=== PATIENT | male | born 1940 | race Caucasian/White ===

== ENCOUNTER → 2017-03-25 | Outpatient (CLI) | payer MEDICARE ==
[~2017-03-25] MED LIST: AMLO5TAB2 PO; APIX1TAB PO; ASPI81TA28 PO; CHOL1000 PO; COEN1CAP7 PO; CTP/1 PO; FENO145T26 PO; FOLI20CA PO; FURO20TA PO; GLUCTAB32 PO; INSDGI SC; INSU100I2 SC; IRBE1TAB50 PO; LABE200T3 PO; LEUP30IN3 IM; MAGN250T16 PO; NIAC50TA9 PO; NITR0.4S UT; OMG3 PO; PANT1TAB48 PO; TAMS0.4C38 PO; TRAM-10 PO; VITA400C15 PO
[2017-03-25 18:40] LABS: URINE APPEARANCE CLEAR (CLEAR); URINE BILIRUBIN NEG (NEG); URINE COLOR DK YELLOW; URINE NITRITE NEG (NEG); UROBILINOGEN NEG (NEG)
[2017-03-25 18:41] LABS: MANUAL MICROSCOPIC REQUIRED? NO; REVIEW REQ? NO
== END ==
LOC: C.LABSPEC 17:41
PROVIDERS: ATTEND Family Medicine
DX: R30.0 Dysuria (principal)

== ENCOUNTER → 2017-04-03 | Outpatient (CLI) | payer MEDICARE ==
[~2017-04-03] VITALS: Ht 180.3 cm; Wt 115.3 kg
[2017-04-03 09:38] VITALS: BP 104/53; PULSE 86; Ht 180.3 cm; Wt 115.3 kg
== END | disposition home or self-care (01) ==
LOC: C.NEUR 09:15
PROVIDERS: ATTEND Internal Medicine Pulmonary Disease
DX: G47.33 Obstructive sleep apnea (adult) (pediatric) (principal); E66.9 Obesity, unspecified; R06.02 Shortness of breath

== ENCOUNTER → 2017-04-03 | Outpatient (CLI) | payer MEDICARE ==
[2017-04-03 09:57] LABS: CHOLESTEROL/HDL RATIO 3.9
[2017-04-03 10:49] LABS: ESTIMATED AVERAGE GLUCOSE 157 mg/dl; HA1C FLAG Normal (Normal)
== END | disposition home or self-care (01) ==
LOC: C.LAB 07:42
PROVIDERS: ATTEND Internal Medicine Interventional Cardiology
DX: I25.10 Atherosclerotic heart disease of native coronary artery without angina pectoris (principal); E78.2 Mixed hyperlipidemia; E11.9 Type 2 diabetes mellitus without complications; G47.33 Obstructive sleep apnea (adult) (pediatric); E66.9 Obesity, unspecified; R06.02 Shortness of breath

== ENCOUNTER → 2017-05-09 | Outpatient (CLI) | payer MEDICARE ==
[2017-05-09 13:01] LABS: ESTIMATED AVERAGE GLUCOSE 148 mg/dl; HA1C FLAG Normal (Normal)
[2017-05-09 13:42] LABS: ALT/SGPT 25 U/L (12-78); AST/SGOT 20 U/L (15-37); BLOOD UREA NITROGEN 22 mg/dl (7-18)
== END | disposition home or self-care (01) ==
LOC: C.LABPBG 07:50
PROVIDERS: ATTEND Urology
DX: C61 Malignant neoplasm of prostate (principal); I25.10 Atherosclerotic heart disease of native coronary artery without angina pectoris; I65.22 Occlusion and stenosis of left carotid artery; N18.3 Chronic kidney disease, stage 3 (moderate); E11.65 Type 2 diabetes mellitus with hyperglycemia; E78.5 Hyperlipidemia, unspecified; I12.9 Hypertensive chronic kidney disease with stage 1 through stage 4 chronic kidney disease, or unspecified chronic kidney disease; G62.9 Polyneuropathy, unspecified; Z51.81 Encounter for therapeutic drug level monitoring

== ENCOUNTER → 2017-05-24 | Outpatient (CLI) | payer MEDICARE ==
--- NOTE | 2017-05-25 05:53 | PAP/PSG TECHNICIAN REPORT ---
[facility] Overnight Caregiver Polysomnogram Report Study name: None Report date: 05/25/2017 Study date: 05/24/2017 Referring Physician: Dr. Walker Name: VERONICA ALEX Interpreting Physician: Kiko Walker D.O. Date of : 1940 Overnight Caregiver: Zachariah Hewitt RPSGT. Sex: Male Age: 77 StudyType: PSG Weight: 254 lbs Height: 77 years, Height 5' 8" BMI: 38.62 Medications: TRAMADOL HCL 50 MG, ALFUZOSIN HCL ER 10 MG, ASPIRIN 81 MG, LABETALOL HCL 100 MG, HUMALOG, LANTUS, PANTOPRAZOLE SODIUM 40 MG, AMLODIPINE BESYLATE 5 MG, AVAPRO 300 MG, CLONIDINE HCL 0.2 MG, LABETALOL HCL 100 MG, NORVASC, FENOFIBRATE 145 MG, MAGNESIUM 500 MG, COQ 10 100 MG, SLIQUIS 2.5 MG, FOLIC ACID 20 MG, GLUCOSAMINE CHONDR 1500 COMPLEX OMEGA 3, VITAMIN D Patient History PATIENT HAS HISTORY OF DIABETES, HYPERTENSION AND OBESITY. HE GENERALLY GOES TO SLEEP AT DIFFERENT TIMES AND DOESN;T HAVE A REGULAR SLEEP ROUTINE. HE WAS TOLD THAT HE SNORES AND HE DOES HAVE SOME FATIGUE DURING THE DAY. HE IS HERE TODAY FOR AN EVALUATION FOR ESTRELLA. ESS = 8 RM 7 Parameters Monitored NPSG: E1-M2, E2-M1, Fp1-M2, Fp2-M1, F3-M2, F4-M2, F4-M1, C3-M2, C4-M2, C4-M1, O1-M2, O2-M2, O2-M1, T3-M2, T4-M1, P3-M2, P4-M1, CHIN1, CHIN2, HR, EKG, Legs, PFLOW, SNOR, FLOW, CFLOW, Tidal Volume, THOR, ABDO, SpO2, PLTH, CPRESS, ETCO2 Wave, ETCO2, pH Sleep Architecture Sleep Stages Time at Lights Off 10:28:02 PM STAGES Time (min.) TST (%) Time at Lights On 5:26:32 AM Wake 69.0 -- Total Recording Time (TRT) 419.50 min. N1 28.0 8 Total Sleep Period (TSP) 408.0 min. N2 270.0 77 Total Sleep Time (TST) 349.5min. N3 6.5 2 Awake Time 70.0 min. REM 45.0 13 Wake after Sleep Onset 69.0 min. Sleep Efficiency (SE) 84 % Sleep Onset Latency (ROGER) 0.0 min. Number of Stage 1 Shifts None Awakenings 19 Stage Changes 93 Number of REM periods 3 REM 45.0 13 REM Latency 271.5 min. NREM 304.5 87 Body Position Analysis Supine Right Left Side Prone Vertical Total Sleep Time (min.) 244.2 113.5 23.2 136.69 0.0 0.0 Total Sleep Time (%) 61% 32% 7% 39 0% N/A% Total Sleep Time REM (min.) 20.0 21.5 3.5 None 0.0 0.0 Total Sleep Time NREM (min.) 192.8 92.0 19.7 None 0.0 0.0 Intermittent Wake (min.) 31.4 26.0 11.5 None 0.0 0.0 Total Sleep Period (%) 57% None None None None None Arousals Myoclonus (PLM) * Events Count Index Events Count Index Spontaneous 43 7 Events Awake (PLMW) 103 89.6 Respiratory 37 6.9 Events Asleep w/ Arousal (PLMA) 2 0.3 PLM 2 0 Events Asleep w/o Arousal (PLMS) 47 8.1 Snoring 19 3 Total Asleep 49 8.4 Total 101 17 Total 152 22 Respiratory Analysis * CA OA MA CH H RERA Total Count 0 2 0 0 130 3 132 Index 0.0 0.3 0.0 0 22.3 1 23.2 Mean Duration 0.0 17.6 0.0 0.00 22.1 17.1 22.0 Longest Duration 0.0 19.9 0.0 0.00 0.0 20.0 50.5 Respiratory Event Summary Total Supine ~Supine Right Left Prone REM NREM Apneas Count 2 2 0 0 0 N/A 0 2 Index 0.3 1 0 0.0 0.0 N/A 0 0 Hypopneas (4% Desat) Count 130 114 16 15 1 N/A 23 107 Index 22.3 32.1 7 7.9 2.6 N/A 30.7 21.1 Apneas & All Hypopneas Count 132 116 16 15 1 N/A 23 109 Index 22.7 33 7 8 3 N/A 30.7 21.5 Respiratory Events (Process Manufacturing Engineer+All Hyp+RERA) Count 132 119 16 15 1 N/A 23 109 Index 23.2 34 7 7.9 2.6 N/A 30.7 22.1 Respiratory Related Arousal Count 37 119 2 2 0 N/A 2 38 Index 6.9 11 1 1 0 N/A 3 7 Snoring Analysis Supine Right Left Prone REM NREM Total Snore duration 8.2 min Snores count 327 5 0 N/A 57 275 332 Snore mean duration 1.5 Sec Snores index 92 3 0 N/A 76.0 54.2 57.0 TST with snoring (%) 2.3% Desaturation Event Summary: Minimum %SpO2 Event Count Mean/Min/Max Duration(sec.) Desaturation Index % Time In Bed > 90 121 34.1 / 10.5 / 71.0 24.4 75.0 86 - 90 19 30.9 / 16.3 / 51.3 12.4 23.2 81 - 85 0 N/A 0.0 1.6 76 - 80 0 N/A 0.0 0.2 71 - 75 0 N/A 0.0 0.0 66 - 70 0 N/A 0.0 0.0 61 - 65 0 N/A 0.0 0.0 56 - 60 0 N/A 0.0 0.0 51 - 55 0 N/A 0.0 0.0 < 50 0 N/A 0.0 0.0 Total REM NREM Awake <50% 0.0 min. 0.0 min. 0.0 min. 0.0 min. 51 - 60% 0.0 min. 0.0 min. 0.0 min. 0.0 min. 61 - 70% 0.0 min. 0.0 min. 0.0 min. 0.0 min. 71 - 80% 1.0 min. 0.3 min. 0.6 min. 0.1 min. 81 - 90% 98.3 min. 14.9 min. 74.7 min. 8.7 min. 91 - 100% 297.7 min. 29.0 min. 222.9 min. 45.8 min. Average 91 91 91 92 Minimum SpO2 77 78 77 79 Desaturation Event Index 18.4 28.0 19.5 7.0 # Desat. Events below 89% 87 15 66 6 Time(%) with Saturation below 89% 7.8 1.6 5.6 0.6 Time(min.) with Saturation below 89% 31.0 6.4 22.4 2.3 Time (mins) REM (mins) NREM (mins) % of TST SpO2 Below 90% 112 21 N91 13.7 SpO2 Below 88% 47 0 0 5 Heart Rate Analysis Min (bpm) Max (bpm) Average (bpm) Awake 55 145 91 NREM 41 133 84 REM 64 141 85 Overall 41 141 84 Supplemental O2 Values Minimum O2 level: None Value Start Time End Time Overnight Caregiver Comments Mr. Alex slept in the right, left and supine positions. EKG was irregular at times and increased HR noted. Leg movements noted. No bruxism noted. Snoring was noted and scored as a 3 on a scale of 1 through 5. (0=no snoring, 5=snoring loud enough to be heard through a closed door or down the [address] way) Mr. Alex awoke to use the restroom 1 time during the night. Mr. Alex stated I slept as well as I do when I am in my own bed. The final report will be interpreted and signed by a sleep physician. The completed physician report will then be placed in the patient medical record. Therapy (cm H2O) 0 TIB (min.) 418.5 TST (min.) 349.5 Sleep Onset (min.) 0.0 REM Onset From Sleep (min.) 271.5 Sleep Efficiency % 84 Wakefulness (%) 16 Wakefulness (min.) 70.0 NREM 1 (%) 8 NREM 1 (min.) 28.0 NREM 2 (%) 77 NREM 2 (min.) 270.0 NREM 3 (%) 2 NREM 3 (min.) 6.5 REM (%) 13 REM (min.) 45.0 # Arousals 101 Arousal Index 17 # Snore 332 Snore Index 57.0 AHI 22.7 AHI Supine 33 AHI Non-Supine 7 NREM AHI 21.5 REM AHI 30.7 RDI 23.2 # Obstructive Apnea 2 # Central Apnea 0 # Mixed Apnea 0 # Hypopneas 130 RERAs 3 Total Respiratory Events 135 Time Below SpO2 89% (min.) 28.8 Mean NREM SpO2 (%) 91 Mean REM SpO2 (%) 91 Mean Sleep SpO2 (%) 91 Min NREM SpO2 (%) 77 Min REM SpO2 (%) 78 Position Supine (min.) 244.2 Position Non-supine (min.) 136.7 LM Index Sleep 8.4 LM Index NREM 7.5 LM Index REM 14.7 Mean Heart Rate (bpm) 84 Min Heart Rate (bpm) 41
--- NOTE | 2017-06-02 17:48 | Sleep Study ---
Sleep Study Report Date of Service: 05/24/2017 Sleep Study Report CLINICAL DATA: Patient is referred by Dr. Rojo for an in-lab sleep study. He is a 77-year- old male with a history of snoring, disturbed nocturnal sleep, and daytime tiredness. He has an [place] score of 8 out of a possible 24. The patient was hospitalized earlier this year with pneumonia. He was told of probable sleep apnea at that time. His BMI is elevated at 38.62. SLEEP ARCHITECTURE: The total sleep period is 408.0 minutes. The total sleep time is 349.5 minutes. The sleep efficiency is mildly reduced to 84 percent. Sleep onset latency was 0 minutes wake after sleep onset was 69 minutes. The REM latency was severely prolonged to 271.5 minutes. Sleep consisted of stage N1 8 percent , stage N2 77 percent, stage N3 2 percent, and stage REM 13 percent. AROUSAL DATA: Patient had a total of 101 arousals including 43 spontaneous arousals, 37 respiratory arousals, 2 PLM arousals, and 19 snoring arousals. The arousal index was 17. PLM data: The patient had 49 periodic limb movements of sleep for an index of 8.4. There were 2 arousals for a PLM arousal index of only 0.3. RESPIRATORY DATA: Patient had a total of 132 respiratory events including 2 obstructive apneas and 130 hypopneas. Hypopneas were scored according to the 4 percent desaturation rule. The longest apnea was 19.9 seconds. The mean duration of the hypopneas was 22.1 seconds. The apnea-hypopnea index was moderately elevated at 22.7 events per hour. This is compatible with moderate sleep apnea. OXIMETRY DATA: The average saturation was 91 percent. The minimum saturation was 77 percent. There was a total of 31 minutes with saturations less than 89 percent. EKG: The underlying cardiac rhythm was atrial fibrillation. The rates were elevated throughout the night. Most of the night the heart rate was about 130. The maximum heart rate was 145. 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 EKG was irregular and increased heart rate noted. Leg movements noted. No bruxism noted. Snoring was noted and scored as a 3 on a scale of 1 through 5. IMPRESSIONS: 1. Obstructive sleep apnea-moderate 2. Cardiac arrhythmia-probable atrial fibrillation with increased rate COMMENTS: The patient has moderate sleep apnea. The majority of the events occurred when the patient was supine. His apnea-hypopnea index in the supine position was 33 and was only 7 in the nonsupine positions. More prominent was his cardiac arrhythmia with increased heart rates. It is unknown with certainty if the patient has a history of atrial fibrillation. Clearly the patient should be treated for sleep apnea. RECOMMENDATIONS: 1. It is advised that the patient be treated with nasal CPAP. This could either be done with an in-lab CPAP titration or with auto CPAP. 2. The patient should contact his primary care physician as soon as possible for an evaluation regarding the increased heart rate. 3. Weight loss is advised in light of the elevation of body mass index of 38.62. Copies To 1: Kiko Walker DO; Mary Rojo M.D.
== END | disposition home or self-care (01) ==
LOC: C.NEUR 21:00
PROVIDERS: ATTEND Internal Medicine Pulmonary Disease
DX: G47.33 Obstructive sleep apnea (adult) (pediatric) (principal)

== ENCOUNTER → 2017-06-20 | Outpatient (CLI) | payer MEDICARE | END | disposition home or self-care (01) | LOC: C.PATHSPEC 10:47 | PROVIDERS: ATTEND Urology | DX: C61 Malignant neoplasm of prostate (principal); R82.8 Abnormal findings on cytological and histological examination of urine ==

== ENCOUNTER → 2017-07-25 | Outpatient (CLI) | payer MEDICARE ==
[~2017-07-25] VITALS: Ht 179.1 cm; Wt 118.6 kg
[2017-07-25 12:27] VITALS: BP 110/67; PULSE 80; Ht 179.1 cm; Wt 118.6 kg
== END | disposition home or self-care (01) ==
LOC: C.NEUR 11:23
PROVIDERS: ATTEND Internal Medicine Pulmonary Disease
DX: G47.33 Obstructive sleep apnea (adult) (pediatric) (principal); R06.02 Shortness of breath; J84.9 Interstitial pulmonary disease, unspecified

== ENCOUNTER → 2017-08-02 | Outpatient (CLI) | payer MEDICARE ==
--- NOTE | 2017-08-02 12:30 | DIAGNOSTIC IMAGING REPORT ---
(CHEST) THORAX WITHOUT CLINICAL HISTORY: R06.02 SOB (shortness of breath)J84.9 Interstitial lung diseaseC COMPARISON STUDY: 01/25/2016 CT DOSE: 994.61 mGy.cm TECHNIQUE: CT of the thorax was performed from the thoracic inlet to the lung bases. Images are reviewed in the axial, sagittal, and coronal planes. IV contrast was not administered for this examination. A dose lowering technique was utilized adhering to the principles of ALARA. FINDINGS: Thyroid: Imaged portions of the thyroid gland are normal in appearance. Thoracic aorta: The ascending thoracic aorta measures 35 mm. Heart: The heart is enlarged. There are coronary artery calcifications present. Lungs and pleural spaces: There are no significant pleural effusions. There is a 2 cm left lower lobe lung cyst. There is no lobar consolidation. There are scattered granulomatous calcifications present. There is mild subpleural reticulation. There is minor bronchiectasis. There is mild right lower lobe honeycombing. This is a UIP pattern. Mediastinum: There is no mediastinal lymphadenopathy. Zarina: There is no evidence of pathologic hilar adenopathy given the limitations of a noncontrast study Axilla: There is no evidence of pathologic axillary lymphadenopathy Upper abdomen: There is stable hepatic calcifications Skeletal structures: There are no lytic or blastic osseous lesions. IMPRESSION: 1. Slight progression in the subpleural reticulation, mild lower lobe bronchiectasis, and right lower lobe honeycombing. This is a UIP pattern. Electronically signed by: Reji Grimm M.D. 08/02/2017 12:29 PM Dictated Date/Time: 08/02/2017 12:23 PM
== END | disposition home or self-care (01) ==
LOC: C.CTS 12:05
PROVIDERS: ATTEND Internal Medicine Pulmonary Disease
DX: J84.9 Interstitial pulmonary disease, unspecified (principal); R06.02 Shortness of breath

== ENCOUNTER → 2017-11-21 | Outpatient (CLI) | payer MEDICARE ==
[~2017-11-21] MED LIST changes: +ACET-24 PO; +IRBE-39 PO; +LABE1TAB28 PO; +NIAC500T11 PO; +ONDA-170 PO; +PANT1TAB3 PO; -PANT1TAB48 PO
[2017-11-21 13:35] VITALS: BP 170/76; PULSE 66; TEMP 36.6; O2SAT 97
--- NOTE | 2017-11-21 16:42 | Radiation Oncology Follow-Up ---
Radiation Oncology Follow-Up Date of Visit Nov 21, 2017. Reason For Visit Annual follow-up Radiation Completion Date 04/17/16 Diagnosis (1) Prostate cancer Status: Resolved Onset Date: 09/07/2015 Permanent Comment: DIAGNOSIS: Prostate, adenocarcinoma, jeanne 4 + 3, PSA 6.0 , cT1cN0, group IIA Rising PSA, pretreatment PSA 6.02 Status post biopsies 09/07/2015 revealing adenocarcinoma TREATMENT: 1. Brachytherapy - 01/17/16 - Cesium-131 - 8500 cGy 2. Lupron - 6 month ADT, neoadjuvant, concurrent, adjuvant 3. Prostate seed implant completed 01/17/2016 receiving 8500 cGy 51 seeds were placed 4. Status post completion of IMRT/IGRT completed 04/17/2016 received 4500 cGy Last Edited By: Charlene Grullon on April 27, 2016 09:52 History of Present Illness Mr. Ortez has a history of noninvasive bladder cancer treated with TURBT and intravesicular BCG therapy who recently presented with an elevated PSA of 6.02. This prompted a a transrectal ultrasound-guided biopsy which was completed by Dr. Gann on 09/07/2015 which revealed prostate cancer and 8/14 cores. Perineural invasion was identified. Jeanne 3+4 = 7 and [place] 4+3 = 7 prostate adenocarcinoma was identified in all of the biopsy specimens that were positive for cancer. Currently, he has not had any staging workup scans. He recently met with radiation oncology (Dr. Calderón) and GEETA Gerard. They recommended androgen deprivation therapy with external beam radiation therapy. He was given hormonal suppression for a total 6 months. He had a prostate seed implant 01/17/2016 followed by IMRT/IGRT. Interim History He is been doing well over this past year. He denies any difficulty with urination. He gave an AUA score of 5. He completed expanded prostate cancer index composite for clinical practice and gave a score of 0 of 12 in urinary incontinence symptoms. He gave a score of 0 of 12 urinary irritation symptoms. He gave a score of 0 of 12 in bowel symptoms. He gave a score of 12 of 12 and sexual symptoms. He gave a score of 412 and hormonal vitality symptoms. His total was 16 of 60. He continues to have hot flashes though the hormone suppression was completed nearly a year ago. These are less frequent and less intense over time. He has had recheck PSAs. He had a PSA 05/09/2017 that was 0.014. Allergies Coded Allergies: No Known Allergies (Unverified , 01/17/16) Home Medications Scheduled Amlodipine Besylate (Norvasc), 5 MG PO DAILY Apixaban (Eliquis), 2.5 MG PO BID Aspirin (Aspirin Ec), 81 MG PO DAILY Cholecalciferol (Vitamin D3), 1 TAB PO QAM Clonidine Hcl (Catapres), 0.2 MG PO TID Coenzyme Q10 (Ubidecarenone) (Coq10), 1 CAP PO QPM Fenofibrate (Tricor), 50 MG PO QAM Fish Oil (Fish Oil), 4 CAP PO BID Folic Acid (Folic Acid), 40 MG PO BID Furosemide (Lasix), 1 TAB PO QAM Cnlymropsoq-Ermbltmumlx-Rz Cho (Glucosamine Chondroitin &), 1 TAB PO BID Insulin Glargine (Lantus), 34 UNITS SC BID Insulin Lispro (Human) (Humalog Kwikpen), 10-16 UNITS SC AC Irbesartan (Irbesartan), 1 TAB PO QPM Labetalol Hcl (Trandate), 100 MG PO BID Magnesium Oxide (Mg Supplement (Magnesium Oxide), 500 MG PO QAM Niacin (Niacin), 150 MG PO HS Scheduled PRN Tramadol (Ultram), 50 MG PO Q4-6H PRN for Pain Review of Systems Gastrointestinal: Symptoms: WNL, Constipation GI Comments: uses minreral oil prn Oral: Symptoms: No Problems Respiratory: Symptoms: WNL Respiratory Comments: using CPAP hs Urinary: Symptoms: WNL Comments: nocturia times 2 Skin: Symptoms: No Problems Other Skin Symptoms: " dry " Physical Exam Vital Signs Date Time Temp Pulse Resp B/P (MAP) Pulse Ox O2 Delivery O2 Flow Rate FiO2 11/21/17 13:35 36.6 66 20 170/76 97 Fatigue: None General Appearance: no apparent distress Eyes: normal inspection, EOMI ENT: normal ENT inspection, hearing grossly normal Neck: no adenopathy, thyroid normal Respiratory/Chest: lungs clear, no respiratory distress, no accessory muscle use Cardiovascular: regular rate, rhythm, no gallop, no murmur Abdomen: non tender, soft, no organomegaly Extremities: no pedal edema Neurologic/Psychiatric: no motor/sensory deficits, alert, normal mood/affect Skin: warm/dry Pain Management Patient Reports Pain: No Side: Bilateral Pain Location: None Patient Preferred Pain Scale: 0 - 10 Initial Pain Intensity: 0.0 Pain Management Plan He denies pain therefore requires no pain management. Laboratory Laboratory Results: were reviewed, and pertinent findings noted below Laboratory Comments: Test 11/21/17 13:54 Prostate Specific Antigen 0.032 ng/ml (0.000-4.000) Assessment & Plan Plan: He was also seen today by Dr. Crowley. The PSA was drawn and he'll be notified as to results. He'll continue either follow-up with Dr. Weinstein and have a recheck PSA in 6 months. We asked him to return to our office in 1 year. He may call if he has the questions or concerns in the interim. Total Time In Follow-Up I spent 20 minutes speaking to the patient and performing examination. I spent 15 minutes reviewing information in completing this note. Copy To George Weinstein MD; Augusto Kye M.D.; Mary Rojo MD
== END | disposition home or self-care (01) ==
LOC: C.ONC 13:22
PROVIDERS: ATTEND Physician Assistant Medical
DX: Z08 Encounter for follow-up examination after completed treatment for malignant neoplasm (principal); Z92.3 Personal history of irradiation; Z85.46 Personal history of malignant neoplasm of prostate

== ENCOUNTER → 2018-04-09 | Outpatient (CLI) | payer MEDICARE ==
[~2018-04-09] MED LIST changes: -ACET-24 PO; -IRBE-39 PO; -LABE1TAB28 PO; -LEUP30IN3 IM; -NIAC500T11 PO; -NITR0.4S UT; -ONDA-170 PO; -PANT1TAB3 PO; -TAMS0.4C38 PO; -VITA400C15 PO
[2018-04-09 15:31] LABS: CHOLESTEROL 181 mg/dl (0-200); LDL CHOLESTEROL (DIRECT) 120 mg/dl
== END | disposition home or self-care (01) ==
LOC: C.LABPBG 07:58
PROVIDERS: ATTEND Internal Medicine Interventional Cardiology
DX: E78.2 Mixed hyperlipidemia (principal); I25.118 Atherosclerotic heart disease of native coronary artery with other forms of angina pectoris

== ENCOUNTER → 2018-06-24 | Outpatient (CLI) | payer MEDICARE ==
[~2018-06-24] MED LIST changes: +IRBE-39 PO; -IRBE1TAB50 PO; +LABE1TAB28 PO; -LABE200T3 PO; +NIAC500T11 PO; -NIAC50TA9 PO; +PANT1TAB3 PO
== END | disposition home or self-care (01) ==
LOC: C.LAB 14:05
PROVIDERS: ATTEND Urology
DX: C61 Malignant neoplasm of prostate (principal)

== ENCOUNTER → 2018-06-30 | Outpatient (CLI) | payer MEDICARE ==
[~2018-06-30] MED LIST changes: +ACET-24 PO; +ONDA-170 PO
== END | disposition home or self-care (01) ==
LOC: C.PATHSPEC 17:11
PROVIDERS: ATTEND Urology
DX: C61 Malignant neoplasm of prostate (principal)

== ENCOUNTER → 2018-07-02 | Outpatient (CLI) | payer MEDICARE | END | disposition home or self-care (01) | LOC: C.LAB 10:06 | PROVIDERS: ATTEND Urology | DX: C61 Malignant neoplasm of prostate (principal) ==

== ENCOUNTER 2018-07-03 06:17 | Inpatient (IN) | payer MEDICARE, OTHER ==
[2018-05-26 14:43] VITALS: BMI 35.0
--- NOTE | 2018-06-19 10:34 | HISTORY & PHYSICAL EXAMINATION ---
DATE OF ADMISSION: 07/03/2018 CHIEF COMPLAINT: Left knee pain. HISTORY OF PRESENT ILLNESS: Chester is a 78-year-old male with a 2-year history of left knee pain. The patient rates his pain at 10/10. He has pain with his daily activities. He has limited standing and walking tolerance. Pain is worse with weightbearing. The patient has had injections, bracing, and ambulates with a cane. He has failed conservative treatment and is scheduled for elective left knee replacement. PAST MEDICAL HISTORY: Heart disease, history of PE 2015, history of DVT, diabetes with A1c of 7.1, history of prostate/bladder cancer. PAST SURGICAL HISTORY: Cardiac bypass, shoulder rotator cuff repair, and left carotid endarterectomy. SOCIAL HISTORY: The patient drinks 1-2 drinks per month. He denies tobacco use. He lives in a single [place] home. He is and retired. FAMILY HISTORY: Negative for DVT. MEDICATIONS: Amlodipine 5 mg daily, aspirin 81 mg, Avapro 300 mg, clonidine 0.2 mg t.i.d., CoQ10 100 mg, Eliquis 2.5 mg b.i.d., fenofibrate 145 mg daily, folic acid 20 mg 2 tablets daily, furosemide 20 mg daily, glucosamine, Humalog, labetalol 100 mg b.i.d., Lantus, magnesium 500 mg, Norvasc, omega 3 fish oil, tramadol 50 mg, vitamin D 1000 units. ALLERGIES: None. REVIEW OF SYSTEMS: See HPI. Ten other systems reviewed, all negative. PHYSICAL EXAMINATION: VITAL SIGNS: Height 5 feet 10 inches, weight 254 pounds, BMI 36. GENERAL: This is a well-developed, well-nourished male who is alert and oriented x3. Mood and affect are appropriate. HEENT: Normocephalic, atraumatic. Mucous membranes are moist and intact. NECK: Supple without lymphadenopathy. He does have a right bruit. HEART: Regular rate and rhythm without murmurs, rubs, or gallops. LUNGS: Clear to auscultation without wheezes or rhonchi. ABDOMEN: Soft and nontender. Bowel sounds are equal and active. EXTREMITIES: No ecchymosis, redness, or warmth. Thigh and calf are soft and nontender. He has +1 distal edema. He has moderate effusion. Alignment is neutral. He has range of motion from 0-115 degrees with +1 laxity. X-RAY EXAMINATION: AP and lateral views show joint space narrowing and osteophyte formation. IMPRESSION: Degenerative joint disease, left knee. PLAN: The patient will be admitted for a left total knee arthroplasty with Dr. Costello. We will plan on resuming his Eliquis postop for DVT prophylaxis. He will have [facility] for home physical therapy. The patient is scheduled to have his carotids worked up in [place] some time before his surgery.
[2018-07-03] VITALS (9 sets, daily range): BP systolic 121–148; BP diastolic 56–76; PULSE 48–61; TEMP 35.6–36.8; O2SAT 92–98; Ht 180.3 cm; Wt 113.6 kg
[~2018-07-03] VITALS: Ht 180.3 cm; Wt 113.6 kg
[~2018-07-03 06:17] MED LIST changes: -ACET-24 PO; +ACETAMINOPHEN 500 MG TAB PO SCH; +CEFAZOLIN 2000MG IV PUSH 15 ML IV SCH; +CeleBREX 200 MG CAP PO SCH; +DEXAMETHASONE 4 MG TAB PO SCH; +FAMOTIDINE 20 MG TAB PO SCH; +GABAPENTIN 300 MG CAP PO SCH; +LACTATED RINGER'S 1000ML 1,000 ML IV SCH; +LACTATED RINGER'S 1000ML 500 ML IV SCH; +METOCLOPRAMIDE HCL 10 MG TAB PO SCH; -ONDA-170 PO; +ROPIVACAINE 5MG/ML 30 ML 150 MG, BUPIVACAINE 0.5% MPF INJ 30 ML, EpINEphrine HCL INJ 0.... INFIL SCH
[2018-07-03] MEDS: TRANEXAMIC ACID INJ 1,000 MG x 2 Bags IV SCH ×4 (06:30→08:17)
[2018-07-03] MEDS ORDERED: BACITRACIN 50000 UNIT VIAL ONE (07:47)
[2018-07-03] MEDS ORDERED: ORTHO JOINT ANESTHETIC ONE (07:47)
[2018-07-03] MEDS ORDERED: POVIDONE-IODINE OP SOLN 30 ML BTL ONE (07:47)
[2018-07-03] MEDS ORDERED: ONDANSETRON INJ 2 MG/ML 2 ML VIAL IV PRN ×2 (08:00→10:15)
[2018-07-03] MEDS ORDERED: FENTANYL CITRATE INJ 50 MCG/1 ML 2 ML VIAL IV PRN (08:00)
[2018-07-03] MEDS ORDERED: EpHEDrine SULFATE INJ 50 MG/ML AMP IV PRN (08:00)
[2018-07-03] MEDS ORDERED: ATROPINE SULFATE 0.1 MG/ML 5ML SYR IV PRN (08:00)
--- NOTE | 2018-07-03 08:29 | History & Physical Bridge Note ---
H&P Re-Evaluation Bridge Note: I have examined the patient, reviewed the History & Physical and in the interval since the performance of the History & Physical I have noted the following changes of clinical significance: No changes noted
--- NOTE | 2018-07-03 09:31 | [facility] Post Operative Brief Note ---
Immediate Operative Summary Operative Date Jul 03, 2018. Pre-Operative Diagnosis Degenerative Joint Disease, Left Knee Post-Operative Diagnosis Degenerative Joint Disease, Left Knee Procedure(s) Performed Left Total Knee Arthroplasty Cemented Surgeon Dr. Wilda Costello Split Leather Department Supervisor Surgeon(s) Brain Blake PA-C Estimated Blood Loss 20cc Findings Consistent with Post-Op Diagnosis Specimens As Per Surgeon A. Left Knee Bone and Tissue Anesthesia Type MAC Spinal Regional Complication(s) none Disposition Accompanied Pt To Recover: no Disposition: Recovery Room / PACU Overlapping Procedure I was present for: the critical portions of procedure. I was immediately available: during the entire case
[2018-07-03] MEDS ORDERED: TAMSULOSIN HCL 0.4 MG CAP PO PRN (10:15)
[2018-07-03] MEDS ORDERED: OXYCODONE HCL IR 5 MG TAB (IMMEDIATE RELEASE) PO PRN (10:15)
[2018-07-03] MEDS ORDERED: METOCLOPRAMIDE HCL INJ 5 MG/ML 2 ML VIAL IV PRN (10:15)
[2018-07-03] MEDS ORDERED: ALUMINUM/MAGNESIUM/SIMETH (MAALOX MAX) 30 ML UDC PO PRN (10:15)
[2018-07-03] MEDS ORDERED: MAGNESIUM HYDROXIDE SUSP 30 ML UDC PO PRN (10:15)
[2018-07-03] MEDS ORDERED: MoRPHine SULFATE 2 MG/ML CARP IV PRN (10:15)
[2018-07-03] MEDS ORDERED: ZOLPIDEM TARTRATE 5 MG TAB PO PRN (10:15)
[2018-07-03] MEDS ORDERED: CEFAZOLIN IV 2,000 MG in DEXTROSE 5% 50ML 50 ML IV SCH (10:15)
--- NOTE | 2018-07-03 10:15 | OPERATIVE REPORT ---
DATE OF OPERATION: 07/03/2018 PREOPERATIVE DIAGNOSIS: Osteoarthritis, left knee. POSTOPERATIVE DIAGNOSIS: Osteoarthritis, left knee. PROCEDURE: Left total knee arthroplasty. SURGEON: Dr. Costello. GRADING CLERK: Arturo Blake PA-C. ANESTHESIA: Spinal. COMPLICATIONS: None. IMPLANTS USED: Femoral size 5, tibia size 5, tibial poly 11, patella size 39. OPERATION AND FINDINGS: Following induction of spinal anesthesia, the patient's left leg was prepped and draped in the usual sterile manner. Limb was exsanguinated with an Esmarch bandage and tourniquet was inflated to 350 mmHg. A longitudinal incision was made anteriorly. Subcutaneous tissue was sharply dissected. Electrocautery was used for hemostasis. Prepatellar bursa was incised and median parapatellar incision was performed. Patella was everted and the knee was flexed. Fat pad was removed to aid in visualization and the anterior and posterior cruciate ligaments were removed. The medial face of the tibia was cleared of soft tissue first with a Bovie and a Chicas elevator. This tissue was retracted posteriorly using a blunt Hohmann. A Sierra retractor was used to expose the synovium above on the anterior aspect of the femur and this was removed down to bone. The PSI guide was placed on the distal femur and two pins were placed anteriorly and kept in position and two additional pins were placed distally and removed. The distal femoral cutting block was placed in position and the distal femoral cut was used in the +0 setting. Next, the cutting block was removed and the size 5 block was placed in the distal end of the femur. Care was taken to ensure appropriate external rotation and feeler gauge was used to ensure no notching would occur. The femoral block was centered on the distal femur and in the medial and lateral direction and was fixed using two bone screws. The gold pins were then removed. The oscillating saw was used to create the bone cuts and the distal femoral cutting block was removed and the reciprocating saw was used to further trim the femoral cuts as well as a deep in the area for the trochlear groove. Next, posterior condyle remnants were removed. Following this, a meniscal clamp and knife were utilized to remove the anterior portion of both medial and lateral meniscus. The proximal tibia PSI guide was placed into position and the proximal tibial cutting guide was screwed into position. The extra medullary alignment guide was utilized to ensure appropriate alignment. The proximal tibia was cut and the proximal tibial cutting block was removed and this bone fragment was removed. The appropriate guide was used to perform the notch cut on the distal femur and a lamina monorail helper and a cochlear knife were utilized to finish both medial and lateral meniscectomies to remove any remnants of the posterior or anterior cruciate ligaments. Following this, the distal femoral component was impacted into position and blunt Xin was used to sublux the tibia anteriorly. The proximal tibia was sized and a size 5 tibial tray was chosen as the size to be used. This was put into position and appropriate external rotation and a double check with extramedullary alignment guide was performed. The canal for the tibial stem was prepared first with a 17 mm drill and then the punch and a mallet and the trial tibial poly was placed. A tibial poly 11 was chosen the size to be used. It was brought to extension and the patella was prepared with the patellar reamer. A patella size 39 component was chosen the size to be used. The trial component was placed and knee was taken through a full range of motion and there was found to be no lateral subluxation of the tibia. No lateral release was required. The trials were all removed. The final components were obtained and assembled. Cement was mixed. The knee was thoroughly irrigated and the ortho mix was injected about the knee joint. The final components were cemented into position. After thoroughly suctioning and drying the bone ends, all excess cement was removed. The knee was held in extension while the cement hardened. The wound was irrigated and closed over a Hemovac drain. #1 Vicryl was used to close the extensor mechanism. Subcutaneous tissues closed using 0 Dexon. Skin was closed with kuldeep. Sterile dressing of Adaptic, 4 x 4's, sterile Webril, and Daniel was applied. The patient tolerated the procedure well. Due to the complex nature of the procedure, the entire surgery was performed with the operational assistance of Arturo Blake PA-C. The social services assistant, under direct supervision, was involved in the actual performance of all aspects of the surgical procedure including hemostasis, tissue retraction and incision, instrument management, patient positioning, and wound closure. DISPOSITION: Recovery room, stable. I attest to the content of the Intraoperative Record and any orders documented therein. Any exception s are noted below.
--- NOTE | 2018-07-03 10:37 | DIAGNOSTIC IMAGING REPORT ---
L KNEE 1 OR 2 VIEWS ROUTINE HISTORY: 78 years-old Male AP/LATERAL IN PACU LEFT KNEE left knee total joint arthroplasty. Degenerative joint disease COMPARISON: None available TECHNIQUE: 2 views of the left knee FINDINGS: Left knee total joint arthroplasty with patellar resurfacing. Alignment is satisfactory without acute fracture, malalignment or definite opaque foreign body. There are 2 surgical kuldeep projecting over the medial tissues. Expected postsurgical soft tissue swelling and deep tissue air with drainage catheter in place. Calcified bodies are seen posterior to the joint space. IMPRESSION: Left knee total joint arthroplasty and patella resurfacing with satisfactory alignment. The above report was generated using voice recognition software. It may contain grammatical, syntax or spelling errors. Electronically signed by: Rusty Villa M.D. 07/03/2018 10:36 AM Dictated Date/Time: 07/03/2018 10:35 AM
--- NOTE | 2018-07-03 11:55 | Medical Consult ---
Consultation Date of Consultation: Jul 03, 2018. Attending Physician: Manas Costello M.D. Reason for Consultation: Postoperative care for left total knee arthroplasty History of Present Illness This is a 78-year-old male that presents for elective left total knee arthroplasty with cement. He is POD #[address] Costello. Procedure was done with a femoral block with MAC spinal regional anesthesia. Estimated blood loss was 20 cc. Patient tolerated the procedure well with no complications. Patient reports that he has had ongoing osteoarthritis and has follow with Dr. Costello. This was an elective procedure. Patient currently denies any pain in his left knee. There is currently an ice pack in place and a drain with serosanguineous drainage. Patient does report history of diabetes mellitus that is controlled with Lantus and sliding scale insulin. He checks his sugar for 5 times a day. Typically his BSG is less than 200 and greater than 100. Patient has had no recent history or fever. He did receive Lupron injections for prostate cancer in the past and continues to have sweats. He does have a history of prostate cancer, bladder cancer, and melanoma. His last course of chemotherapy was 10 years ago. He is followed regularly and in fact had a cystoscopy recently which was negative. He has extensive CAD and has a history of CABG X 4 and PCI with stenting X 5. The patient is on chronic anticoagulation with Apixaban for history of B/L PE in 2016. His last dose was Saturday am, 06/30/18. Past Medical/Surgical History PAST MEDICAL HISTORY: 1. Prostate cancer. 2. History of coronary artery disease. He has suffered myocardial infarctions in 1995 and 2000. 3. Diabetes. 4. Hypertension. 5. High cholesterol. 6. Peripheral vascular disease. 7. History of extensive B/L PE 01/25/16 8. Acute left lower extremity DVT involving the common femoral vein 9. Chronic anticoagulation with Eliquis (Apixaban) 10. CKD stage III 11. MIRYAM PAST SURGICAL HISTORY: 1. Brachytherapy for prostate cancer. 2. Coronary bypass grafting in 2005. 3. Left carotid endarterectomy. 4. Hemorrhoidectomy. 5. Cardiac catheterization x10 he has had numerous stents placed. 6. ORIF of right lower extremity. 7. Right rotator cuff repair. Family History Heart disease Hypertension Social History Smoking Status: Former Smoker (Quit 50 years ago after a brief period of smoking) Housing Status: lives with family Occupation Status: retired Allergies Coded Allergies: No Known Allergies (Unverified , 07/03/18) Home Medications Home Meds and Scripts Medications Dose Route/Sig Max Daily Dose Days Date Category Dose Instructions Protonix (Pantoprazole) 40 Mg Tab 40 Mg PO QAM 05/28/18 Reported Normodyne (Labetalol HCl) 200 Mg Tab 100 Mg PO BID 05/26/18 Reported Avapro (Irbesartan) 300 Mg Tab 1 Tab PO QPM 90 05/26/18 Reported Niacin 500 Mg Tab 1,500 Mg PO HS 05/26/18 Reported Eliquis (Apixaban) 2.5 Mg Tab 2.5 Mg PO BID 11/22/16 Reported Aspirin Ec (Aspirin) 81 Mg Tab 81 Mg PO QAM 04/02/16 Reported Norvasc (Amlodipine Besylate) 5 Mg Tab 5 Mg PO QAM 01/13/16 Reported Glucosamine Chondroitin & (Cmxjfchwzxb-Qzftqkehsba-Aa Cho) 1 Tab Tab 1 Tab PO BID 01/05/16 Reported Ultram (Tramadol HCl) 50 Mg Tab 100 Mg PO Q4-6H PRN 09/30/15 Reported Fish Oil 1 Gm Cap 2 Cap PO BID 09/30/15 Reported Magnesium Oxide (Magnesium Oxide (Mg Supplement) 250 Mg Tab 500 Mg PO QAM 09/30/15 Reported Humalog Kwikpen (Insulin Lispro (Human)) 100 Unit/Ml Inj 10-16 Units SC AC 09/30/15 Reported SLIDING SCALE Lantus (Insulin Glargine) 100 Unit/Ml Inj 36 Units SC BID 09/30/15 Reported Lasix (Furosemide) 20 Mg Tab 1 Tab PO QAM 90 09/30/15 Reported Folic Acid 20 Mg Cap 20 Mg PO BID 09/30/15 Reported Tricor (Fenofibrate) 145 Mg Tab 0.5 Tab PO QAM 09/30/15 Reported Coq10 (Coenzyme Q10 (Ubidecarenone)) 200 Mg Cap 100 Mg PO HS 09/30/15 Reported Catapres (Clonidine Hcl) 0.1 Mg Tab 0.2 Mg PO TID 09/30/15 Reported Vitamin D3 (Cholecalciferol) 1,000 Unit Tab 1 Tab PO QAM 30 09/30/15 Reported Current Inpatient Medications Current Inpatient Medications Medications (Trade) Dose Ordered Sig/Rolf Route Start Time Stop Time Status Last Admin Dose Admin Cefazolin Sodium 15 ml @ 3.75 mls/ min PREOP IV 07/03/18 06:00 07/03/18 18:00 07/03/18 08:20 3.75 MLS/MIN Acetaminophen (Tylenol Tab) 1,000 mg PREOP PO 07/03/18 06:00 07/03/18 18:00 07/03/18 07:31 1,000 MG Dexamethasone (Decadron Tab) 8 mg PREOP PO 07/03/18 06:00 07/03/18 18:00 07/03/18 07:31 8 MG Famotidine (Pepcid Tab) 20 mg PREOP PO 07/03/18 06:00 07/03/18 18:00 07/03/18 07:30 20 MG Gabapentin (Neurontin Cap) 300 mg PREOP PO 07/03/18 06:00 07/03/18 18:00 07/03/18 07:31 300 MG Metoclopramide HCl (Reglan Tab) 10 mg PREOP PO 07/03/18 06:00 07/03/18 18:00 07/03/18 07:31 10 MG Lactated Ringer's 1,000 ml @ 15 mls/hr Q24H IV 07/03/18 06:00 07/04/18 05:59 Fentanyl Citrate (Fentanyl Inj) 25 mcg Q5M PRN IV 07/03/18 08:00 07/03/18 14:00 Ondansetron HCl (Zofran Inj) 4 mg ONE PRN IV 07/03/18 08:00 07/03/18 14:00 Ephedrine Sulfate (EpHEDrine SULFATE INJ) 5 mg Q5M PRN IV 07/03/18 08:00 07/03/18 14:00 Atropine Sulfate (Atropine Sulfate 0.1mg/ml Inj) 0.5 mg Q1M PRN IV 07/03/18 08:00 07/03/18 14:00 Sodium Chloride 1,000 ml @ 100 mls/hr Q10H IV 07/03/18 12:00 07/04/18 11:59 Cefazolin Sodium 2000 mg/Dextrose 65 ml @ 100 mls/hr Q8H IV 07/03/18 10:15 07/03/18 18:53 UNV Ketorolac Tromethamine (Toradol Inj) 15 mg Q6H IV. 07/03/18 10:15 07/04/18 10:14 UNV Oxycodone HCl (Roxicodone Immediate Rel Tab) 1 TABLET FOR PAIN RATING... Q4H PRN PO 07/03/18 10:15 07/17/18 10:14 UNV Morphine Sulfate (MoRPHine SULFATE INJ) For pain rating 1-5 give 2... Q2HWA PRN IV 07/03/18 10:15 07/17/18 10:14 UNV Acetaminophen (Tylenol Tab) 1,000 mg Q8 PO 07/03/18 14:00 08/02/18 13:59 Magnesium Hydroxide (Milk Of Magnesia Susp) 30 ml Q6H PRN PO 07/03/18 10:15 08/02/18 10:14 Docusate Sodium (coLACE CAP) 100 mg BID PO 07/03/18 21:00 08/02/18 20:59 UNV Diphenhydramine HCl (Benadryl Cap) 25 mg Q8H PRN PO 07/03/18 10:15 08/02/18 10:14 UNV Al Hydrox/Mg Hydrox/Simethicone (Maalox Max Susp) 15 ml Q4H PRN PO 07/03/18 10:15 08/02/18 10:14 Zolpidem Tartrate (Ambien Tab) 5 mg HSZ PRN PO 07/03/18 10:15 08/02/18 10:14 UNV Multivitamins (Multivitamin Tab) 1 tab QAM PO 07/04/18 09:00 08/03/18 08:59 UNV Ondansetron HCl (Zofran Inj) 4 mg Q6H PRN IV 07/03/18 10:15 08/02/18 10:14 UNV Metoclopramide HCl (Reglan Inj) 10 mg Q6H PRN IV 07/03/18 10:15 08/02/18 10:14 UNV Ferrous Gluconate (Ferrous Gluconate Tab) 324 mg TIDM PO 07/03/18 12:00 08/02/18 11:59 UNV Tamsulosin HCl (Flomax Cap) 0.4 mg QAM PRN PO 07/03/18 10:15 08/02/18 10:14 UNV Dexamethasone Sodium Phosphate 10 mg/Syringe 2.5 ml @ 1 mls/min TODAY@0730 IV 07/04/18 07:30 07/04/18 09:00 Amlodipine Besylate (Norvasc Tab) 5 mg QAM PO 07/04/18 09:00 08/03/18 08:59 Apixaban (Eliquis Tab) 2.5 mg BID PO 07/04/18 15:00 08/03/18 14:59 UNV Aspirin (Ecotrin Tab) 81 mg QAM PO 07/04/18 09:00 08/03/18 08:59 UNV Clonidine HCl (Catapres Tab) 0.2 mg TID PO 07/03/18 14:00 08/02/18 13:59 UNV Fenofibrate (Tricor Tab) 72.5 mg QAM PO 07/04/18 09:00 08/03/18 08:59 UNV Furosemide (Lasix Tab) 20 mg QAM PO 07/04/18 09:00 08/03/18 08:59 UNV Labetalol HCl (Normodyne Tab) 100 mg BID PO 07/03/18 21:00 08/02/18 20:59 UNV Niacin (Niacin Tab) 1,500 mg HS PO 07/03/18 21:00 08/02/18 20:59 UNV Pantoprazole Sodium (Protonix Tab) 40 mg QAM PO 07/04/18 09:00 08/03/18 08:59 UNV Non-Formulary Medication (Folic Acid ) 20 mg BID PO 07/03/18 21:00 08/02/18 20:59 UNV Irbesartan (Avapro Tab) 300 mg QPM PO 07/03/18 21:00 08/02/18 20:59 Magnesium Oxide (Mag-Ox Tab) 400 mg QAM PO 07/04/18 09:00 08/03/18 08:59 Review of Systems Constitutional: No fever, No chills, No sweats Eyes: No diplopia Respiratory: No cough, No sputum, No wheezing, No shortness of breath, No hemoptysis Abdomen: No pain, No nausea, No vomiting, No diarrhea, No constipation, No GI bleeding Genitourinary - Male: No hematuria Psychiatric: No depression symptoms, No anxiety Hematologic / Lymphatic: No abnormal bleeding/bruising, No swollen lymph nodes Physical Exam Date Time Temp Pulse Resp B/P (MAP) Pulse Ox O2 Delivery O2 Flow Rate FiO2 07/03/18 11:47 36.5 56 18 143/74 (97) 98 Nasal Cannula 2.0 2/18 11:46 Nasal Cannula 2.0 8/2/18 11:13 58 16 8/2/18 11:13 58 16 85 /2/18 11:11 157/63 82/18 11:08 59 15 82/18 11:08 60 15 99 8/2/18 11:06 135/66 82/18 11:03 60 16 2/18 11:03 59 16 96 2/18 11:01 148/72 82/18 10:58 56 19 92 2/18 10:58 56 19 2/18 10:56 148/61 2/18 10:53 57 14 2/18 10:53 56 14 97 07/03/18 10:52 149/66 07/03/18 10:48 56 17 2/18 10:48 56 17 94 2/18 10:48 36.7 61 16 149/66 (95) 97 Nasal Cannula 2 18 10:47 60 16 95 07/03/18 10:47 59 16 2/18 10:46 153/66 07/03/18 10:42 63 19 2/18 10:42 60 19 97 2/18 10:41 140/76 2/18 10:37 54 15 95 07/03/18 10:37 52 15 2/18 10:36 148/66 2/18 10:32 58 12 82/18 10:32 59 12 144/58 98 /2/18 10:27 56 17 82/18 10:27 55 17 99 8/2/18 10:26 153/66 8/2/18 10:22 56 16 8/2/18 10:22 56 16 98 8/2/18 10:21 152/66 8/2/18 10:19 55 16 98 8/2/18 10:19 56 16 8/2/18 10:16 144/63 82/18 10:14 59 16 8/2/18 10:14 58 16 95 8/2/18 10:11 144/62 07/03/18 10:09 59 19 97 07/03/18 10:09 59 19 07/03/18 10:06 131/63 07/03/18 10:05 121/61 07/03/18 10:04 59 17 07/03/18 10:04 36.4 57 20 121/61 (80) 93 Oxymask 10 07/03/18 10:04 57 17 87 07/03/18 07:05 36.8 54 20 137/66 95 Room Air GENERAL : No acute distress. Pleasant EYES: No icterus, gaze conjugate NOSE: No evidence of epistaxis MOUTH: No lesions or candidiasis NECK: Supple. Well healed scar on left anterior triangle from prior left CEA. No appreciation of bruits LUNGS: CTA B/L, no wheezes, rales or rhonchi HEART: Regular, rate controlled ABDOMEN: Soft, NT, ND, BS Present EXTREMITIES: No LE edema, pedal pulses intact. LLE with DANIEL wrap and SCDs to the feet. Drain in left knee with serosanguineous drainage NEURO: A&OX3 Laboratory Results Last 24 Hours Test 07/03/18 06:52 07/03/18 10:13 Bedside Glucose 125 mg/dl 130 mg/dl Assessment & Plan There is a 78-year-old male that is POD #0 from left total knee arthroplasty with cementing by Dr. Costello electively today. Patient tolerated the procedure well. Estimated blood loss 10 cc. Currently pain is well controlled. Left total knee arthroplasty with cementing * POD #0 -Dr. Costello * Drain is in place with serosanguineous drainage * Pain control * Further management per orthopedic History of bilateral pulmonary emboli in 2016 * Chronic anticoagulation with apixaban (Eliquis) * Last dose 06/30/2018 * Resume anticoagulation per orthopedics * Oxygenation adequate on room air * No hemoptysis or pleuritic chest pain CAD * History of CABG 4+ PCI with 5 stents in the past * Continue home medications including Norvasc, aspirin, Catapres, labetalol, niacin, and fenofibrate * Hold Avapro and furosemide pending am labs secondary to CKD * Hemodynamically stable * Currently systolic blood pressure in the 120s with a heart rate in the 50s * Monitor per protocol Diabetes mellitus type 2 * Home medications include Lantus 36 units subcutaneous twice daily and Humalog sliding scale * Hemoglobin A1c 6.9 on 05/28/18 * For now will hold Lantus and start on NovoLog sliding scale insulin * Advance lantus as patient is able to tolerate meals * Glycemic consult with pharmacy CKD * Baseline Supervisor Lamp Shades 1.8 * Check PRP with am labs * Hold Avapro and furosemide pending results of am labs tomorrow * Follow I&Os GERD * Home meds include Pantoprazole * Patient currently on Famotidine * Follow symptomatically HEME * H&H 05/28/18 12.1 and 36.9 * Minimal blood loss with procedure * Check am labs * Hemodynamically stable History of malignancy * Hx of prostate CA * PSA 0.169 * Hx bladder CA * Recent cystoscopy was negative * UA with no occult blood * Follows with Urology * Hx melanoma * Surgical resection in the past with no recurrence * Continue Apixaban for hx of B/L PE * Follow outpatient DVT prophylaxis * Resume Apixaban per ortho tomorrow * Last dose was Saturday 06/30 * ASA 81 mg PO daily Thank you for including us in the care of this patient. Please refer to Dr. Santiago's addendum for further recommendations. We will follow along with you. 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 Discussed with GEETA Buitrago and agree with findings and plan as documented in the note. Any exceptions or clarifications are listed here: This patient is a 78-year-old male with a history of CAD status post multiple stents and CABG, DM 2 on long-term insulin, hearing loss, HTN, dyslipidemia, history of PE/DVT, carotid artery stenosis, here status post left TKA. He is doing very well postoperatively. Denies chest pain or shortness of breath. History reviewed as above ROS as above Vitals reviewed Gen: AAOx3, NAD HEENT: anicteric sclerae, EOMI, hearing aids in place CV: Regular rhythm, bradycardia, 2/6 systolic ejection murmur at the left sternal border, nl S1S2 Pulm: CTAB no wcr Abd: +BS soft NT ND no masses or hernias Ext: Trace edema right leg, left lower extremity wrapped in Daniel wrap not removed Skin: no rashes, warm/dry Neuro: Able to plantar dorsiflex left foot This patient is a 78-year-old male with a history of CAD status post multiple stents and CABG, DM 2 on long-term insulin, hearing loss, HTN, dyslipidemia, history of PE/DVT, carotid artery stenosis, here status post left TKA -Eliquis 2.5 mg p.o. twice daily to start tomorrow for DVT prophylaxis which is his normal maintenance dose -Pain control but will discontinue Toradol as he has chronic kidney disease and should not be on any NSAIDs -CKD stage III-renally dose medications, avoid nephrotoxins, hold Avapro and Lasix as above until after checking renal function in the morning -Follow postop CBC -Monitor for evidence of perioperative cardiovascular event given extensive vascular disease -I canceled the pharmacy glycemic consult-this is not necessary as he is well controlled. Glucose starting to trend upward likely due to dexamethasone given preoperatively-I will order Lantus starting tonight at a slightly lower dose from home dose until I see what his requirements will be in the hospital-we will start Lantus 25 units tonight and reassess in the morning, continue sliding scale insulin as ordered Documented By: Evita Santiago
[2018-07-03] MEDS ORDERED: MoRPHine SULFATE 4 MG/ML 1 ML CARP\\VIAL IV PRN (12:00)
--- NOTE | 2018-07-03 12:05 | Anesthesiology Progress Note ---
Anesthesia Post Op Note Date & Time Jul 03, 2018 at 12:05 Vital Signs Pain Intensity: 0 Vital Signs Past 12 Hours Date Time Temp Pulse Resp B/P (MAP) Pulse Ox O2 Delivery O2 Flow Rate FiO2 07/03/18 11:47 36.5 56 18 143/74 (97) 98 Nasal Cannula 2.0 07/03/18 11:46 Nasal Cannula 2.0 07/03/18 11:13 58 16 07/03/18 11:13 58 16 85 07/03/18 11:11 157/63 07/03/18 11:08 59 15 07/03/18 11:08 60 15 99 07/03/18 11:06 135/66 07/03/18 11:03 60 16 07/03/18 11:03 59 16 96 07/03/18 11:01 148/72 07/03/18 10:58 56 19 92 07/03/18 10:58 56 19 07/03/18 10:56 148/61 07/03/18 10:53 57 14 07/03/18 10:53 56 14 97 07/03/18 10:52 149/66 18 10:48 56 17 07/03/18 10:48 56 17 94 18 10:48 36.7 61 16 149/66 (95) 97 Nasal Cannula 2 07/03/18 10:47 60 16 95 07/03/18 10:47 59 16 18 10:46 153/66 18 10:42 63 19 18 10:42 60 19 97 07/03/18 10:41 140/76 07/03/18 10:37 54 15 95 07/03/18 10:37 52 15 18 10:36 148/66 18 10:32 58 12 18 10:32 59 12 144/58 98 07/03/18 10:27 56 17 18 10:27 55 17 99 18 10:26 153/66 2/18 10:22 56 16 2/18 10:22 56 16 98 2/18 10:21 152/66 18 10:19 55 16 98 2/18 10:19 56 16 18 10:16 144/63 07/03/18 10:14 59 16 07/03/18 10:14 58 16 95 07/03/18 10:11 144/62 07/03/18 10:09 59 19 97 07/03/18 10:09 59 19 07/03/18 10:06 131/63 07/03/18 10:05 121/61 07/03/18 10:04 59 17 07/03/18 10:04 36.4 57 20 121/61 (80) 93 Oxymask 10 07/03/18 10:04 57 17 87 07/03/18 07:05 36.8 54 20 137/66 95 Room Air Notes Mental Status: alert / awake / arousable, participated in evaluation Pt Amnestic to Procedure: Yes Nausea / Vomiting: adequately controlled Pain: adequately controlled Airway Patency, RR, SpO2: stable & adequate BP & HR: stable & adequate Hydration State: stable & adequate Neuraxial Anesthesia: was administered, sensory block is resolving Anesthetic Complications: no major complications apparent
[2018-07-03] MEDS: ACETAMINOPHEN 500 MG TAB PO SCH ×2 (14:00→21:31)
[2018-07-03] MEDS: CLONIDINE HCL 0.1 MG TAB PO SCH ×2 (14:25→21:28)
[2018-07-03] MEDS ORDERED: NURSING VERBAL MED ORDER ONE (14:45)
[2018-07-03] MEDS: CEFAZOLIN IV 2,000 MG in SYRINGE 0 ML IV SCH (16:16)
[2018-07-03] MEDS ORDERED: PHARMACY GLYCEMIC MGMT CONSULT PRN (16:58)
[2018-07-03] MEDS ORDERED: KETOROLAC TROMETHAMINE 15 MG/ML VIAL IV. SCH (18:00)
[2018-07-03] MEDS: FERROUS GLUCONATE 324 MG TAB PO SCH (18:59)
[2018-07-03] MEDS: INSULIN ASPART 100 UNITS/ML 3 ML PEN SC SCH ×2 (19:11→22:10)
[2018-07-03] MEDS: TRAMADOL HCL 50 MG TAB PO PRN (19:22)
[2018-07-03] MEDS ORDERED: IRBESARTAN 150 MG TAB PO SCH (21:00)
[2018-07-03] MEDS ORDERED: NIACIN 500 MG TAB IMMEDIATE RELEASE PO SCH (21:00)
[2018-07-03] MEDS ORDERED: INSULIN GLARGINE SOLOSTAR 100 UNITS/ML 3 ML PEN SC SCH (21:00)
[2018-07-03] MEDS: LABETALOL HCL 200 MG TAB PO SCH (21:00)
[2018-07-03] MEDS: SODIUM CHLORIDE 0.9% 1000ML 1,000 ML IV SCH ×2 (21:21→22:11)
[2018-07-03] MEDS: DOCUSATE SODIUM 100 MG CAP PO SCH (21:28)
[2018-07-04] MEDS: CEFAZOLIN IV 2,000 MG in SYRINGE 0 ML IV SCH (00:37)
[2018-07-04 03:50] VITALS: BP 143/67; PULSE 55; TEMP 35.8; O2SAT 93
[2018-07-04] MEDS: ACETAMINOPHEN 500 MG TAB PO SCH (05:36)
[2018-07-04] MEDS: TRAMADOL HCL 50 MG TAB PO PRN (05:39)
[2018-07-04 06:34] LABS: HEMATOCRIT 31.3 % (42-52); HEMOGLOBIN 10.2 g/dL (14.0-18.0); MEAN CELL VOLUME 93.2 fL (80-100); MEAN CORPUSCULAR HEMOGLOBIN 30.4 pg (25-34); MEAN CORPUSCULAR HGB CONC 32.6 g/dl (32-36); MEAN PLATELET VOLUME 10.3 fL (7.4-10.4); PLATELET COUNT 206 K/uL (130-400); RED CELL DISTRIBUTION WIDTH CV 13.3 % (11.5-14.5); RED CELL DISTRIBUTION WIDTH SD 45.4 fL (36.4-46.3); WHITE BLOOD COUNT 7.07 K/uL (4.8-10.8)
[2018-07-04 07:03] LABS: CALCIUM 8.4 mg/dl (8.5-10.1); CREATININE 2.45 mg/dl (0.60-1.40); POTASSIUM 4.4 mmol/L (3.5-5.1)
[2018-07-04 07:38] VITALS: BP 138/61; PULSE 54; TEMP 36.4; O2SAT 94
[2018-07-04] MEDS: DEXAMETHASONE INJ 10 MG in SYRINGE 0 ML IV SCH ×2 (07:45→08:26)
[2018-07-04] MEDS: SODIUM CHLORIDE 0.9% 1000ML 1,000 ML IV SCH (08:00)
[2018-07-04] MEDS: INSULIN ASPART 100 UNITS/ML 3 ML PEN SC SCH (08:29)
[2018-07-04] MEDS: CLONIDINE HCL 0.1 MG TAB PO SCH (08:32)
[2018-07-04] MEDS: FERROUS GLUCONATE 324 MG TAB PO SCH (08:35)
[2018-07-04] MEDS: DOCUSATE SODIUM 100 MG CAP PO SCH (08:35)
[2018-07-04] MEDS: LABETALOL HCL 200 MG TAB PO SCH (08:36)
[2018-07-04] MEDS ORDERED: ASPIRIN 81 MG ECTAB PO SCH (09:00)
[2018-07-04] MEDS ORDERED: PANTOprazole SOD 40 MG TAB PO SCH (09:00)
[2018-07-04] MEDS ORDERED: AMLODIPINE BESYLATE 5 MG TAB PO SCH (09:00)
[2018-07-04] MEDS ORDERED: MULTIVITAMIN TAB PO SCH (09:00)
[2018-07-04] MEDS ORDERED: FUROSEMIDE 20 MG TAB PO SCH (09:00)
[2018-07-04] MEDS ORDERED: MAGNESIUM OXIDE 400 MG TAB PO SCH (09:00)
[2018-07-04] MEDS ORDERED: FENOFIBRATE 145 MG TAB PO SCH (09:00)
--- NOTE | 2018-07-04 09:49 | Clinical Documentation Query ---
CLINICAL DOCUMENTATION QUERY 78-y/o male who has undergone left TKR. POD #1 PRP shows BUN 40, Creatinine 2.45, GFR 24.6. Creatinine taken in month of May averaged 1.9. In your clinical opinion is this patient being managed for: ( x ) SAMANTHA-patient was discharged prior to me seeing him so I cannot document this diagnosis and bill for it ( ) Not Agree ( ) Other explanation of clinical findings (No explanation is considered a No Response) ( ) Unable to determine ( ) Need to Discuss (Phone CDS or qliq) (No discussion is considered a No Response) The medical record reflects the following clinical findings, treatment, and risk factors. Clinical Indicators: As above. Treatment: internal medicine consult, daily PRP's Risk Factors: Age, Surgical loss, Please clarify and document your clinical opinion in the progress notes and discharge summary. Terms such as "probable", "suspected", "likely", "questionable", "possible", or "still to be ruled out" are acceptable. IF IN AGREEMENT, YOU MUST DOCUMENT ABOVE DIAGNOSTIC STATEMENT IN DAILY PROGRESS NOTES AND DISCHARGE SUMMARY. This document is not part of the patient's record. Thank You, Yevgeniy Woods RN [phone] & via [email or web address]
--- NOTE | 2018-07-04 10:33 | Orthopedic Progress Note ---
Orthopedic Progress Note Date of Service Jul 04, 2018. Subjective Post OP Day: 1 Reports: feeling well, pain controlled w PO medications (Using Ultram because he doesn't do well with opioids.), Denies: complaints, chest pain, SOB, nausea / vomiting, light headedness, calf pain Objective calves soft nontender, N/V intact, capillary refill less than 2 sec., dressing C /D/I, A&O x3, toes mobile, hemovac drainage (~250 cc) Date Time Temp Pulse Resp B/P (MAP) Pulse Ox O2 Delivery O2 Flow Rate FiO2 07/04/18 07:38 36.4 54 16 138/61 (86) 94 Room Air 07/04/18 03:50 35.8 55 16 143/67 (92) 93 Room Air 07/04/18 00:20 Room Air 07/03/18 23:36 35.6 59 18 127/66 (86) 92 Room Air 07/03/18 21:00 48 148/76 (100) 07/03/18 20:00 36.4 54 18 143/56 (85) 97 Room Air 07/03/18 15:35 Room Air 07/03/18 14:58 54 18 144/59 (87) 92 07/03/18 13:30 54 18 124/74 (91) 96 07/03/18 12:30 61 18 121/64 (83) 95 07/03/18 12:00 54 18 134/69 (90) 98 07/03/18 11:47 36.5 56 18 143/74 (97) 98 Nasal Cannula 2.0 07/03/18 11:46 Nasal Cannula 2.0 07/03/18 11:30 Nasal Cannula 2.0 07/03/18 11:13 58 16 07/03/18 11:13 58 16 85 07/03/18 11:11 157/63 07/03/18 11:08 59 15 07/03/18 11:08 60 15 99 07/03/18 11:06 135/66 07/03/18 11:03 60 16 07/03/18 11:03 59 16 96 07/03/18 11:01 148/72 07/03/18 10:58 56 19 92 07/03/18 10:58 56 19 07/03/18 10:56 148/61 07/03/18 10:53 57 14 07/03/18 10:53 56 14 97 07/03/18 10:52 149/66 07/03/18 10:48 56 17 07/03/18 10:48 56 17 94 07/03/18 10:48 36.7 61 16 149/66 (95) 97 Nasal Cannula 2 07/03/18 10:47 60 16 95 07/03/18 10:47 59 16 07/03/18 10:46 153/66 07/03/18 10:42 63 19 07/03/18 10:42 60 19 97 07/03/18 10:41 140/76 07/03/18 10:37 54 15 95 07/03/18 10:37 52 15 07/03/18 10:36 148/66 07/03/18 10:32 58 12 07/03/18 10:32 59 12 144/58 98 Laboratory Results 24 Hours: Test 07/04/18 06:04 Hematocrit 31.3 % Hemoglobin 10.2 g/dL Assessment & Plan Assessment: POD #1 s/p left TKA Plan: DVT prophylaxis--TEDs and Eliquis PT/OT--did very well today. D/C planning--home today with home health Inhouse Planning Pain Management: Ultram DVT Prophylaxis: TEDs, other (Eliquis) Discharge Planning Discharge Planning: home with home health Pain Management: Ultram DVT Prophylaxis: TEDs, other (Eliquis)
[2018-07-04] MEDS ORDERED: ACET-24 PO (10:35)
[2018-07-04] MEDS ORDERED: TRAM-10 PO (10:35)
[2018-07-04] MEDS ORDERED: ONDA-170 PO (10:35)
--- NOTE | 2018-07-04 10:37 | Discharge Instructions ---
Discharge Instructions Date of Service Jul 04, 2018. Admission Reason for Admission: Left knee osteoarthritis Discharge Discharge Diagnosis / Problem: left knee osteoarthritis Discharge Goals Goal(s): Decrease discomfort, Improve function Activity Recommendations Activity Limitations: per Instructions/Follow-up section Weightbearing Status: Left weightbearing (as tolerated) . Instructions / Follow-Up Instructions / Follow-Up ACTIVITY RECOMMENDATIONS: SELF CARE INSTRUCTIONS AFTER TOTAL KNEE REPLACEMENT A. You may need to continue a physical therapy program after discharge from the hospital. There are several options available to you. Your doctor will assist you in selecting the best one for you. 1. An out-patient facility 3 times a week for therapy. 2. Home therapy for 1 to 2 weeks with outpatient therapy to follow. 3. Continue working on all exercises taught by physical therapy three times a day for 20 minutes on non-therapy days. Your goals should be to increase the bending of your knee to 90 degrees and beyond and to fully straighten your knee. Ice and elevate knee after exercise. B. Weight as tolerated with a walker or as instructed by your physician. C. It is okay to shower if minimal to no drainage from incision. No Baths. Do not soak wound. D. Make walking a part of your daily routine. Be up as much as comfortable with rest periods throughout the day. Rest with leg elevation is very important. Use the ice wrap frequently for the first 3-4 weeks. E. There are no restrictions on activities. You may ride in a car, shop, participate in toe trimmer and all social activities. F. Wear the long elastic stockings (GEO hose) 20 hours a day for one month after surgery. They can be removed several times a day for laundering and when showering. G. Silverlon- This is a large adhesive bandage that contains silver ions. This helps your incision heal by fighting off bacteria and protecting it from the outside environment. You are permitted to shower with this dressing. This will remain on your incision for 7 days and then should be removed. Some visible blood or drainage through the dressing window is normal. If there is significant drainage or leaking noted before the 7 days notify your doctor's office immediately. Once removed, keep incision clean and dry. If there is any drainage or redness noted, please call your surgeon. SPECIAL CARE INSTRUCTIONS: VERY IMPORTANT TO READ AND REVIEW A. Take Eliquis (blood thinning medications) as directed by your doctor. If on Coumadin, have a pro-time (blood test) drawn according to your doctor's instructions. This will tell the doctor how well the Coumadin is thinning your blood. B. There are a few signs you need to watch for after you are home. Call [facility] if you notice any of the followin. Increased severe knee pain. Some pain is expected especially when you exercise. 2. Increased swelling in your leg or knee; pain or swelling of the calf muscle in either lower leg. 3. Any redness or fluid drainage from the incision. 4. Shortness of breath or chest pain. 5. A Temperature of 101 degrees F or greater. C. Please call [facility] at if you have any concerns or questions about your operation or recovery. The doctor or his nurse will return your call promptly. D. You must take antibiotics before dental work, bladder, bowel or other surgery. Your doctor will provide you with a permanent care to carry describing this precaution. FOLLOW UP VISIT: If appointment is not already scheduled: Please call [facility] to make a follow-up appointment for 2 weeks after your surgery at . Current Hospital Diet Patient's current hospital diet: Diabetes Type 2 Diet Discharge Diet Recommended Diet: Diabetes Type 2 Diet Procedures Procedures Performed: Left Total Knee Arthroplasty Cemented Pending Studies Studies pending at discharge: no Laboratory Results Hemoglobin A1c Test 05/28/18 14:25 Range/Units Estimated Average Glucose 151 mg/dl Hemoglobin A1c 6.9 H 4.5-5.6 % Lipid Panel Test 05/09/18 08:05 Range/Units Triglycerides Level 145 0-150 mg/dl Cholesterol Level 166 0-200 mg/dl HDL Cholesterol 37 mg/dl Cholesterol/HDL Ratio 4.5 LDL Cholesterol, Calculated 100 mg/dl Medical Emergencies . Who to Call and When: Medical Emergencies: If at any time you feel your situation is an emergency, please call 911 immediately. . Non-Emergent Contact Non-Emergency issues call your: Surgeon Call Non-Emergent contact if: temperature is above 101, your pain is not controlled, your pain is worsening . "Provider Documentation" section prepared by Moe Bhardwaj. .
[2018-07-04 12:07] VITALS: BP 138/61; PULSE 54; TEMP 36.4; O2SAT 94
--- NOTE | 2018-07-04 13:19 | Anesthesiology Progress Note ---
Anesthesia Post Op Note Date & Time Jul 04, 2018 at 13:19 Vital Signs Pain Intensity: 5.0 Vital Signs Past 12 Hours Date Time Temp Pulse Resp B/P (MAP) Pulse Ox O2 Delivery O2 Flow Rate FiO2 07/04/18 12:07 36.4 54 16 94 Room Air 07/04/18 07:38 36.4 54 16 138/61 (86) 94 Room Air 07/04/18 03:50 35.8 55 16 143/67 (92) 93 Room Air Notes Mental Status: alert / awake / arousable, participated in evaluation Pt Amnestic to Procedure: Yes Nausea / Vomiting: adequately controlled Pain: adequately controlled Airway Patency, RR, SpO2: stable & adequate BP & HR: stable & adequate Hydration State: stable & adequate Anesthetic Complications: no major complications apparent
[2018-07-04] MEDS ORDERED: APIXABAN 2.5 MG TAB PO SCH (15:00)
--- NOTE | 2018-07-04 15:57 | Progress Note ---
Progress Note Date of Service Jul 04, 2018. Progress Note Pt discharged before I saw him. 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 BPs have been acceptable. I asked my Nurse Navigator to call him and ask him to hold off on taking his lasix and Avapro until a repeat BMP can be done through his PCP early next week. She will also get him a close PCP appointment as well.
== END 2018-07-04 13:45 | disposition home health service (06) | DRG 470 ==
LOC: C.ACU 06:17 → C.3E 08:00 → ENRESERV 10:41
PROC: 0SRD0J9 Replacement of Left Knee Joint with Synthetic Substitute, Cemented, Open Approach (ICD-10-PCS; principal; 2018-07-03 08:15)
DX: M17.12 Unilateral primary osteoarthritis, left knee (principal); E11.51 Type 2 diabetes mellitus with diabetic peripheral angiopathy without gangrene; I13.10 Hypertensive heart and chronic kidney disease without heart failure, with stage 1 through stage 4 chronic kidney disease, or unspecified chronic kidney disease; N18.3 Chronic kidney disease, stage 3 (moderate); I25.10 Atherosclerotic heart disease of native coronary artery without angina pectoris; I25.2 Old myocardial infarction; K21.9 Gastro-esophageal reflux disease without esophagitis; E78.5 Hyperlipidemia, unspecified; Z79.899 Other long term (current) drug therapy; Z79.4 Long term (current) use of insulin; Z79.01 Long term (current) use of anticoagulants; Z79.82 Long term (current) use of aspirin; Z95.1 Presence of aortocoronary bypass graft; Z86.711 Personal history of pulmonary embolism; Z86.718 Personal history of other venous thrombosis and embolism; Z85.51 Personal history of malignant neoplasm of bladder; Z85.46 Personal history of malignant neoplasm of prostate; Z85.820 Personal history of malignant melanoma of skin; Z87.891 Personal history of nicotine dependence; Z82.49 Family history of ischemic heart disease and other diseases of the circulatory system

== ENCOUNTER 2019-12-09 09:45 | Inpatient (IN) ==
[2019-12-09] MEDS ORDERED: MAGNESIUM SULFATE / D5W 1 GM/100 ML BAG IV ONE (10:00)
[2019-12-09] MEDS ORDERED: FUROSEMIDE 40 MG/4 ML VIAL IV STA (10:00)
[2019-12-09] MEDS ORDERED: methylPREDNISolone 125 MG/2 ML VIAL IV STA (10:02)
[2019-12-09] MEDS ORDERED: LEVALBUTEROL HCL 1.25 MG/3 ML NEB NEB STA (10:02)
[2019-12-09] MEDS ORDERED: NITROGLYCERIN 2% OINTMENT 30GM TUBE EXT STA (10:03)
[2019-12-09] MEDS ORDERED: NITROGLYCERIN 2% OINTMENT 30GM TUBE ONE (10:06)
[2019-12-09 10:09] LABS: Basophils # (auto) 0.01 K/uL (0-0.2); Basophils % (auto) 0.1 %; Hematocrit (blood only) 30.9 % (42-52); Hemoglobin 9.5 g/dL (14.0-18.0); Immature Granulocytes # (auto) 0.18 K/uL (0.00-0.02); Immature Granulocytes % (auto) 1.2 %; Lymphocytes # (auto) 0.71 K/uL (1.2-3.4); Lymphocytes % (auto) 4.8 %; Mean Corpuscular Hemoglobin 29.1 pg (25-34); Mean Corpuscular Hgb Conc 30.7 g/dL (32-36); Mean Corpuscular Volume 94.5 fL (80-100); Mean Platelet Volume 9.8 fL (7.4-10.4); Monocytes # (auto) 0.32 K/uL (0.11-0.59); Monocytes % (auto) 2.2 %; Neutrophils # (auto) 13.57 K/uL (1.4-6.5); Neutrophils % (auto) 91.7 %; Nucleated RBC # (auto) 0.12 K/uL (0-0); Nucleated RBC % (auto) 0.8 %; Platelet Count 279 K/uL (130-400); RDW Coefficient of Variation 19.1 % (11.5-14.5); RDW Standard Deviation 64.5 fL (36.4-46.3); Red Blood Count 3.27 M/uL (4.7-6.1); White Blood Count 14.79 K/uL (4.8-10.8)
--- NOTE | 2019-12-09 10:18 | XRay Report ---
XR chest 1V portable CLINICAL HISTORY: SEPSIS COMPARISON STUDY: Chest CT November 29, 2019. FINDINGS: Median sternotomy wires are noted. Moderate cardiomegaly is unchanged. There is no pneumoth orax. There are possible small bilateral pleural effusions. There is diffuse interstitial thickening with bilateral airspace opacities, greater within the left lung. These have progressed since CT of 2018. Multiple skeletal metastases are better depicted on prior chest CT. IMPRESSION: 1. Progression of interstitial thickening and bilateral airspace opacities, greater within the left l jesus, since prior CT. The findings may reflect pneumonia or asymmetric pulmonary edema. 2. Extensive skeletal metastases, better depicted on prior chest CT. 3. Suspected small bilateral pleural effusions. ACT 112: Negative or not required by law. Electronically signed by: Arron Greco M.D. 12/09/2019 10:17 AM
[2019-12-09 10:23] LABS: INR 1.2 (0.9-1.1); Partial Thromboplastin Ratio 0.8; Partial Thromboplastin Time 21.6 Seconds (21.0-31.0); Prothrombin Time 12.5 Seconds (9.0-12.0)
[2019-12-09] MEDS ORDERED: PIPERACILL/TAZOBAC CONSULT ACTIVE PRN (10:24)
[2019-12-09] MEDS ORDERED: LEVOFLOXACIN/D5W 750 MG/150 ML BAG IV STA (10:24)
[2019-12-09] MEDS ORDERED: PIPERACILLIN/TAZOBACTAM 4.5 GM/120 ML BAG IV ONE (10:24)
[2019-12-09] MEDS ORDERED: VANCOMYCIN HCL 1,000 MG/270 ML BAG IV STA (10:24)
[2019-12-09] MEDS ORDERED: VANCOMYCIN CONSULT ACTIVE PRN (10:24)
[2019-12-09] MEDS ORDERED: SODIUM CHLORIDE 0.9% 1000ML 1,000 ML IV ONE (10:26)
[2019-12-09 10:30] LABS: Base Excess ABG -3.6 mEq/L (-9-1.8); HCO3 ABG 21 mmol/L (19-24); PCO2 ABG 33 mmHg (35-46); PO2 ABG 144 mm/Hg (80-95); pH ABG 7.41 (7.35-7.45)
[2019-12-09 10:34] LABS: Albumin Level 2.8 gm/dl (3.4-5.0); BUN Creatinine Ratio 18.8 (10-20); Calcium 7.9 mg/dl (8.5-10.1); Creatinine Clr Calc Pharmacy 37.4 ml/min; Est GFR (African American) 32.5; Magnesium 2.2 mg/dl (1.8-2.4); Potassium 5.5 mmol/L (3.5-5.1)
[2019-12-09 10:37] LABS: iSTAT Hemoglobin 8.2 g/dl (14.0-18.0); iSTAT Ionized Calcium 1.09 mmol/l (1.12-1.32); iSTAT Potassium 5.6 mEq/L (3.3-5.0)
[2019-12-09 10:41] LABS: Appearance Urine Clear (Clear); Bacteria Urine Automated Negative (Negative); Bilirubin Urine Negative (Negative); Blood Urine Negative (Negative); Color Urine Yellow; Epithelial Cell Urine Auto >30 /lpf (0-5); Glucose Urine UA Negative (Negative); Ketones Urine Negative (Negative); Leukocyte Esterase Urine Negative (Negative); Nitrite Urine Negative (Negative); Protein Urine Trace (Negative); RBC Urine Automated 0-4 /hpf (0-4); Specific Gravity Urine 1.016 (1.000-1.030); Urobilinogen Urine Negative (Negative)
[2019-12-09 10:46] LABS: Albumin Globulin Ratio 0.8 (0.9-2); Bilirubin,Total 0.6 mg/dl (0.2-1); Creatine Kinase MB 9.3 ng/ml (0.5-3.6); Globulin 3.5 gm/dl (2.5-4.0); Total Protein 6.3 gm/dl (6.4-8.2); Troponin I 2.6 ng/ml (0-0.045)
[2019-12-09] MEDS ORDERED: METOPROLOL TARTRATE 1 MG/ML VIAL IV PRN (10:46)
[2019-12-09] MEDS ORDERED: Heparin IV Standard *NO* Bolus IV ONE (10:49)
[2019-12-09] MEDS ORDERED: HEPARIN SODIUM/DEXTROSE 25,000 UNITS/500 ML BAG IV SCH (11:00)
[2019-12-09 11:14] LABS: Allen Test Pos (Pos)
[2019-12-09 11:39] LABS: Partial Thromboplastin Ratio 0.9; Partial Thromboplastin Time 23.7 Seconds (21.0-31.0)
--- NOTE | 2019-12-09 11:47 | CT Scan Report ---
CT chest wo con CLINICAL HISTORY: Respiratory failure COMPARISON STUDY: 11/29/2019 CT DOSE: 1130.13 mGy.cm TECHNIQUE: CT of the thorax was performed from the thoracic inlet to the lung bases. Images are revi ewed in the axial, sagittal, and coronal planes. IV contrast was not administered for this examinatio n. A dose lowering technique was utilized adhering to the principles of ALARA. FINDINGS: Thyroid: Imaged portions of the thyroid gland are normal in appearance. Thoracic aorta: The thoracic aorta is normal in course and caliber, noting standard 3 vessel arch camila roby. Heart: The heart is borderline enlarged. There are coronary artery calcifications. Lungs and pleural spaces: There are persistent small bilateral pleural effusions. There is underlying interstitial lung disease. There are progressive bilateral multilobar groundglass opacities. Diagnos tic considerations include a multifocal pneumonitis versus an atypical appearance of pulmonary edema. Mediastinum: There are mildly enlarged mediastinal lymph nodes, similar to the preceding study. Zarina: Borderline enlarged hilar lymph nodes are suspected. Evaluation is difficult given the lack of intravenous contrast Axilla: There is no evidence of pathologic axillary lymphadenopathy Upper abdomen: Partially visualized upper abdominal viscera is within normal limits. Skeletal structures: There is evidence for extensive skeletal metastasis. IMPRESSION: 1. Diffuse skeletal metastasis 2. Small bilateral pleural effusions 3. Mild mediastinal and hilar lymphadenopathy 4. Progressive bilateral groundglass pulmonary opacities. Diagnostic considerations include a multifo hermila infectious/inflammatory pneumonitis versus an atypical appearance of pulmonary edema. A multifoca l pneumonitis is favored. Clinical and radiographic follow-up is recommended ACT 112: Negative or not required by law. Electronically signed by: Reji Grimm M.D. 12/09/2019 11:45 AM
--- NOTE | 2019-12-09 11:54 | History & Physical Report ---
Date of Service December 09, 2019 Assessment & Plan (1) Acute respiratory failure with hypoxia: Admit to ICU for critical care Vital signs per critical care Continue vancomycin and Zosyn that was started in the ER Blood culture and sputum cultures pending Continue duo nebs every 4 hours Continue Solu-Medrol 40 mg IV twice daily and taper down DVT prophylaxis patient is on heparin drip that was started in the ER for the A. fib's Hold apixaban Full code Present on Admission?: Yes (2) Pneumonia: As the above (3) Anemia: Anemia of chronic disease due to metastatic prostate cancer to the bones. Stable H&H Continue monitoring Present on Admission?: Yes (4) Prostate cancer metastatic to bone: Continue following up with oncology. Present on Admission?: Yes (5) COPD (chronic obstructive pulmonary disease) case management patient: As the above Present on Admission?: Yes (6) Chronic kidney disease (CKD) stage G3b/A1, moderately decreased glomerular filtration rate (GFR) between 30-44 mL/min/1.73 square meter and albuminuria creatinine ratio less than 30 mg/g: Avoid nephrotoxic agents Patient baseline CKD stage III appears to be worsening. Creatinine increased from 1.68->2.19, GFR 38.6-->2.19 Present on Admission?: Yes (7) Obstructive sleep apnea: Continue CPAP or BiPAP for acute respiratory failure and as night as needed. Present on Admission?: Yes (8) Coronary artery disease: (9) Hypercholesteremia: (10) Hypertension: Continue monitoring. As per ICU team (11) Atrial fibrillation: Started heparin drip by the ER physician for new onset of A. fib's Started diltiazem drip with bolus for paroxysmal new onset of A. fib's with RVR Continue monitoring TTE pending Present on Admission?: Yes (12) Sepsis: Repeat lactic acid Continue antibiotics and follow with blood and sputum cultures cultures Present on Admission?: Yes History of Present Illness Chief Complaint: Severe shortness of breath Primary Care Provider: Mary Rojo MD Patient is a 79 years old male with past medical history of metastatic prostate cancer to bones on chemotherapy, hypertension, hypercholesterolemia, diabetes mellitus type 2, coronary artery disease, bladder cancer, CKD stage III, COPD, who presents to the emergency room in acute respiratory failure and severe shortness of breath. Patient was treated for pneumonitis approximately week ago. On the EKG patient patient has new onset of atrial fibrillation with rapid ventricular response at rate of 151. Patient denies fever, chills, abdominal pain, frequency, urgency, syncope, near syncope. Labs are reviewed which shows sodium 137, potassium 5.5, chloride 107, BUN 41, creatinine 2.19 which is elevated from patient baseline 1.68 in November 2019, GFR of 28, lactate 2.3, magnesium 2.2, AST 25, ALT 24, troponin 2.6, BNP 4978. Urine all negative except for trace proteins. ABG 7.41, PCO2 33, PO2 144, bicarb 21. Influenza A&B pending. CT scan of the chest shows diffuse skeletal metastasis, small bilateral pleural effusion, mild mediastinal and hilar lymphadenopathy, progressive bilateral groundglass pulmonary opacities. Diagnostic considerations include a multifocal infectious inflammatory pneumonitis versus an atypical appearances of pulmonary edema. A multifocal pneumonitis is favored. The case was discussed with ICU and decision was made to admit patient to ICU for critical care. Allergies Allergy/AdvReac Type Severity Reaction Status Date / Time No Known Drug Allergies Allergy Unknown Unknown Verified 11/29/19 00:59 Home Medications Home Medications Medication Instructions Recorded Confirmed Type clonidine HCl 0.3 mg tablet 0.3 mg PO TID #90 tab 07/30/19 12/09/19 Rx fenofibrate micronized 67 mg 67 mg PO DAILY #90 cap 08/05/19 12/09/19 Rx capsule pantoprazole 40 mg tablet,delayed 40 mg PO DAILY #90 tab 08/05/19 12/09/19 Rx release amlodipine 10 mg tablet 10 mg PO DAILY #30 tab 08/28/19 12/09/19 History apixaban 2.5 mg tablet 2.5 mg PO BID tab 08/28/19 12/09/19 History cholecalciferol (vitamin D3) 25 1,000 units PO DAILY cap 08/28/19 12/09/19 History mcg (1,000 unit) capsule coenzyme Q10 100 mg capsule 100 mg PO DAILY cap 08/28/19 12/09/19 History evolocumab 140 mg/mL subcutaneous 140 mg SQ DIRECTED ml 08/28/19 12/09/19 History pen injector labetalol 300 mg tablet 300 mg PO BID #180 tab 08/28/19 12/09/19 History magnesium 250 mg tablet 250 mg PO BID tab 08/28/19 12/09/19 History niacin 500 mg tablet 500 mg PO TID tab 08/28/19 12/09/19 History omega-3 acid ethyl esters 1 gram 1 cap PO DAILY cap 08/28/19 12/09/19 History capsule furosemide 40 mg tablet 40 mg PO DAILY #90 tab 09/18/19 12/09/19 Rx insulin glargine 100 unit/mL 36 units SUBCUT DIRECTED ml 09/21/19 12/09/19 History subcutaneous solution insulin lispro 100 unit/mL 10 - 16 units SUBCUT DIRECTED 09/21/19 12/09/19 History subcutaneous pen ml gabapentin 300 mg capsule 300 mg PO TID #90 cap 10/19/19 12/09/19 Rx oxycodone 5 mg tablet 5 mg PO QID PRN 10 Days #40 tab 10/26/19 12/09/19 Rx bicalutamide 50 mg tablet 50 mg PO DAILY #30 tab 11/02/19 12/09/19 Rx tramadol 50 mg tablet 100 mg PO Q4H PRN #360 tab 11/05/19 12/09/19 Rx leuprolide 7.5 mg intramuscular 7.5 mg IM ONCE #1 ea 11/19/19 12/09/19 Rx syringe kit glucos sul [id number]-Mn 1 cap PO BID 11/29/19 12/09/19 History ondansetron HCl 8 mg PO UD PRN 11/29/19 12/09/19 History prochlorperazine maleate 10 mg PO UD PRN 11/29/19 12/09/19 History prednisone 10 mg PO UD 21 Days #100 tab 12/02/19 12/09/19 Rx folic acid 20 mg PO DAILY 12/09/19 12/09/19 History Past Med/Surg History Medical History Chronic kidney disease (CKD) stage G3b/A1, moderately decreased glomerular filtration rate (GFR) between 30-44 mL/min/1.73 square meter and albuminuria creatinine ratio less than 30 mg/g (Chronic) Coronary artery disease (Chronic) Degenerative arthritis of left knee (Chronic) Diabetes (Chronic) Hypercholesteremia (Chronic) Hypertension (Chronic) Obstructive sleep apnea (Chronic) Surgical History History of heart surgery History of hemorrhoidectomy History of knee replacement History of repair of rotator cuff S/P CABG (coronary artery bypass graft) (Resolved) Family History Mother Cardiac disorder Father Cardiac disorder Myocardial infarction Sister Cardiac disorder Brother Cardiac disorder Social History Preferred Language: Micronesian Communication Ability: Effective Visual Impairment: No Limitations Hearing Ability: Use of Hearing Aid 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 Beliefs That Will Affect Care: None marital status: Current Living Situation: Spouse current occupational status: retired Other Information That Helps Us Care for You: No Feels Safe at Home: Yes Safety Concerns: Feels Safe At This Time Smoking Status: Never smoker Tobacco Type: cigarettes ; Age Started Using Tobacco: 22 ; Age Quit Using Tobacco: 27 ; Hx Alcohol Use: No Hx Substance Use: No Childhood Exposure to Second-Hand Smoke: Yes Dental Care, Regularly: No Physical Activity Frequency: Does not Exercise Seatbelt Use: sometimes Sunscreen Use: No Review of Systems Review of Systems: All systems reviewed & are unremarkable except as noted in HPI & below Physical Exam Constitutional: WD/WN, vitals as above well developed and + morbidly obese Eyes: PERRL, conjunctivae normal, anicteric sclerae ENMT: external ear and nose normal, oropharynx normal Neck: trachea midline, no thyromegaly Respiratory: + respiratory distress and + labored breathing Auscultation: + crackles and + wheezes Cardiovascular: Rate/Rhythm: + irregularly irregular Heart Sounds: normal S1 and normal S2 Gastrointestinal (Abdomen): normal bowel sounds, soft, nontender, no hepatosplenomegaly Musculoskeletal: no cyanosis or clubbing, extremities motor strength 5/5 Skin: no rashes, warm and dry Neurologic: patellar DTR's 2+ bilat, sensation intact Lymphatic: no cervical or axillary lymphadenopathy Results & Data Vital Signs (Past 12 Hours) Vital Signs Temp Pulse Pulse Resp BP BP Pulse Ox 12/09/19 11:42 133 H 36 H 170/109 H 90 12/09/19 11:15 127 H 143/80 H 93 12/09/19 11:00 120 H 28 H 127/76 92 12/09/19 10:53 121 H 125/101 H 12/09/19 10:45 122 H 125/101 H 91 12/09/19 10:30 140 H 128/92 92 12/09/19 10:16 141 H 112/77 99 12/09/19 10:15 129 H 100 12/09/19 10:13 129 H 129 H 25 H 97 12/09/19 10:08 141 H 25 H 100 12/09/19 10:01 121 H 128/60 92 12/09/19 10:00 133 H 93 12/09/19 09:55 126 H 91 12/09/19 09:50 152 H 152 H 30 H 126/60 89 L 12/09/19 09:46 36.9 C 144 H 42 H 133/71 77 L Code Status & VTE Plan Code Status Full code VTE Prophylaxis Plan VTE Prophylaxis will be ordered: Yes PG Care Time/CCT Total # of Minutes Spent Total Time Spent with Patient: Total time spent is greater than 50% in coordination of care (as documented) at patient's floor/unit and/or counseling patient: (1) Anemia Anemia type: unspecified type Qualified Code(s): D64.9 - Anemia, unspecified
[2019-12-09] MEDS: dilTIAZem HCL 125 MG in DEXTROSE 5% 100 ML IV SCH ×2 (13:06→20:40)
[2019-12-09] MEDS ORDERED: PROCHLORPERAZINE MALEATE 10 MG TAB PO PRN (13:49)
[2019-12-09] MEDS ORDERED: GLUCOSE 40% GEL 15 GM TUBE PO PRN (13:49)
[2019-12-09] MEDS ORDERED: ACETAMINOPHEN 325 MG TAB PO PRN (13:49)
[2019-12-09] MEDS ORDERED: DEXTROSE 50% 50 ML SYRINGE IV PRN (13:49)
[2019-12-09] MEDS ORDERED: POLYETHYLENE (MIRALAX) 17 GM PACK PO PRN (13:49)
[2019-12-09] MEDS ORDERED: GLUCAGON FOR INJ 1 MG VIAL SQ PRN (13:49)
[2019-12-09] MEDS ORDERED: EVOLOCUMAB 140 MG SQ SCH (13:49)
[2019-12-09] MEDS ORDERED: CARBOHYDRATES FOR HYPOGLYCEMIA PO PRN (13:49)
[2019-12-09] MEDS ORDERED: TRAMADOL HCL 50 MG TABLET PO PRN (13:49)
[2019-12-09] MEDS ORDERED: ONDANSETRON 8 MG TABLET PO PRN (13:49)
[2019-12-09] MEDS ORDERED: MAGNESIUM HYDROXIDE SUSP 30 ML UDC PO PRN (13:49)
[2019-12-09] MEDS ORDERED: LANTUS PER UNIT CHARGE SQ SCH (13:49)
[2019-12-09] MEDS ORDERED: GLUCOSE 10 TABS/TUBE PO PRN (13:49)
[2019-12-09] MEDS ORDERED: NIACIN 500 MG TAB PO SCH (14:00)
[2019-12-09] MEDS ORDERED: PHARMACY GLYCEMIC MGMT CONSULT PRN (14:11)
--- NOTE | 2019-12-09 14:24 | Emergency Department Note ---
Entered by Albert Magana acting as a scribe for Jacobo Buenrostro MD History of Present Illness General Chief complaint: Shortness of Breath/Dyspnea Stated complaint: SOB Time Seen by Provider: 12/09/19 09:59 Source: patient History of Present Illness Provider complaint: Shortness of breath Location: chest Severity: similar to prior episodes Pain Consistency: + other (Worsening) Relieved By: + none Associated symptoms: + other (LE swelling) The patient is a 79 year old male who presents to the Emergency Room with complaints of worsening shortness of breath that has been going on for some time but became acute worse today. The patient states he feels as though he is full of fluids even with taking his Lasix appropriately. He relates that his lower extremities have increased swelling to where it was difficult for him to put his shoes on. The patient adds that while en route he ran out of oxygen so he was placed on 4L NC upon arrival. The patient has a history of prostate cancer with mets to the bone and notes he recently had a chemo treatment. The patient is also on Eliquis and has not missed any doses. Home Medications Home Medications Medication Instructions Recorded Confirmed Type clonidine HCl 0.3 mg tablet 0.3 mg PO TID #90 tab 07/30/19 12/09/19 Rx fenofibrate micronized 67 mg 67 mg PO DAILY #90 cap 08/05/19 12/09/19 Rx capsule pantoprazole 40 mg tablet,delayed 40 mg PO DAILY #90 tab 08/05/19 12/09/19 Rx release amlodipine 10 mg tablet 10 mg PO DAILY #30 tab 08/28/19 12/09/19 History apixaban 2.5 mg tablet 2.5 mg PO BID tab 08/28/19 12/09/19 History cholecalciferol (vitamin D3) 25 1,000 units PO DAILY cap 08/28/19 12/09/19 History mcg (1,000 unit) capsule coenzyme Q10 100 mg capsule 100 mg PO DAILY cap 08/28/19 12/09/19 History evolocumab 140 mg/mL subcutaneous 140 mg SQ DIRECTED ml 08/28/19 12/09/19 History pen injector labetalol 300 mg tablet 300 mg PO BID #180 tab 08/28/19 12/09/19 History magnesium 250 mg tablet 250 mg PO BID tab 08/28/19 12/09/19 History niacin 500 mg tablet 500 mg PO TID tab 08/28/19 12/09/19 History omega-3 acid ethyl esters 1 gram 1 cap PO DAILY cap 08/28/19 12/09/19 History capsule furosemide 40 mg tablet 40 mg PO DAILY #90 tab 09/18/19 12/09/19 Rx insulin glargine 100 unit/mL 36 units SUBCUT DIRECTED ml 09/21/19 12/09/19 History subcutaneous solution insulin lispro 100 unit/mL 10 - 16 units SUBCUT DIRECTED 09/21/19 12/09/19 History subcutaneous pen ml gabapentin 300 mg capsule 300 mg PO TID #90 cap 10/19/19 12/09/19 Rx oxycodone 5 mg tablet 5 mg PO QID PRN 10 Days #40 tab 10/26/19 12/09/19 Rx bicalutamide 50 mg tablet 50 mg PO DAILY #30 tab 11/02/19 12/09/19 Rx tramadol 50 mg tablet 100 mg PO Q4H PRN #360 tab 11/05/19 12/09/19 Rx leuprolide 7.5 mg intramuscular 7.5 mg IM ONCE #1 ea 11/19/19 12/09/19 Rx syringe kit glucos sul [id number] 1 cap PO BID 11/29/19 12/09/19 History ondansetron HCl 8 mg PO UD PRN 11/29/19 12/09/19 History prochlorperazine maleate 10 mg PO UD PRN 11/29/19 12/09/19 History prednisone 10 mg PO UD 21 Days #100 tab 12/02/19 12/09/19 Rx folic acid 20 mg PO DAILY 12/09/19 12/09/19 History Allergies Allergy/AdvReac Type Severity Reaction Status Date / Time No Known Drug Allergies Allergy Unknown Unknown Verified 11/29/19 00:59 Past Med/Surg History Medical History (Updated 12/10/19 @ 10:53 by Jacobo Buenrostro MD) Acute hypoxemic respiratory failure Acute kidney injury (Acute) Aortic stenosis Atrial fibrillation with rapid ventricular response Chronic kidney disease (CKD) stage G3b/A1, moderately decreased glomerular filtration rate (GFR) between 30-44 mL/min/1.73 square meter and albuminuria creatinine ratio less than 30 mg/g (Chronic) Coronary artery disease (Chronic) Degenerative arthritis of left knee (Chronic) Diabetes (Chronic) Hypercholesteremia (Chronic) Hyperkalemia Hyperkalemia (Acute) Hypertension (Chronic) Obstructive sleep apnea (Chronic) Surgical History History of heart surgery History of hemorrhoidectomy History of knee replacement History of repair of rotator cuff S/P CABG (coronary artery bypass graft) (Resolved) Family History Mother Cardiac disorder Father Cardiac disorder Myocardial infarction Sister Cardiac disorder Brother Cardiac disorder Social History Preferred Language: Serbian Communication Ability: Effective Visual Impairment: No Limitations Hearing Ability: Use of Hearing Aid Weather Observer Required: No Beliefs That Will Affect Care: None marital status: Current Living Situation: Spouse current occupational status: retired Feels Safe at Home: Yes Smoking Status: Never smoker Tobacco Type: cigarettes ; Age Started Using Tobacco: 22 ; Age Quit Using Tobacco: 27 ; Hx Alcohol Use: No Hx Substance Use: No Childhood Exposure to Second-Hand Smoke: Yes Dental Care, Regularly: No Physical Activity Frequency: Does not Exercise Seatbelt Use: sometimes Sunscreen Use: No Review of Systems See HPI for pertinent positives & negatives. and A total of 10 systems reviewed and were otherwise negative Physical Exam Vital Signs Vital Signs - 24 hr 12/09/19 10:53 12/09/19 11:00 12/09/19 11:15 Pulse Rate 121 H 120 H 127 H Pulse Rate from SpO2 Sensor 131 H 133 H Respiratory Rate 28 H Blood Pressure 125/101 H 127/76 143/80 H Blood Pressure Mean 88 100 Pulse Oximetry 92 93 Oxygen Delivery Method BiPAP BiPAP 12/09/19 11:42 12/09/19 11:46 Pulse Rate 133 H 124 H Pulse Rate from SpO2 Sensor 136 H 122 H Respiratory Rate 36 H Blood Pressure 170/109 H 145/92 H Blood Pressure Mean 130 104 Pulse Oximetry 90 89 L Oxygen Delivery Method BiPAP BiPAP GENERAL: Awake, alert, ill-appearing, in acute distress HENT: Normocephalic, atraumatic. Oropharynx unremarkable. EYES: Normal conjunctiva. Sclera non-icteric. NECK: Supple. No nuchal rigidity. FROM. No masses. RESPIRATORY: Bilateral wheezing present. No rales. Normal respiratory effort. CARDIAC: Normal rate. Normal rhythm. No murmurs. No rubs. Extremities warm and well perfused. Pulses equal. No JVD. GI: Soft, non-distended. No tenderness to palpation. No rebound or guarding. No masses. RECTAL: Deferred. MUSCULOSKELETAL: Atraumatic. Chest examination reveals no tenderness. The back is symmetrical on inspection without obvious abnormality. There is no CVA tenderness to palpation. No joint edema. LOWER EXTREMITIES: Calves are equal size bilaterally and non-tender. No edema. No discoloration. NEURO: Normal sensorium. No sensory or motor deficits noted. Course Course 0956: Past medical records reviewed. The patient was evaluated in room B01, and a complete history and physical examination were performed. 1037: I reevaluated the patient and he has slightly improved on BiPAP. 1051: I spoke to Dr. Mary Strange [facility] Hospital[facility] about the patient's case. She agreed to accept the patient but would like me to contact ICU. 1054: I discussed the patient's case with Dr. Edilma Ruiz who agreed with the Lopressor to try to bring his heart rate down. He believes that the elevated troponin is due to demand ischemia. 1057: I spoke to Dr. Linda Strange Pulmonology about the patient's case. He is very familiar with the patient. He asked me to repeat the CT without contrast. 1121: I reevaluated the patient and he is resting in bed. I updated him with the treatment plan and he agreed. Consultations Consultation #1: I spoke to Dr. Mary Strange [facility] Hospitalist about the patient's case. She agreed to accept the patient but would like me to contact ICU. Time: 10:51 Consultation #2: I discussed the patient's case with Dr. Edilma Ruiz who agreed with the Lopressor to try to bring his heart rate down. He believes that the elevated troponin is due to demand ischemia. Time: 10:54 Consultation #3: I spoke to Dr. Linda Strange Pulmonology about the patient's case. He is very familiar with the patient. He asked me to repeat the CT without contrast. Time: 10:57 Administered Medications Albuterol (Duoneb) 3 ml NEB Q4R UMU Stop: 01/08/20 14:59 Last Admin: 12/10/19 07:04 Dose: 3 ml Documented by: [id number] Admin: 12/10/19 03:00 Dose: 3 ml Documented by: [id number] Admin: 12/09/19 23:02 Dose: 3 ml Documented by: [id number] Admin: 12/09/19 18:47 Dose: 3 ml Documented by: [id number] Admin: 12/09/19 15:15 Dose: 3 ml Documented by: [id number] Fish Oil ([place]-3 (Purified Fish Oil)) 1 gm PO DAILY UMU Stop: 01/09/20 08:59 Last Admin: 12/10/19 09:48 Dose: 1 gm Documented by: [id number] Gabapentin (Neurontin) 300 mg PO TID [facility] Stop: 01/08/20 13:59 Last Admin: 12/10/19 09:48 Dose: 300 mg Documented by: [id number] Admin: 12/09/19 20:39 Dose: 300 mg Documented by: [id number] Admin: 12/09/19 15:52 Dose: 300 mg Documented by: [id number] Diltiazem HCl 125 mg/ Dextrose 125 mls @ 15 mls/hr IV .Q8H20M UMU; Protocol Stop: 01/08/20 12:29 Last Titration: 12/10/19 07:15 Dose: 15 mg/hr, 15 mls/hr Documented by: [id number] Cosigned by: [id number] Admin: 12/10/19 05:29 Dose: 15 mg/hr, 15 mls/hr Documented by: [id number] Cosigned by: [id number] Titration: 12/10/19 05:00 Dose: 15 mg/hr, 15 mls/hr Documented by: [id number] Cosigned by: [id number] Titration: 12/10/19 03:45 Dose: 15 mg/hr, 15 mls/hr Documented by: [id number] Cosigned by: [id number] Admin: 12/09/19 20:40 Dose: 15 mg/hr, 15 mls/hr Documented by: [id number] Cosigned by: [id number] Titration: 12/09/19 20:40 Dose: 15 mg/hr, 15 mls/hr Documented by: [id number] Cosigned by: [id number] Titration: 12/09/19 19:22 Dose: 15 mg/hr, 15 mls/hr Documented by: [id number] Cosigned by: [id number] Titration: 12/09/19 13:38 Dose: 15 mg/hr, 15 mls/hr Documented by: [id number] Cosigned by: [id number] Admin: 12/09/19 13:06 Dose: 10 mg/hr, 10 mls/hr Documented by: [id number] Cosigned by: [id number] Furosemide 40 mg/ Syringe 4 mls @ 4 mls/min IV BID UMU Stop: 01/08/20 20:59 Last Admin: 12/10/19 08:24 Dose: 4 mls/min Documented by: [id number] Admin: 12/09/19 20:30 Dose: 4 mls/min Documented by: [id number] Methylprednisolone 40 mg/ (Syringe) 0.64 mls @ 1.5 mls/min IV TID UMU Stop: 01/08/20 20:59 Last Admin: 12/10/19 08:24 Dose: 1.5 mls/min Documented by: [id number] Admin: 12/09/19 20:31 Dose: 1.5 mls/min Documented by: [id number] Insulin Aspart (Novolog Flexpen) 0 units SC Q4 UMU Stop: 01/08/20 15:59 Last Admin: 12/10/19 08:24 Dose: 2 units Documented by: [id number] Cosigned by: [id number] Admin: 12/10/19 04:36 Dose: 1 units Documented by: [id number] Cosigned by: [id number] Admin: 12/09/19 23:33 Dose: 3 units Documented by: [id number] Cosigned by: [id number] Admin: 12/09/19 20:29 Dose: 5 units Documented by: [id number] Cosigned by: [id number] Admin: 12/09/19 16:29 Dose: 9 units Documented by: [id number] Cosigned by: [id number] Insulin Glargine (Lantus Solostar Pen) 0 units SC BID@0800,2000 UMU; Protocol Stop: 01/08/20 19:59 Last Admin: 12/10/19 08:25 Dose: 20 units Documented by: [id number] Cosigned by: [id number] Admin: 12/09/19 20:28 Dose: 30 units Documented by: [id number] Cosigned by: [id number] Magnesium Oxide (Mag-Ox) 400 mg PO BID UMU Stop: 01/08/20 20:59 Last Admin: 12/10/19 09:48 Dose: 400 mg Documented by: [id number] Admin: 12/09/19 20:40 Dose: 400 mg Documented by: [id number] Miscellaneous (Order Awaiting Action) 1 ea N/A QS UMU Stop: 01/08/20 15:59 Last Admin: 12/10/19 08:25 Dose: Not Given Documented by: [id number] Admin: 12/09/19 23:07 Dose: Not Given Documented by: [id number] Admin: 12/09/19 16:06 Dose: Not Given Documented by: [id number] Pantoprazole Sodium (Protonix) 40 mg PO DAILY UMU Stop: 01/09/20 08:59 Last Admin: 12/10/19 09:48 Dose: 40 mg Documented by: [id number] Vitamin D (Vitamin D3) 1,000 units PO DAILY UMU Stop: 01/09/20 08:59 Last Admin: 12/10/19 09:48 Dose: 1,000 units Documented by: [id number] Discontinued Medications Furosemide (Lasix) 40 mg IV NOW STA Stop: 12/09/19 10:01 Last Admin: 12/09/19 10:04 Dose: 40 mg Documented by: [id number] Heparin Sodium/Dextrose () 1 ea IV ONE ONE; Protocol Stop: 12/09/19 10:50 Last Admin: 12/09/19 17:35 Dose: Not Given Documented by: [id number] Magnesium Sulfate/Dextrose (Magnesium Sulfate / D5w) 1 gm in 100 mls @ 100 mls/hr IV ONE ONE Stop: 12/09/19 10:59 Last Infusion: 12/09/19 11:10 Dose: 0 mls/hr Documented by: [id number] Admin: 12/09/19 10:04 Dose: 100 mls/hr Documented by: [id number] Piperacillin Sod/Tazobactam Sod (Zosyn) 4.5 gm in 120 mls @ 240 mls/hr IV NOW O NE Stop: 12/09/19 10:53 Last Infusion: 12/09/19 11:11 Dose: 0 mls/hr Documented by: [id number] Admin: 12/09/19 10:32 Dose: 240 mls/hr Documented by: [id number] Levofloxacin/Dextrose (Levaquin/D5w) 750 mg in 150 mls @ 100 mls/hr IV NOW STA Stop: 12/09/19 11:53 Last Infusion: 12/09/19 12:27 Dose: 0 mls/hr Documented by: [id number] Admin: 12/09/19 10:37 Dose: 100 mls/hr Documented by: [id number] Vancomycin HCl (Vancomycin Hcl) 1,000 mg in 270 mls @ 125 mls/hr IV NOW STA Stop: 12/09/19 12:33 Last Infusion: 12/09/19 13:20 Dose: 0 mls/hr Documented by: [id number] Admin: 12/09/19 11:10 Dose: 125 mls/hr Documented by: [id number] Sodium Chloride (Nss 1000ml) 1,000 mls @ 999 mls/hr IV .Q1H1M ONE Stop: 12/09/19 11:26 Last Infusion: 12/09/19 11:40 Dose: 0 mls/hr Documented by: [id number] Admin: 12/09/19 10:32 Dose: 999 mls/hr Documented by: [id number] Insulin Glargine (Lantus Solostar Pen) 25 units SC ONE ONE Stop: 12/09/19 16:01 Last Admin: 12/09/19 16:00 Dose: 25 units Documented by: [id number] Cosigned by: [id number] Levalbuterol HCl (Xopenex 1.25mg/3ml Neb) 1.25 mg NEB NOW STA Stop: 12/09/19 10:03 Last Admin: 12/09/19 10:13 Dose: 1.25 mg Documented by: [id number] Methylprednisolone (Solumedrol) 60 mg IV NOW STA Stop: 12/09/19 10:03 Last Admin: 12/09/19 10:07 Dose: 60 mg Documented by: [id number] Metoprolol Tartrate (Lopressor) 5 mg IV Q5M PRN PRN Reason: Tachycardia Stop: 01/08/20 10:45 Last Admin: 12/09/19 10:53 Dose: 5 mg Documented by: [id number] Metoprolol Tartrate (Lopressor) 2.5 mg IV NOW STA Stop: 12/09/19 20:18 Last Admin: 12/09/19 20:25 Dose: 2.5 mg Documented by: [id number] Metoprolol Tartrate (Lopressor) 5 mg IV NOW STA Stop: 12/09/19 23:43 Last Admin: 12/09/19 23:46 Dose: 5 mg Documented by: [id number] Metoprolol Tartrate (Lopressor) 5 mg IV NOW STA Stop: 12/10/19 04:59 Last Admin: 12/10/19 05:30 Dose: 5 mg Documented by: [id number] Niacin (Niacin) 500 mg PO TID [facility] Stop: 01/08/20 13:59 Last Admin: 12/09/19 17:35 Dose: Not Given Documented by: [id number] Nitroglycerin (Nitro-Bid 2%) 1 inch EXT NOW STA Stop: 12/09/19 10:04 Last Admin: 12/09/19 10:08 Dose: 1 inch Documented by: [id number] Nitroglycerin (Nitro-Bid 2%) Confirm Administered Dose 18 inch .ROUTE .STK-MED ONE Stop: 12/09/19 10:07 Last Admin: 12/09/19 10:09 Dose: Not Given Documented by: [id number] Critical Care Time I have personally spent greater than 90 minutes of critical care time in the direct management of this patient. This includes bedside care, interpretation of diagnostic studies, and testing, discussion with consultants, patient, and family members, and other required patient management activities. This 90 minutes is in excess of all separately billable procedures. Medical Decision Making Differential Diagnosis Differential: Infectious, Reactive Airway Disease, Pneumonia, Pneumothorax, COPD, CHF, ACS, Pulmonary Embolism, MSK, GI, Dissection, amongst other etiologies entertained. Medical Records Attestation: I reviewed the patient's medical records. Home Medications Current Medication List: was personally reviewed by me Laboratory Data Attestation: I reviewed the patient's lab results. Result diagrams: 12/10/19 04:44 12/10/19 04:44 Lab Results 12/09/19 12/09/19 12/09/19 Range/Units 09:57 09:57 09:57 WBC 14.79 H (4.8-10.8) K/uL RBC 3.27 L (4.7-6.1) M/uL Hgb 9.5 L (14.0-18.0) g/dL POC Hgb (14.0-18.0) g/dl Hct 30.9 L (42-52) % POC Hct (42-52) % MCV 94.5 (80-100) fL MCH 29.1 (25-34) pg MCHC 30.7 L (32-36) g/dL RDW Std Deviation 64.5 H (36.4-46.3) fL RDW Coeff of Jose Luis 19.1 H (11.5-14.5) % Plt Count 279 (130-400) K/uL MPV 9.8 (7.4-10.4) fL Immature Gran % (Auto) 1.2 % Neut % (Auto) 91.7 % Lymph % (Auto) 4.8 % Trego % (Auto) 2.2 % Eos % (Auto) 0.0 % Baso % (Auto) 0.1 % Immature Gran # (Auto) 0.18 H (0.00-0.02) K/uL Neut # (Auto) 13.57 H (1.4-6.5) K/uL Lymph # (Auto) 0.71 L (1.2-3.4) K/uL Trego # (Auto) 0.32 (0.11-0.59) K/uL Eos # (Auto) 0.00 (0-0.5) K/uL Baso # (Auto) 0.01 (0-0.2) K/uL Absolute Nucleated RBC 0.12 H (0-0) K/uL Nucleated RBC % (auto) 0.8 % PT 12.5 H (9.0-12.0) Seconds INR 1.2 H (0.9-1.1) APTT 21.6 (21.0-31.0) Seconds PTT Ratio 0.8 ABG pH (7.35-7.45) ABG pCO2 (35-46) mmHg ABG pO2 (80-95) mm/Hg ABG HCO3 (19-24) mmol/L ABG O2 Saturation (90-95) % ABG Base Excess (-9-1.8) mEq/L Beau Test (Pos) Barometric Pressure mm/Hg Oxygen Given POC Sodium (135-144) mEq/L Sodium 137 (136-145) mmol/L POC Potassium (3.3-5.0) mEq/L Potassium 5.5 H (3.5-5.1) mmol/L POC Chloride (101-112) mEq/L Chloride 107 (98-107) mmol/L Carbon Dioxide 21 (21-32) mmol/L POC Total CO2 (24-31) mEq/l Anion Gap 9.0 (3-11) POC Anion Gap (16-25) mmol/L POC BUN (7-18) mg/dl BUN 41 H (7-18) mg/dl Creatinine 2.19 H (0.6-1.4) mg/dl POC Creatinine (0.6-1.3) mg/dl Est Cr Clr Drug Dosing 37.4 ml/min Est GFR ( Amer) 32.5 Est GFR (Non-Af Amer) 28.0 BUN/Creatinine Ratio 18.8 (10-20) Glucose 257 H (70-99) mg/dl POC Glucose (other) (70-99) mg/dl Lactate (0.4-2.0) mmol/L Calcium 7.9 L (8.5-10.1) mg/dl POC Ioniz Calcium Luisa (1.12-1.32) mmol/l Magnesium 2.2 (1.8-2.4) mg/dl Total Bilirubin 0.6 (0.2-1) mg/dl AST 25 (15-37) U/L ALT 24 (12-78) U/L Alkaline Phosphatase 507 H (45-117) U/L Total Creatine Kinase 152 (39-308) U/L CK-MB (CK-2) 9.3 H (0.5-3.6) ng/ml CK/CKMB % Calc 6.1 H (0-3.0) Troponin I 2.600 H* (0-0.045) ng/ml NT-Pro-B Natriuret Pep (0-1800) pg/ml Total Protein 6.3 L (6.4-8.2) gm/dl Albumin 2.8 L (3.4-5.0) gm/dl Globulin 3.5 (2.5-4.0) gm/dl Albumin/Globulin Ratio 0.8 L (0.9-2) Urine Color Urine Appearance (Clear) Urine pH (4.5-7.5) Ur Specific Tiline (1.000-1.030) Urine Protein (Negative) Urine Glucose (UA) (Negative) Urine Ketones (Negative) Urine Blood (Negative) Urine Nitrite (Negative) Urine Bilirubin (Negative) Urine Urobilinogen (Negative) Ur Leukocyte Esterase (Negative) Urine WBC (Auto) (0-5) /hpf Urine RBC (Auto) (0-4) /hpf U Hyaline Cast (Auto) (0-5) /lpf U Epithel Cells (Auto) (0-5) /lpf Urine Bacteria (Auto) (Negative) Blood Type Antibody Screen 12/09/19 12/09/19 12/09/19 Range/Units 10:18 10:18 10:18 WBC (4.8-10.8) K/uL RBC (4.7-6.1) M/uL Hgb (14.0-18.0) g/dL POC Hgb 8.2 L (14.0-18.0) g/dl Hct (42-52) % POC Hct 24 L (42-52) % MCV (80-100) fL MCH (25-34) pg MCHC (32-36) g/dL RDW Std Deviation (36.4-46.3) fL RDW Coeff of Jose Luis (11.5-14.5) % Plt Count (130-400) K/uL MPV (7.4-10.4) fL Immature Gran % (Auto) % Neut % (Auto) % Lymph % (Auto) % Trego % (Auto) % Eos % (Auto) % Baso % (Auto) % Immature Gran # (Auto) (0.00-0.02) K/uL Neut # (Auto) (1.4-6.5) K/uL Lymph # (Auto) (1.2-3.4) K/uL Trego # (Auto) (0.11-0.59) K/uL Eos # (Auto) (0-0.5) K/uL Baso # (Auto) (0-0.2) K/uL Absolute Nucleated RBC (0-0) K/uL Nucleated RBC % (auto) % PT (9.0-12.0) Seconds INR (0.9-1.1) APTT (21.0-31.0) Seconds PTT Ratio ABG pH 7.41 (7.35-7.45) ABG pCO2 33 L (35-46) mmHg ABG pO2 144 H (80-95) mm/Hg ABG HCO3 21 (19-24) mmol/L ABG O2 Saturation 99.0 H (90-95) % ABG Base Excess -3.6 (-9-1.8) mEq/L Beau Test Pos (Pos) Barometric Pressure 731.2 mm/Hg Oxygen Given 50% POC Sodium 133 L (135-144) mEq/L Sodium (136-145) mmol/L POC Potassium 5.6 H (3.3-5.0) mEq/L Potassium (3.5-5.1) mmol/L POC Chloride 106 (101-112) mEq/L Chloride (98-107) mmol/L Carbon Dioxide (21-32) mmol/L POC Total CO2 21 L (24-31) mEq/l Anion Gap (3-11) POC Anion Gap 12.0 L (16-25) mmol/L POC BUN 38 H (7-18) mg/dl BUN (7-18) mg/dl Creatinine (0.6-1.4) mg/dl POC Creatinine 2.0 H (0.6-1.3) mg/dl Est Cr Clr Drug Dosing ml/min Est GFR ( Amer) Est GFR (Non-Af Amer) BUN/Creatinine Ratio (10-20) Glucose (70-99) mg/dl POC Glucose (other) 287 H (70-99) mg/dl Lactate 2.3 H* (0.4-2.0) mmol/L Calcium (8.5-10.1) mg/dl POC Ioniz Calcium Luisa 1.09 L (1.12-1.32) mmol/l Magnesium (1.8-2.4) mg/dl Total Bilirubin (0.2-1) mg/dl AST (15-37) U/L ALT (12-78) U/L Alkaline Phosphatase (45-117) U/L Total Creatine Kinase (39-308) U/L CK-MB (CK-2) (0.5-3.6) ng/ml CK/CKMB % Calc (0-3.0) Troponin I (0-0.045) ng/ml NT-Pro-B Natriuret Pep (0-1800) pg/ml Total Protein (6.4-8.2) gm/dl Albumin (3.4-5.0) gm/dl Globulin (2.5-4.0) gm/dl Albumin/Globulin Ratio (0.9-2) Urine Color Urine Appearance (Clear) Urine pH (4.5-7.5) Ur Specific Tiline (1.000-1.030) Urine Protein (Negative) Urine Glucose (UA) (Negative) Urine Ketones (Negative) Urine Blood (Negative) Urine Nitrite (Negative) Urine Bilirubin (Negative) Urine Urobilinogen (Negative) Ur Leukocyte Esterase (Negative) Urine WBC (Auto) (0-5) /hpf Urine RBC (Auto) (0-4) /hpf U Hyaline Cast (Auto) (0-5) /lpf U Epithel Cells (Auto) (0-5) /lpf Urine Bacteria (Auto) (Negative) Blood Type Antibody Screen 12/09/19 12/09/19 12/09/19 Range/Units 10:23 10:34 10:34 WBC (4.8-10.8) K/uL RBC (4.7-6.1) M/uL Hgb (14.0-18.0) g/dL POC Hgb (14.0-18.0) g/dl Hct (42-52) % POC Hct (42-52) % MCV (80-100) fL MCH (25-34) pg MCHC (32-36) g/dL RDW Std Deviation (36.4-46.3) fL RDW Coeff of Jose Luis (11.5-14.5) % Plt Count (130-400) K/uL MPV (7.4-10.4) fL Immature Gran % (Auto) % Neut % (Auto) % Lymph % (Auto) % Trego % (Auto) % Eos % (Auto) % Baso % (Auto) % Immature Gran # (Auto) (0.00-0.02) K/uL Neut # (Auto) (1.4-6.5) K/uL Lymph # (Auto) (1.2-3.4) K/uL Trego # (Auto) (0.11-0.59) K/uL Eos # (Auto) (0-0.5) K/uL Baso # (Auto) (0-0.2) K/uL Absolute Nucleated RBC (0-0) K/uL Nucleated RBC % (auto) % PT (9.0-12.0) Seconds INR (0.9-1.1) APTT (21.0-31.0) Seconds PTT Ratio ABG pH (7.35-7.45) ABG pCO2 (35-46) mmHg ABG pO2 (80-95) mm/Hg ABG HCO3 (19-24) mmol/L ABG O2 Saturation (90-95) % ABG Base Excess (-9-1.8) mEq/L Beau Test (Pos) Barometric Pressure mm/Hg Oxygen Given POC Sodium (135-144) mEq/L Sodium (136-145) mmol/L POC Potassium (3.3-5.0) mEq/L Potassium (3.5-5.1) mmol/L POC Chloride (101-112) mEq/L Chloride (98-107) mmol/L Carbon Dioxide (21-32) mmol/L POC Total CO2 (24-31) mEq/l Anion Gap (3-11) POC Anion Gap (16-25) mmol/L POC BUN (7-18) mg/dl BUN (7-18) mg/dl Creatinine (0.6-1.4) mg/dl POC Creatinine (0.6-1.3) mg/dl Est Cr Clr Drug Dosing ml/min Est GFR ( Amer) Est GFR (Non-Af Amer) BUN/Creatinine Ratio (10-20) Glucose (70-99) mg/dl POC Glucose (other) (70-99) mg/dl Lactate (0.4-2.0) mmol/L Calcium (8.5-10.1) mg/dl POC Ioniz Calcium Luisa (1.12-1.32) mmol/l Magnesium (1.8-2.4) mg/dl Total Bilirubin (0.2-1) mg/dl AST (15-37) U/L ALT (12-78) U/L Alkaline Phosphatase (45-117) U/L Total Creatine Kinase (39-308) U/L CK-MB (CK-2) (0.5-3.6) ng/ml CK/CKMB % Calc (0-3.0) Troponin I (0-0.045) ng/ml NT-Pro-B Natriuret Pep 4978 H (0-1800) pg/ml Total Protein (6.4-8.2) gm/dl Albumin (3.4-5.0) gm/dl Globulin (2.5-4.0) gm/dl Albumin/Globulin Ratio (0.9-2) Urine Color Yellow Urine Appearance Clear (Clear) Urine pH 5.0 (4.5-7.5) Ur Specific Tiline 1.016 (1.000-1.030) Urine Protein Trace H (Negative) Urine Glucose (UA) Negative (Negative) Urine Ketones Negative (Negative) Urine Blood Negative (Negative) Urine Nitrite Negative (Negative) Urine Bilirubin Negative (Negative) Urine Urobilinogen Negative (Negative) Ur Leukocyte Esterase Negative (Negative) Urine WBC (Auto) 1-5 (0-5) /hpf Urine RBC (Auto) 0-4 (0-4) /hpf U Hyaline Cast (Auto) 5-10 H (0-5) /lpf U Epithel Cells (Auto) >30 H (0-5) /lpf Urine Bacteria (Auto) Negative (Negative) Blood Type A Positive Antibody Screen NEGATIVE 12/09/19 Range/Units 11:12 WBC (4.8-10.8) K/uL RBC (4.7-6.1) M/uL Hgb (14.0-18.0) g/dL POC Hgb (14.0-18.0) g/dl Hct (42-52) % POC Hct (42-52) % MCV (80-100) fL MCH (25-34) pg MCHC (32-36) g/dL RDW Std Deviation (36.4-46.3) fL RDW Coeff of Jose Luis (11.5-14.5) % Plt Count (130-400) K/uL MPV (7.4-10.4) fL Immature Gran % (Auto) % Neut % (Auto) % Lymph % (Auto) % Trego % (Auto) % Eos % (Auto) % Baso % (Auto) % Immature Gran # (Auto) (0.00-0.02) K/uL Neut # (Auto) (1.4-6.5) K/uL Lymph # (Auto) (1.2-3.4) K/uL Trego # (Auto) (0.11-0.59) K/uL Eos # (Auto) (0-0.5) K/uL Baso # (Auto) (0-0.2) K/uL Absolute Nucleated RBC (0-0) K/uL Nucleated RBC % (auto) % PT (9.0-12.0) Seconds INR (0.9-1.1) APTT 23.7 (21.0-31.0) Seconds PTT Ratio 0.9 ABG pH (7.35-7.45) ABG pCO2 (35-46) mmHg ABG pO2 (80-95) mm/Hg ABG HCO3 (19-24) mmol/L ABG O2 Saturation (90-95) % ABG Base Excess (-9-1.8) mEq/L Beau Test (Pos) Barometric Pressure mm/Hg Oxygen Given POC Sodium (135-144) mEq/L Sodium (136-145) mmol/L POC Potassium (3.3-5.0) mEq/L Potassium (3.5-5.1) mmol/L POC Chloride (101-112) mEq/L Chloride (98-107) mmol/L Carbon Dioxide (21-32) mmol/L POC Total CO2 (24-31) mEq/l Anion Gap (3-11) POC Anion Gap (16-25) mmol/L POC BUN (7-18) mg/dl BUN (7-18) mg/dl Creatinine (0.6-1.4) mg/dl POC Creatinine (0.6-1.3) mg/dl Est Cr Clr Drug Dosing ml/min Est GFR ( Amer) Est GFR (Non-Af Amer) BUN/Creatinine Ratio (10-20) Glucose (70-99) mg/dl POC Glucose (other) (70-99) mg/dl Lactate (0.4-2.0) mmol/L Calcium (8.5-10.1) mg/dl POC Ioniz Calcium Luisa (1.12-1.32) mmol/l Magnesium (1.8-2.4) mg/dl Total Bilirubin (0.2-1) mg/dl AST (15-37) U/L ALT (12-78) U/L Alkaline Phosphatase (45-117) U/L Total Creatine Kinase (39-308) U/L CK-MB (CK-2) (0.5-3.6) ng/ml CK/CKMB % Calc (0-3.0) Troponin I (0-0.045) ng/ml NT-Pro-B Natriuret Pep (0-1800) pg/ml Total Protein (6.4-8.2) gm/dl Albumin (3.4-5.0) gm/dl Globulin (2.5-4.0) gm/dl Albumin/Globulin Ratio (0.9-2) Urine Color Urine Appearance (Clear) Urine pH (4.5-7.5) Ur Specific Tiline (1.000-1.030) Urine Protein (Negative) Urine Glucose (UA) (Negative) Urine Ketones (Negative) Urine Blood (Negative) Urine Nitrite (Negative) Urine Bilirubin (Negative) Urine Urobilinogen (Negative) Ur Leukocyte Esterase (Negative) Urine WBC (Auto) (0-5) /hpf Urine RBC (Auto) (0-4) /hpf U Hyaline Cast (Auto) (0-5) /lpf U Epithel Cells (Auto) (0-5) /lpf Urine Bacteria (Auto) (Negative) Blood Type Antibody Screen Imaging Data Radiologist's Impression: Radiology results as stated below per my review and the radiologist's interpretation: XR chest 1V portable CLINICAL HISTORY: SEPSIS COMPARISON STUDY: Chest CT November 29, 2019. FINDINGS: Median sternotomy wires are noted. Moderate cardiomegaly is unchanged. There is no pneumothorax. There are possible small bilateral pleural effusions. There is diffuse interstitial thickening with bilateral airspace opacities, greater within the left lung. These have progressed since CT of November 29, 2019. Multiple skeletal metastases are better depicted on prior chest CT. IMPRESSION: 1. Progression of interstitial thickening and bilateral airspace opacities, g reater within the left lung, since prior CT. The findings may reflect pneumonia or asymmetric pulmonary edema. 2. Extensive skeletal metastases, better depicted on prior chest CT. 3. Suspected small bilateral pleural effusions. ACT 112: Negative or not required by law. Electronically signed by: Arron Greco M.D. 12/09/2019 10:[address] chest wo con CLINICAL HISTORY: Respiratory failure COMPARISON STUDY: 11/29/2019 CT DOSE: 1130.13 mGy.cm TECHNIQUE: CT of the thorax was performed from the thoracic inlet to the lung bases. Images are reviewed in the axial, sagittal, and coronal planes. IV contrast was not administered for this examination. A dose lowering technique was utilized adhering to the principles of ALARA. FINDINGS: Thyroid: Imaged portions of the thyroid gland are normal in appearance. Thoracic aorta: The thoracic aorta is normal in course and caliber, noting standard 3 vessel arch anatomy. Heart: The heart is borderline enlarged. There are coronary artery calcifications. Lungs and pleural spaces: There are persistent small bilateral pleural effusions. There is underlying interstitial lung disease. There are progressive bilateral multilobar groundglass opacities. Diagnostic considerations include a multifocal pneumonitis versus an atypical appearance of pulmonary edema. Mediastinum: There are mildly enlarged mediastinal lymph nodes, similar to the preceding study. Zarina: Borderline enlarged hilar lymph nodes are suspected. Evaluation is difficult given the lack of intravenous contrast Axilla: There is no evidence of pathologic axillary lymphadenopathy Upper abdomen: Partially visualized upper abdominal viscera is within normal limits. Skeletal structures: There is evidence for extensive skeletal metastasis. IMPRESSION: 1. Diffuse skeletal metastasis 2. Small bilateral pleural effusions 3. Mild mediastinal and hilar lymphadenopathy 4. Progressive bilateral groundglass pulmonary opacities. Diagnostic consi derations include a multifocal infectious/inflammatory pneumonitis versus an atypical appearance of pulmonary edema. A multifocal pneumonitis is favored. Clinical and radiographic follow-up is recommended ACT 112: Negative or not required by law. Electronically signed by: Reji Grimm M.D. 12/09/2019 11:45 AM ECG Data Attestation: I personally reviewed and interpreted this ECG as follows: Indication: + SOB/dyspnea Rate (beats per minute): 151 Rhythm: + atrial fibrillation (with RVR) ECG Intervals/blocks: + Normal QT-c (485) ECG ST segments: + ST depression (Diffusely in all leads); no ST elevation Comparison ECG Date: from (11/28/19) Change: the following changes noted (Atrial fib is new. ) Blood Pressure Blood Pressure Findings: Elevated blood pressure Blood Pressure Disposition: further management by hospitalist KATHERIN Narrative This is a 79-year-old male who presents emergency department complaining of shortness of breath. The patient is in acute distress upon arrival. He was immediately placed on BiPAP. The patient believes he is full of fluid and was given Lasix originally however his chest x-ray appears to be more consistent with pneumonia along with the elevation in the white blood cell count. In addition the patient is in a new onset atrial fibrillation and has an elevation in his troponin. For this reason I did discuss the case with Dr. France. The patient was originally given Lopressor here in the emergency department with improvement in his heart rate. He was pancultured and started on antibiotics including Zosyn Levaquin and vancomycin. I did discuss the case with the ICU attending as well as the hospitalist. Patient was sent for CAT scan of the chest Impression & Plan Acute respiratory failure with hypoxia, Pneumonia, Atrial fibrillation, Elevated troponin, Hyperkalemia, Acute kidney injury Discharge Plan Visit Data *Final* Discharge Date/Time: 12/09/19 13:02 Chief Complaint: Shortness of Breath/Dyspnea Stated Complaint: SOB ED Provider: Jacobo Buenrostro Discharge Problem: Acute respiratory failure with hypoxia, Pneumonia, Atrial fibrillation, Elevated troponin, Hyperkalemia, Acute kidney injury Patient Disposition: Admitted As Inpatient Discharge Instructions Interventions: ED Discharge Assessment Last Done: 12/09/19 13:02 Discharge Problem: Pneumonia Qualifiers: Pneumonia type: due to unspecified organism Laterality: unspecified laterality Lung location: unspecified part of lung Qualified Code(s): J18.9 - Pneumonia, unspecified organism Atrial fibrillation Qualifiers: Atrial fibrillation type: unspecified Qualified Code(s): I48.91 - Unspecified atrial fibrillation The scribe's documentation has been prepared under my direction and personally reviewed by me in its entirety. I confirm that the note above accurately reflects all work, treatment, procedures, and medical decision making performed by me.
[2019-12-09] MEDS ORDERED: OXYCODONE HCL IR 5 MG TAB (IMMEDIATE RELEASE) PO PRN (14:29)
[2019-12-09 14:48] LABS: Influenza A virus by PCR Neg for Influ A (Neg); Influenza B virus by PCR Neg for Influ B (Neg)
--- NOTE | 2019-12-09 15:11 | Cardiology Consultation ---
Date of Consultation December 09, 2019 Assessment & Plan (1) Atrial fibrillation: The patient carries a history of paroxysmal atrial fibrillation and is tolerating rate control and long-term anticoagulation without difficulty. Agree with use of intravenous diltiazem. Intravenous metoprolol tartrate can also be added to better control his ventricular response. Eliquis is currently on hold due to concerns over pulmonary hemorrhage. (2) Elevated troponin: Suspect this is from a supply demand mismatch realizing his rapid atrial fibrillation in the face of left ventricular hypertrophy. Would continue to trend his biomarkers. (3) Coronary artery disease: The patient had a 4 vessel bypass performed back in 2005. His coronary disease has been quiescent on his medical regimen since that time. (4) Hypertension: Borderline control. (5) Hypercholesteremia: The patient has been on Repatha as he is intolerant to statins. History of Present Illness Attending Physician: Enriqueta Hernandez MD History of Present Illness Mr. Ortez is a 79-year-old male admitted earlier today with acute respiratory failure requiring a BiPAP mask. The patient was noted to be in atrial fibrillation with a rapid ventricular response, and therefore, a cardiology consultation was requested. Of note, the patient typically follows with Dr. Glass in the outpatient setting. The patient's recent history began on November 29 when he was admitted with an acute pneumonitis requiring intravenous steroids. He was discharged on December 02 with a tapering dose of prednisone. However, the patient noted progressive dyspnea soon after his hospital discharge. He has not experienced any chest discomfort. He further denies syncope, presyncope, PND, orthopnea, palpitations, and claudication. He has been noticing some lower extremity edema since hospital discharge. The patient carries a history of metastatic prostate carcinoma. He is currently taking Lupron and completed a month of Casodex. He did receive 1 dose of Docetaxel, however, that was discontinued as his a potential cause of pneumonitis. The patient has a longstanding history of coronary artery disease. He had a total of 5 stents placed leading up to a four-vessel bypass surgery which was performed in 2005. This included TRAN to the LAD, an SVG to the PDA, an SVG to an OM branch, and an SVG to the ramus intermedius. The patient has not experienced angina pectoris since his bypass surgery. The patient does carry history of paroxysmal atrial fibrillation. He is maintained on renally adjusted Eliquis due to his atrial dysrhythmia, but also a history of her current DVTs. Currently, patient is resting comfortably in bed with his and daughter at the bedside. Past medical and surgical history 1. Coronary artery disease-see above 2. CABG x4-2006 3. Hypertension 4. Hypercholesterolemia 5. Paroxysmal atrial fibrillation 6. LVH 7. Chronic renal failure 8. Diabetes mellitus 9. Obstructive sleep apnea 10. 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 Metastatic prostate carcinoma 13. 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 Allergies Allergy/AdvReac Type Severity Reaction Status Date / Time No Known Drug Allergies Allergy Unknown Unknown Verified 11/29/19 00:59 Home Medications Home Medications Medication Instructions Recorded Confirmed Type clonidine HCl 0.3 mg tablet 0.3 mg PO TID #90 tab 07/30/19 12/09/19 Rx fenofibrate micronized 67 mg 67 mg PO DAILY #90 cap 08/05/19 12/09/19 Rx capsule pantoprazole 40 mg tablet,delayed 40 mg PO DAILY #90 tab 08/05/19 12/09/19 Rx release amlodipine 10 mg tablet 10 mg PO DAILY #30 tab 08/28/19 12/09/19 History apixaban 2.5 mg tablet 2.5 mg PO BID tab 08/28/19 12/09/19 History cholecalciferol (vitamin D3) 25 1,000 units PO DAILY cap 08/28/19 12/09/19 History mcg (1,000 unit) capsule coenzyme Q10 100 mg capsule 100 mg PO DAILY cap 08/28/19 12/09/19 History evolocumab 140 mg/mL subcutaneous 140 mg SQ DIRECTED ml 08/28/19 12/09/19 History pen injector labetalol 300 mg tablet 300 mg PO BID #180 tab 08/28/19 12/09/19 History magnesium 250 mg tablet 250 mg PO BID tab 08/28/19 12/09/19 History niacin 500 mg tablet 500 mg PO TID tab 08/28/19 12/09/19 History omega-3 acid ethyl esters 1 gram 1 cap PO DAILY cap 08/28/19 12/09/19 History capsule furosemide 40 mg tablet 40 mg PO DAILY #90 tab 09/18/19 12/09/19 Rx insulin glargine 100 unit/mL 36 units SUBCUT DIRECTED ml 09/21/19 12/09/19 History subcutaneous solution insulin lispro 100 unit/mL 10 - 16 units SUBCUT DIRECTED 09/21/19 12/09/19 History subcutaneous pen ml gabapentin 300 mg capsule 300 mg PO TID #90 cap 10/19/19 12/09/19 Rx oxycodone 5 mg tablet 5 mg PO QID PRN 10 Days #40 tab 10/26/19 12/09/19 Rx bicalutamide 50 mg tablet 50 mg PO DAILY #30 tab 11/02/19 12/09/19 Rx tramadol 50 mg tablet 100 mg PO Q4H PRN #360 tab 11/05/19 12/09/19 Rx leuprolide 7.5 mg intramuscular 7.5 mg IM ONCE #1 ea 11/19/19 12/09/19 Rx syringe kit glucos sul [id number] 1 cap PO BID 11/29/19 12/09/19 History ondansetron HCl 8 mg PO UD PRN 11/29/19 12/09/19 History prochlorperazine maleate 10 mg PO UD PRN 11/29/19 12/09/19 History prednisone 10 mg PO UD 21 Days #100 tab 12/02/19 12/09/19 Rx folic acid 20 mg PO DAILY 12/09/19 12/09/19 History Patient History Medical History Chronic kidney disease (CKD) stage G3b/A1, moderately decreased glomerular filtration rate (GFR) between 30-44 mL/min/1.73 square meter and albuminuria creatinine ratio less than 30 mg/g (Chronic) Coronary artery disease (Chronic) Degenerative arthritis of left knee (Chronic) Diabetes (Chronic) Hypercholesteremia (Chronic) Hypertension (Chronic) Obstructive sleep apnea (Chronic) Surgical History History of heart surgery History of hemorrhoidectomy History of knee replacement History of repair of rotator cuff S/P CABG (coronary artery bypass graft) (Resolved) Family History Mother Cardiac disorder Father Cardiac disorder Myocardial infarction Sister Cardiac disorder Brother Cardiac disorder Social History Preferred Language: Vincentian Communication Ability: Effective Visual Impairment: No Limitations Hearing Ability: Use of Hearing Aid Golf Caddy Required: No Beliefs That Will Affect Care: None marital status: Current Living Situation: Spouse current occupational status: retired Feels Safe at Home: Yes Smoking Status: Never smoker Tobacco Type: cigarettes ; Age Started Using Tobacco: 22 ; Age Quit Using Tobacco: 27 ; Hx Alcohol Use: No Hx Substance Use: No Childhood Exposure to Second-Hand Smoke: Yes Dental Care, Regularly: No Physical Activity Frequency: Does not Exercise Seatbelt Use: sometimes Sunscreen Use: No Physical Exam Physical Exam: In general this is an obese white male in no acute distress. HEENT exam notes a BiPAP mask in place. Neck is supple with full carotid upstrokes. There are no obvious carotid bruits. Jugular venous pressure is difficult to assess. There is no thyromegaly. Well-healed scar seen left neck. Cardiovascular exam reveals an irregularly regular rhythm with distant heart sounds. No obvious murmurs. Lungs are clear without rales, rhonchi, or wheezes. Abdomen is soft and nontender without bruits. Extremities reveal intact radial artery and posterior tibial pulses bilaterally. There is 1+ pretibial edema. Results & Data Vital Signs (Past 12 Hours) Vital Signs Temp Pulse Pulse Resp BP BP Pulse Ox 12/09/19 13:20 133 H 40 H 95 12/09/19 13:01 134 H 152/113 H 93 12/09/19 12:45 133 H 144/88 H 95 12/09/19 12:31 142 H 145/100 H 93 12/09/19 12:16 123 H 119/80 94 12/09/19 12:10 124 H 30 H 94 12/09/19 12:00 135 H 139/80 89 L 12/09/19 11:46 124 H 145/92 H 89 L 12/09/19 11:42 133 H 36 H 170/109 H 90 12/09/19 11:15 127 H 143/80 H 93 12/09/19 11:00 120 H 28 H 127/76 92 12/09/19 10:53 121 H 125/101 H 12/09/19 10:45 122 H 125/101 H 91 12/09/19 10:30 140 H 128/92 92 12/09/19 10:16 141 H 112/77 99 12/09/19 10:15 129 H 100 12/09/19 10:13 129 H 129 H 25 H 97 12/09/19 10:08 141 H 25 H 100 12/09/19 10:01 121 H 128/60 92 12/09/19 10:00 133 H 93 12/09/19 09:55 126 H 91 12/09/19 09:50 152 H 152 H 30 H 126/60 89 L 12/09/19 09:46 36.9 C 144 H 42 H 133/71 77 L Laboratory Results CBC notes hemoglobin 9.5, hematocrit 30.9, white count 14.79, platelet count 79,000. Electrolytes notice sodium 133, potassium 5.6, chloride 106, bicarb 21, BUN 30, creatinine 2.0, and glucose of 287. Troponin I levels elevated 2.6. BNP is 4978. Diagnostic Findings EKG notes atrial fibrillation with rapid ventricular response and anterolateral ST abnormality. Chest x-ray notes pulmonary edema. Echocardiogram performed on November 29 noted normal left ventricular systolic function with an ejection fraction of 65-70% without wall motion abnormality. There is mild LVH and mild mitral regurgitation. PG Care Time/CCT Total # of Minutes Spent Total Time Spent with Patient: Total time spent is greater than 50% in coordination of care (as documented) at patient's floor/unit and/or counseling patient:
--- NOTE | 2019-12-09 15:12 | Critical Care Consultation ---
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 These are progressive compared to the most recent CT from his recent discharge. Etiology of these is broad including diffuse alveolar hemorrhage (especially in light of his Eliquis use), infectious, inflammatory and heart failure related. I have started him on 40 mg 3 times daily of IV Solu-Medrol. Ideally, we would perform a bronchoscopy to rule out diffuse alveolar hemorrhage, however, he is currently a DO NOT RESUSCITATE and DO NOT INTUBATE and I think managing conservatively at this point is reasonable. I am holding his Eliquis. We can trend his hemoglobin. Give him Lasix on a as needed basis. He does have some acute kidney injury. His procalcitonin was negative. I do not think he is infected at this time and I do not think he needs any IV antibiotics. These been discontinued. He did complete a course of antibiotics during his last admission. His troponin is elevated at this time which may be demand ischemia related to his hypoxemia. He is also in atrial fibrillation with rapid ventricular response. He is currently on a diltiazem drip which is helping his rates a bit. He does have some mild hyperkalemia. We will recheck his BMP after the Lasix that he received. He does have a Garcia catheter in place. Monitor I's and O's closely. He is also on BiPAP. We can transition him to high flow nasal cannula. Again I had a lengthy discussion with the patient, his daughter and his . They are all in agreement that the patient would like to be a DO NOT RESUSCITATE and DO NOT INTUBATE especially in light of his advanced age and metastatic prostate cancer. I have personally spent 40 minutes of critical care time in the direct management of this patient. This is a life/limb threatening event. This includes time spent evaluating patient, direct bedside care, chart review, placing orders, interpretation of diagnostic studies, discussion with consultants, patient, and family members, as well as other required patient management activities. This time is exclusive of all separately billable procedures, and teaching time and separate from and in addition to any other critical care service time. Thank you for allowing us to participate in the care of this patient. (2) Elevated troponin: (3) Atrial fibrillation with rapid ventricular response: (4) Hyperkalemia: (5) Acute kidney injury: (6) Hyperkalemia: History of Present Illness Reason for Consultation: Hypoxemic respiratory failure with bilateral groundglass opacities Attending Physician: Enriqueta Hernandez MD History of Present Illness This is a 79-year-old male who was recently discharged from the hospital with a past medical history of metastatic prostate cancer on chemotherapy and hormonal therapy who recently underwent Doxil Taxol chemotherapy, ESTRELLA/OHS who presents to the hospital due to respiratory failure. Patient was discharged on 12/02/2019 secondary to groundglass opacities that were nonspecific. He had an echo on that admission which demonstrated moderate aortic stenosis with a normal ejection fraction. He received some IV diuretics and steroids during the hospital course and did improve. He was discharged on 2 L nasal cannula. He notes that over the last 2 days he has been having increasing hemoptysis and shortness of breath. On the way to the hospital he actually ran out of oxygen and his sats were around 72%. His and the patient's daughter are both at bedside. The patient daughter is an ER nurse at [employer]. Patient notes that he has been feeling more fatigued lately. He was coughing up some sputum today that was streaked with blood. He did have a CT of his chest that was performed today which demonstrated diffuse groundglass opacities that have worsened since his prior admission. He does have a severely elevated proBNP. His procalcitonin was normal. He was also found to be in A. fib RVR and is currently on a diltiazem drip at 15 mg an hour. Of note, the patient is on apixaban for history of pulmonary embolism 3 years ago. Patient denies any chest pain. He is short of breath. He is mildly tachypneic. He denies any nausea or vomiting. He does have a productive cough as noted above. He denies any fevers or chills. Allergies Allergy/AdvReac Type Severity Reaction Status Date / Time No Known Drug Allergies Allergy Unknown Unknown Verified 11/29/19 00:59 Home Medications Home Medications Medication Instructions Recorded Confirmed Type clonidine HCl 0.3 mg tablet 0.3 mg PO TID #90 tab 07/30/19 12/09/19 Rx fenofibrate micronized 67 mg 67 mg PO DAILY #90 cap 08/05/19 12/09/19 Rx capsule pantoprazole 40 mg tablet,delayed 40 mg PO DAILY #90 tab 08/05/19 12/09/19 Rx release amlodipine 10 mg tablet 10 mg PO DAILY #30 tab 08/28/19 12/09/19 History apixaban 2.5 mg tablet 2.5 mg PO BID tab 08/28/19 12/09/19 History cholecalciferol (vitamin D3) 25 1,000 units PO DAILY cap 08/28/19 12/09/19 History mcg (1,000 unit) capsule coenzyme Q10 100 mg capsule 100 mg PO DAILY cap 08/28/19 12/09/19 History evolocumab 140 mg/mL subcutaneous 140 mg SQ DIRECTED ml 08/28/19 12/09/19 History pen injector labetalol 300 mg tablet 300 mg PO BID #180 tab 08/28/19 12/09/19 History magnesium 250 mg tablet 250 mg PO BID tab 08/28/19 12/09/19 History niacin 500 mg tablet 500 mg PO TID tab 08/28/19 12/09/19 History omega-3 acid ethyl esters 1 gram 1 cap PO DAILY cap 08/28/19 12/09/19 History capsule furosemide 40 mg tablet 40 mg PO DAILY #90 tab 09/18/19 12/09/19 Rx insulin glargine 100 unit/mL 36 units SUBCUT DIRECTED ml 09/21/19 12/09/19 History subcutaneous solution insulin lispro 100 unit/mL 10 - 16 units SUBCUT DIRECTED 09/21/19 12/09/19 History subcutaneous pen ml gabapentin 300 mg capsule 300 mg PO TID #90 cap 10/19/19 12/09/19 Rx oxycodone 5 mg tablet 5 mg PO QID PRN 10 Days #40 tab 10/26/19 12/09/19 Rx bicalutamide 50 mg tablet 50 mg PO DAILY #30 tab 11/02/19 12/09/19 Rx tramadol 50 mg tablet 100 mg PO Q4H PRN #360 tab 11/05/19 12/09/19 Rx leuprolide 7.5 mg intramuscular 7.5 mg IM ONCE #1 ea 11/19/19 12/09/19 Rx syringe kit glucos sul [id number] 1 cap PO BID 11/29/19 12/09/19 History ondansetron HCl 8 mg PO UD PRN 11/29/19 12/09/19 History prochlorperazine maleate 10 mg PO UD PRN 11/29/19 12/09/19 History prednisone 10 mg PO UD 21 Days #100 tab 12/02/19 12/09/19 Rx folic acid 20 mg PO DAILY 12/09/19 12/09/19 History Patient History Medical History Chronic kidney disease (CKD) stage G3b/A1, moderately decreased glomerular filtration rate (GFR) between 30-44 mL/min/1.73 square meter and albuminuria creatinine ratio less than 30 mg/g (Chronic) Coronary artery disease (Chronic) Degenerative arthritis of left knee (Chronic) Diabetes (Chronic) Hypercholesteremia (Chronic) Hypertension (Chronic) Obstructive sleep apnea (Chronic) Surgical History History of heart surgery History of hemorrhoidectomy History of knee replacement History of repair of rotator cuff S/P CABG (coronary artery bypass graft) (Resolved) Family History Mother Cardiac disorder Father Cardiac disorder Myocardial infarction Sister Cardiac disorder Brother Cardiac disorder Social History Preferred Language: Kinyarwanda Communication Ability: Effective Visual Impairment: No Limitations Hearing Ability: Use of Hearing Aid [employer] Required: No Beliefs That Will Affect Care: None marital status: Current Living Situation: Spouse current occupational status: retired Feels Safe at Home: Yes Smoking Status: Never smoker Tobacco Type: cigarettes ; Age Started Using Tobacco: 22 ; Age Quit Using Tobacco: 27 ; Hx Alcohol Use: No Hx Substance Use: No Childhood Exposure to Second-Hand Smoke: Yes Dental Care, Regularly: No Physical Activity Frequency: Does not Exercise Seatbelt Use: sometimes Sunscreen Use: No Review of Systems Review of Systems: All systems reviewed & are unremarkable except as noted in HPI & below Physical Exam Constitutional: WD/WN, vitals as above Obese male. Laying in bed. Has a BiPAP mask in place. Surrounded by his and daughter. Eyes: PERRL, conjunctivae normal, anicteric sclerae ENMT: external ear and nose normal, oropharynx normal Neck: normal visual inspection Respiratory: Mild bibasilar crackles. Tachypneic. On BiPAP. Cardiovascular: Systolic flow murmur noted in the right upper sternal border. 3+ pitting edema bilaterally. Gastrointestinal (Abdomen): normal bowel sounds, soft, nontender, no hepatosplenomegaly Musculoskeletal: no cyanosis or clubbing, extremities motor strength 5/5 Neurologic: PERRL, EOMI, accommodation nl, no face palsy, no dysarthria Psychiatric: A+Ox3, euthymic affect Lymphatic: no cervical or axillary lymphadenopathy Results & Data Vital Signs (Past 12 Hours) Vital Signs Temp Pulse Pulse Resp BP BP Pulse Ox 12/09/19 13:20 133 H 40 H 95 12/09/19 13:01 134 H 152/113 H 93 12/09/19 12:45 133 H 144/88 H 95 12/09/19 12:31 142 H 145/100 H 93 12/09/19 12:16 123 H 119/80 94 12/09/19 12:10 124 H 30 H 94 12/09/19 12:00 135 H 139/80 89 L 12/09/19 11:46 124 H 145/92 H 89 L 12/09/19 11:42 133 H 36 H 170/109 H 90 12/09/19 11:15 127 H 143/80 H 93 12/09/19 11:00 120 H 28 H 127/76 92 12/09/19 10:53 121 H 125/101 H 12/09/19 10:45 122 H 125/101 H 91 12/09/19 10:30 140 H 128/92 92 12/09/19 10:16 141 H 112/77 99 12/09/19 10:15 129 H 100 12/09/19 10:13 129 H 129 H 25 H 97 12/09/19 10:08 141 H 25 H 100 12/09/19 10:01 121 H 128/60 92 12/09/19 10:00 133 H 93 12/09/19 09:55 126 H 91 12/09/19 09:50 152 H 152 H 30 H 126/60 89 L 12/09/19 09:46 98.4 F 144 H 42 H 133/71 77 L I did personally reviewed the patient's pertinent labs, chest imaging and prior notes. Coding Level of Care Code Critical Care 1st 30-74 mins Diagnoses Acute hypoxemic respiratory failure J96.01 Elevated troponin R79.89 Atrial fibrillation with rapid ventricular response I48.91 Hyperkalemia E87.5 Acute kidney injury N17.9 Hyperkalemia E87.5 Time Spent (min) 35
[2019-12-09] MEDS: ALBUT/IPRATROP 3MG/0.5MG NEB 3 ML VIAL NEB SCH ×3 (15:15→23:02)
--- NOTE | 2019-12-09 15:29 | Electrocardiogram Report ---
Test Reason : Blood Pressure : / mmHG Vent. Rate : 151 BPM Atrial Rate : 163 BPM P-R Int : 000 ms QRS Dur : 092 ms QT Int : 306 ms P-R-T Axes : 000 053 197 degrees QTc Int : 485 ms Poor data quality, interpretation may be adversely affected Atrial fibrillation with rapid ventricular response Cannot rule out Inferior infarct (cited on or before 28-MAY-2018) Marked ST abnormality, possible anterolateral subendocardial injury Abnormal ECG When compared with ECG of 28-NOV-2019 23:46, Significant changes have occurred Confirmed by Danyel France ([id number]) on 12/09/2019 3:28:35 PM Referred By: REFERRED SELF Confirmed By:Danyel France
[2019-12-09] MEDS: GABAPENTIN 300 MG CAP PO SCH ×2 (15:52→20:39)
[2019-12-09] MEDS ORDERED: VANCOMYCIN HCL 1,500 MG in SODIUM CHLORIDE 0.9% 500 ML IV ONE (16:00)
[2019-12-09] MEDS ORDERED: INSULIN GLARGINE SOLOSTAR 100 UNITS/ML 3 ML PEN SC ONE (16:00)
[2019-12-09] MEDS ORDERED: PIPERACILLIN/TAZOBACTAM 4.5 GM in DEXTROSE 5% 100 ML IV SCH (16:00)
[2019-12-09 16:03] LABS: BUN Creatinine Ratio 21.2 (10-20); Calcium 8.6 mg/dl (8.5-10.1); Creatinine Clr Calc Pharmacy 41.4 ml/min; Est GFR (African American) 36.7; Est GFR (Non-African American) 31.6; Potassium 5.4 mmol/L (3.5-5.1)
[2019-12-09] MEDS: *FENOFIBRATE*ORDER AWAITING ACTION SCH ×2 (16:06→23:07)
[2019-12-09] MEDS: INSULIN ASPART 100 UNITS/ML 3 ML PEN SC SCH ×3 (16:29→23:33)
[2019-12-09] MEDS ORDERED: METOPROLOL TARTRATE 1 MG/ML VIAL IV STA ×2 (20:17→23:42)
[2019-12-09] MEDS: INSULIN GLARGINE SOLOSTAR 100 UNITS/ML 3 ML PEN SC SCH (20:28)
[2019-12-09] MEDS: FUROSEMIDE 40 MG in SYRINGE 0 ML IV SCH (20:30)
[2019-12-09] MEDS: methylPREDNISolone 40 MG in SYRINGE 0 ML IV SCH (20:31)
[2019-12-09] MEDS: MAGNESIUM OXIDE 400 MG TAB PO SCH (20:40)
[2019-12-09] MEDS ORDERED: FUROSEMIDE 40 MG/4 ML VIAL IV SCH (21:00)
[2019-12-09] MEDS ORDERED: methylPREDNISolone 40 MG in SYRINGE 0 ML IV SCH (21:00)
[2019-12-10] MEDS: ALBUT/IPRATROP 3MG/0.5MG NEB 3 ML VIAL NEB SCH ×6 (03:00→23:06)
[2019-12-10] MEDS: INSULIN ASPART 100 UNITS/ML 3 ML PEN SC SCH ×6 (04:36→23:37)
[2019-12-10] MEDS ORDERED: METOPROLOL TARTRATE 1 MG/ML VIAL IV STA ×2 (04:58→23:10)
[2019-12-10 04:59] LABS: Hematocrit (blood only) 28.7 % (42-52); Hemoglobin 8.9 g/dL (14.0-18.0); Immature Granulocytes % (auto) 0.9 %; Lymphocytes # (auto) 0.47 K/uL (1.2-3.4); Lymphocytes % (auto) 4.3 %; Mean Corpuscular Hemoglobin 28.9 pg (25-34); Mean Corpuscular Volume 93.2 fL (80-100); Mean Platelet Volume 9.6 fL (7.4-10.4); Monocytes # (auto) 0.22 K/uL (0.11-0.59); Neutrophils # (auto) 10.16 K/uL (1.4-6.5); Neutrophils % (auto) 92.8 %; Nucleated RBC # (auto) 0.03 K/uL (0-0); Nucleated RBC % (auto) 0.2 %; Platelet Count 236 K/uL (130-400); RDW Coefficient of Variation 18.9 % (11.5-14.5); Red Blood Count 3.08 M/uL (4.7-6.1); White Blood Count 10.95 K/uL (4.8-10.8)
[2019-12-10 05:26] LABS: BUN Creatinine Ratio 23.6 (10-20); Creatinine Clr Calc Pharmacy 45.7 ml/min; Est GFR (African American) 41.4; Est GFR (Non-African American) 35.8; Magnesium 2.4 mg/dl (1.8-2.4); Phosphorus 5.4 mg/dl (2.5-4.9); Potassium 4.8 mmol/L (3.5-5.1)
[2019-12-10] MEDS: dilTIAZem HCL 125 MG in DEXTROSE 5% 100 ML IV SCH ×2 (05:29→15:07)
[2019-12-10 05:35] LABS: Estimated Average Glucose 163 mg/dl; Hemoglobin A1C 7.3 % (4.5-5.6)
[2019-12-10] MEDS: methylPREDNISolone 40 MG in SYRINGE 0 ML IV SCH ×3 (08:24→20:44)
[2019-12-10] MEDS: FUROSEMIDE 40 MG in SYRINGE 0 ML IV SCH ×2 (08:24→20:44)
[2019-12-10] MEDS: INSULIN GLARGINE SOLOSTAR 100 UNITS/ML 3 ML PEN SC SCH ×2 (08:25→21:32)
[2019-12-10] MEDS: *FENOFIBRATE*ORDER AWAITING ACTION SCH (08:25)
[2019-12-10] MEDS ORDERED: FENOFIBRATE MICRONIZED 67 MG PO SCH (09:00)
[2019-12-10] MEDS ORDERED: predniSONE 10 MG TABLET PO SCH (09:00)
[2019-12-10] MEDS ORDERED: BICALUTAMIDE 50 MG TAB PO SCH (09:00)
[2019-12-10] MEDS ORDERED: NON-FORMULARY MEDICATION (Coenzyme Q10 100 MG) PO SCH (09:00)
[2019-12-10] MEDS ORDERED: FOLIC ACID 20 MG PO SCH (09:00)
--- NOTE | 2019-12-10 09:08 | Critical Care Progress Note ---
Date of Service December 10, 2019 Assessment & Plan (1) Acute hypoxemic respiratory failure: Patient continues to be hypoxemic requiring high amounts of oxygen. We will continue IV Solu-Medrol and Lasix. He still having some hemoptysis. He is not a candidate for bronchoscopy at the moment given his profound hypoxemia. I will advance his diet with full liquids at this time. We will continue p.o. Protonix I will. Insulin per pharmacy. We will obtain a chest x-ray today to follow-up on the infiltrates. He does have atrial fibrillation with rapid ventricular response. He is on the diltiazem drip. Cardiology is following. Holding any anticoagulation at this point due to hemoptysis. I have personally spent 30 minutes of critical care time in the direct management of this patient. This is a life/limb threatening event. This includes time spent evaluating patient, direct bedside care, chart review, placing orders, interpretation of diagnostic studies, discussion with consultants, patient, and family members, as well as other required patient management activities. This time is exclusive of all separately billable procedures, and teaching time and separate from and in addition to any other critical care service time. Thank you for allowing us to participate in the care of this patient. (2) Elevated troponin: (3) Atrial fibrillation with rapid ventricular response: (4) Hyperkalemia: (5) Acute kidney injury: (6) Aortic stenosis: Subjective Patient is hungry today. He is still hypoxemic. He is requiring up to 40 L of oxygen and on 100% FiO2. He denies any chest pain. He is still having hemoptysis that is admixed with sputum. He is diuresing well with Lasix. He denies any chest pain, nausea or vomiting. He is hungry as noted. Physical Exam Constitutional: WD/WN, vitals as above Obese male. Laying in bed. Has a BiPAP mask in place. Surrounded by his and daughter. Eyes: PERRL, conjunctivae normal, anicteric sclerae ENMT: external ear and nose normal, oropharynx normal Neck: normal visual inspection Respiratory: Mild bibasilar crackles. Tachypneic. On BiPAP. Cardiovascular: Systolic flow murmur noted in the right upper sternal border. 3+ pitting edema bilaterally. Gastrointestinal (Abdomen): normal bowel sounds, soft, nontender, no hepatosplenomegaly Musculoskeletal: no cyanosis or clubbing, extremities motor strength 5/5 Neurologic: PERRL, EOMI, accommodation nl, no face palsy, no dysarthria Psychiatric: A+Ox3, euthymic affect Lymphatic: no cervical or axillary lymphadenopathy Results & Data Vital Signs (Past 12 Hours) Vital Signs Temp Pulse Pulse Pulse Resp BP BP 12/10/19 07:06 121 H 20 12/10/19 07:04 104 H 23 93/65 L 12/10/19 06:05 120 H 20 12/10/19 06:03 115 H 18 128/83 12/10/19 05:30 121 H 125/91 12/10/19 05:03 112 H 35 H 125/91 12/10/19 04:03 98.2 F 108 H 29 H 115/81 12/10/19 03:03 114 H 17 120/80 12/10/19 03:00 101 H 20 120/80 12/10/19 02:03 101 H 38 H 115/89 12/10/19 02:00 96 H 24 115/89 12/10/19 01:03 122 H 25 H 126/89 12/10/19 01:00 99 H 24 126/89 12/10/19 00:46 115 H 25 H 12/10/19 00:03 115 H 19 133/71 12/10/19 00:00 97.9 F 112 H 20 133/71 12/09/19 23:46 115 H 120/87 12/09/19 23:06 102 H 20 12/09/19 23:04 106 H 20 12/09/19 23:03 97 H 41 H 120/87 12/09/19 23:00 112 H 24 120/87 12/09/19 22:03 108 H 18 124/70 12/09/19 22:00 111 H 18 124/70 Pulse Ox 12/10/19 07:06 92 12/10/19 07:04 93 12/10/19 06:05 91 12/10/19 06:03 83 L 12/10/19 05:30 12/10/19 05:03 95 12/10/19 04:03 95 12/10/19 03:03 94 12/10/19 03:00 98 12/10/19 02:03 88 L 12/10/19 02:00 96 12/10/19 01:03 98 12/10/19 01:00 96 12/10/19 00:46 91 12/10/19 00:03 87 L 12/10/19 00:00 90 12/09/19 23:46 12/09/19 23:06 92 12/09/19 23:04 93 12/09/19 23:03 89 L 12/09/19 23:00 95 12/09/19 22:03 89 L 12/09/19 22:00 90 Coding Level of Care Code Critical Care 1st 30-74 mins Diagnoses Acute hypoxemic respiratory failure J96.01 Elevated troponin R79.89 Atrial fibrillation with rapid ventricular response I48.91 Hyperkalemia E87.5 Acute kidney injury N17.9 Aortic stenosis I35.0 Time Spent (min) 30
[2019-12-10] MEDS: GABAPENTIN 300 MG CAP PO SCH ×3 (09:48→20:45)
[2019-12-10] MEDS: CHOLECALCIFEROL 1,000 UNITS 25 MCG TAB PO SCH (09:48)
[2019-12-10] MEDS: OMEGA-3 (PURIFIED FISH OIL) 1 GM CAP PO SCH (09:48)
[2019-12-10] MEDS: MAGNESIUM OXIDE 400 MG TAB PO SCH ×2 (09:48→20:45)
[2019-12-10] MEDS: PANTOprazole 40 MG TAB PO SCH (09:48)
--- NOTE | 2019-12-10 09:50 | Cardiology Progress Note ---
Date of Service December 10, 2019 Assessment & Plan (1) Atrial fibrillation: 2. Acute hypoxic respiratory failure 3. Acute diastolic heart failure 4. CAD post CABG and multiple PCI 5. Elevated troponin 6. CKD 7. Metastatic prostate cancer 8. Type 2 diabetes 9. Dyslipidemia Diuresing well on BID IV diuretics Renal function stable Well perfused with persistent congestion on exam Remains in Afib - HRs 110 to 120s Troponin has peaked - does not represent ACS. -- Agree with continued lasix 40mg BID IV -- Continued rate control with diltiazem, metoprolol. OK with HR in 110s. -- OK to hold eliquis -- Would ideally restart on ASA when safe from pulm standpoint. Will continue to follow Subjective Breathing modestly improved from admission. Denies any chest pain. Denies any palpitations. -1800 overnight Telemetry reviewedremains in atrial fibrillation, heart rates in the 110s to 120s primarily Review of Systems Review of Systems: All systems reviewed & are unremarkable except as noted in HPI & below Physical Exam Physical Exam: General: Comfortable but tachypneic on high-flow oxygen Eyes: Sclerae anicteric, extraocular movements intact HENT: Oropharynx clear mucous membranes moist Neck: JVP 9-10 Lungs: Bibasilar crackles at bases Cardiac: Tachycardic, irregularly irregular Abdomen: Soft, nontender Neuro: Nonfocal Psych: Alert orient x3, normal affect and mood Extremities/Vascular: -- 2+ radial bilaterally -- No lower extremity ulcerations. -- 2+ edema to sheridan Results & Data Vital Signs (Past 12 Hours) Vital Signs Temp Pulse Pulse Pulse Resp BP BP 12/10/19 07:06 121 H 20 12/10/19 07:04 104 H 23 93/65 L 12/10/19 06:05 120 H 20 12/10/19 06:03 115 H 18 128/83 12/10/19 05:30 121 H 125/91 12/10/19 05:03 112 H 35 H 125/91 12/10/19 04:03 98.2 F 108 H 29 H 115/81 12/10/19 03:03 114 H 17 120/80 12/10/19 03:00 101 H 20 120/80 12/10/19 02:03 101 H 38 H 115/89 12/10/19 02:00 96 H 24 115/89 12/10/19 01:03 122 H 25 H 126/89 12/10/19 01:00 99 H 24 126/89 12/10/19 00:46 115 H 25 H 12/10/19 00:03 115 H 19 133/71 12/10/19 00:00 97.9 F 112 H 20 133/71 12/09/19 23:46 115 H 120/87 12/09/19 23:06 102 H 20 12/09/19 23:04 106 H 20 12/09/19 23:03 97 H 41 H 120/87 12/09/19 23:00 112 H 24 120/87 12/09/19 22:03 108 H 18 124/70 12/09/19 22:00 111 H 18 124/70 Pulse Ox 12/10/19 07:06 92 12/10/19 07:04 93 12/10/19 06:05 91 12/10/19 06:03 83 L 12/10/19 05:30 12/10/19 05:03 95 12/10/19 04:03 95 12/10/19 03:03 94 12/10/19 03:00 98 12/10/19 02:03 88 L 12/10/19 02:00 96 12/10/19 01:03 98 12/10/19 01:00 96 12/10/19 00:46 91 12/10/19 00:03 87 L 12/10/19 00:00 90 12/09/19 23:46 12/09/19 23:06 92 12/09/19 23:04 93 12/09/19 23:03 89 L 12/09/19 23:00 95 12/09/19 22:03 89 L 12/09/19 22:00 90 PG Care Time/CCT Total # of Minutes Spent Total Time Spent with Patient: Total time spent is greater than 50% in coordination of care (as documented) at patient's floor/unit and/or counseling patient:
--- NOTE | 2019-12-10 10:19 | XRay Report ---
XR chest 1V portable CLINICAL HISTORY: 79 years-old Male presenting with follow up infiltrates. TECHNIQUE: Portable upright AP view of the chest was obtained. COMPARISON: 12/09/2019. FINDINGS: Median sternotomy wires. Atherosclerosis of the aortic arch. Cardiac silhouette enlarged. Elevation o f the right hemidiaphragm similar to prior. Multifocal bilateral patchy hazy opacities on a backgroun d of mildly coarsened lung markings. These may be minimally decreased in the left midlung. Multifocal sclerotic osseous lesions are best appreciated on recent CT from yesterday. Upper abdomen normal. IMPRESSION: 1. Stable to slightly improved bilateral patchy pulmonary infiltrates. 2. Underlying chronic lung disease. 3. Cardiomegaly. ACT 112: Negative or not required by law. Electronically signed by: Salvador Singh M.D. 12/10/2019 10:17 AM
--- NOTE | 2019-12-10 12:05 | Pharmacy Report ---
Pharmacy Glycemic Short Note 2 - Date of Service December 10, 2019 - Glycemic Short BSG Results (Last 24 hours): 12/09/19 12/09/19 12/09/19 15:30 16:26 20:20 Glucose 248 H POC Glucose 266 H 203 H 12/09/19 12/10/19 12/10/19 23:29 04:32 04:44 Glucose 148 H POC Glucose 171 H 153 H 12/10/19 12/10/19 07:55 11:22 Glucose POC Glucose 161 H 252 H OUTPATIENT ANTIDIABETIC REGIMEN: * Lantus 36 units daily * Lispro per scale * ASSESSMENT: * PLAN FOR INPATIENT GLYCEMIC CONTROL: * Hold outpatient oral diabetes medications * Basal insulin * Lantus [] units SQ BID * Bolus insulin * NovoLog per scale ACHS or Q6hrs while NPO * Goal Range: Low [] mg/dL - High [] mg/dL * Correction Factor: [] mg/dL/unit * Nutritional / Prandial insulin per carb ratio of 1 unit per [] grams CHO consumed PLAN FOR DISCHARGE: *
--- NOTE | 2019-12-10 13:03 | Pharmacy Report ---
Pharmacy Glycemic Short Note 2 - Date of Service December 10, 2019 - Glycemic Short BSG Results (Last 24 hours): 12/09/19 12/09/19 12/09/19 15:30 16:26 20:20 Glucose 248 H POC Glucose 266 H 203 H 12/09/19 12/10/19 12/10/19 23:29 04:32 04:44 Glucose 148 H POC Glucose 171 H 153 H 12/10/19 12/10/19 07:55 11:22 Glucose POC Glucose 161 H 252 H OUTPATIENT ANTIDIABETIC REGIMEN: * Lantus 36 units daily * Lispro per scale * A1c 7.3% ASSESSMENT: * Type 2 diabetic admitted for hypoxic resp failure, a fib RVR, SAMANTHA, hemoptysis * Patient was admitted to the hospital recently, that admission was reviewed for steroid use / insulin doses / BSGs * SQ Basal/Bolus regimen initiated yesterday using data from this prior admission where it appeared patient would require > 100 units/day on current steroid regimen to achieve glycemic targets * Fasting BSG down to 161 this AM w/ 55 units Lantus + 9 units Novolog correction on board * Diet was advanced this AM (prelunch hyperglycemia due to late lunch arrival and lack of prandial insulin) * Steroids continue today; insulin doses we only be adjusted slightly as diet has been advanced PLAN FOR INPATIENT GLYCEMIC CONTROL: * Basal insulin * Lantus SQ BID * 0 units if less than 110 * 16 units if 110-139 * 24 units if 140-180 * 30 units if greater than 180 * Bolus insulin * NovoLog per scale ACHS + 0000,0400 - initially * Goal Range: Low 110 mg/dL - High 140 mg/dL * Correction Factor: 15 mg/dL/unit * Nutritional / Prandial insulin per carb ratio of 1 unit per 5 grams CHO consumed PLAN FOR DISCHARGE: * to be determined
[2019-12-10] MEDS: METOPROLOL TARTRATE 25 MG TAB PO SCH ×2 (13:35→20:44)
--- NOTE | 2019-12-10 14:47 | Hospitalist Progress Note ---
Date of Service December 10, 2019 Assessment & Plan (1) Acute respiratory failure with hypoxia: multifactorial likely some pneumonitis, could be alveolar hemorrhage procalcitonin normal so antibiotics stopped continue on Solu Medrol 40 q8 continue to hold Eliquis, having some hemoptysis continue high flow nasal canula in the ICU ideally would need bronchoscopy but he is requiring too much oxygen and the patient is DNI, DNR will see if oxygen requiremements improve (2) Pneumonitis: continue treatment with Solu Medrol 40 q8 last admission he was started on Prednisone for suspected Prednisone could be due to recent chemo but unclear ideally would need bronch but requiring too much oxygen (3) Prostate cancer metastatic to bone: Continue following up with oncology. currently on Lupron, got a shot yesterday (4) Atrial fibrillation: in RVR, on Diltiazem drip at 15mg/hr cardiology following no anticoagulation due to hemoptysis was on Eliquis prior for history of DVT/PE (5) Anemia: Anemia of chronic disease due to metastatic prostate cancer to the bones. Hb is stable today (6) COPD (chronic obstructive pulmonary disease) case management patient: continue Solu Medrol, Duoneb (7) Chronic kidney disease (CKD) stage G3b/A1, moderately decreased glomerular f iltration rate (GFR) between 30-44 mL/min/1.73 square meter and albuminuria creatinine ratio less than 30 mg/g: Cr is at baseline at 1.79 continue to monitor while on Lasix he is hypervolemic on exam and needs the Lasix K is 4.8 (8) Obstructive sleep apnea: Continue CPAP or BiPAP for acute respiratory failure and as night as needed. (9) Coronary artery disease: no chest pain troponin continues to be slightly high at 2 has not really trended up or down could be due to afib with RVR cardiology following (10) Hypercholesteremia: (11) Hypertension: Continue monitoring. As per ICU team (12) Sepsis: no signs of sepsis no current infection (13) Pneumonia: pneumonia was initially suspected, will stop antibiotics due to normal procalcitonin Subjective patient feeling a little better here in the ICU discussed with critical care, appreciate their input continue Lasix and steroids, need to hold on bronch due to high oxygen needs still with some RVR on monitor, on diltiazem drip but maxed at 15mg admits to some hemoptysis with his cough has dyspnea at rest but better, likely because he is now getting sufficient oxygen no chest pain or pressure, no abdominal pain, no nausea/vomiting he is eating updated his at the bedside labs reviewed, WBC 10k, Hb 8.9, Cr at baseline of 1.79, Trop 2.5 over night Review of Systems Review of Systems: All systems reviewed & are unremarkable except as noted in HPI & below Constitutional: + fatigue and + weakness; no fever, no chills and no sweats Respiratory: + cough, + dyspnea, + dyspnea on exertion and + hemoptysis; no wheezing Cardiovascular: + edema; no chest pain Gastrointestinal: no abdominal pain, no nausea, no vomiting, no constipation and no diarrhea/loose stools Physical Exam Constitutional: well developed, well nourished, + ill appearing and + obese Eyes: PERRL, conjunctivae normal, anicteric sclerae ENMT: external ear and nose normal, oropharynx normal Neck: trachea midline, no thyromegaly Respiratory: + labored breathing, + uses accessory muscles and + cough Auscultation: + crackles (bilaterally) Cardiovascular: Rate/Rhythm: + tachycardic and + irregularly irregular Heart Sounds: normal S1 and normal S2; no murmur Vessels: no JVD Extremities: normal capillary refill and + edema (pitting to knees bilaterally); no calf tenderness Gastrointestinal (Abdomen): normal bowel sounds, soft, nontender, no hepatosplenomegaly Musculoskeletal: no cyanosis or clubbing, extremities motor strength 5/5 Skin: no rashes, warm and dry (bruising on arms) Neurologic: patellar DTR's 2+ bilat, sensation intact and PERRL, EOMI, accommodation nl, no face palsy, no dysarthria Psychiatric: A+Ox3, euthymic affect Lymphatic: no cervical or axillary lymphadenopathy Results & Data Vital Signs (Past 12 Hours) Vital Signs Temp Pulse Pulse Pulse Resp BP BP 12/10/19 13:04 119 H 27 H 127/76 12/10/19 12:03 128 H 24 154/82 H 12/10/19 11:25 121 H 19 12/10/19 11:03 118 H 21 126/82 12/10/19 09:04 134 H 16 152/93 H 12/10/19 08:04 116 H 20 108/80 12/10/19 07:06 121 H 20 12/10/19 07:04 104 H 23 93/65 L 12/10/19 06:05 120 H 20 12/10/19 06:03 115 H 18 128/83 12/10/19 05:30 121 H 125/91 12/10/19 05:03 112 H 35 H 125/91 12/10/19 04:03 36.8 C 108 H 29 H 115/81 12/10/19 03:03 114 H 17 120/80 12/10/19 03:00 101 H 20 120/80 Pulse Ox 12/10/19 13:04 94 12/10/19 12:03 95 12/10/19 11:25 93 12/10/19 11:03 89 L 12/10/19 09:04 83 L 12/10/19 08:04 88 L 12/10/19 07:06 92 12/10/19 07:04 93 12/10/19 06:05 91 12/10/19 06:03 83 L 12/10/19 05:30 12/10/19 05:03 95 12/10/19 04:03 95 12/10/19 03:03 94 12/10/19 03:00 98 Laboratory Results Laboratory Results - last 24 hr 12/09/19 12/09/19 12/09/19 13:50 13:50 13:52 WBC RBC Hgb Hct MCV MCH MCHC RDW Std Deviation RDW Coeff of Jose Luis Plt Count MPV Immature Gran % (Auto) Neut % (Auto) Lymph % (Auto) [place] % (Auto) Eos % (Auto) Baso % (Auto) Immature Gran # (Auto) Neut # (Auto) Lymph # (Auto) [place] # (Auto) Eos # (Auto) Baso # (Auto) Absolute Nucleated RBC Nucleated RBC % (auto) Sodium Potassium Chloride Carbon Dioxide Anion Gap BUN Creatinine Est Cr Clr Drug Dosing Est GFR ( Amer) Est GFR (Non-Af Amer) BUN/Creatinine Ratio Glucose POC Glucose Estimat Average Glucose Hemoglobin A1c Calcium Phosphorus Magnesium Troponin I Procalcitonin 0.14 Nasal Screen MRSA (PCR) Negative Influenza Type A (PCR) Neg for Influ A Influenza Type B (PCR) Neg for Influ B 12/09/19 12/09/19 12/09/19 13:52 15:30 16:26 WBC RBC Hgb Hct MCV MCH MCHC RDW Std Deviation RDW Coeff of Jose Luis Plt Count MPV Immature Gran % (Auto) Neut % (Auto) Lymph % (Auto) [place] % (Auto) Eos % (Auto) Baso % (Auto) Immature Gran # (Auto) Neut # (Auto) Lymph # (Auto) [place] # (Auto) Eos # (Auto) Baso # (Auto) Absolute Nucleated RBC Nucleated RBC % (auto) Sodium 136 Potassium 5.4 H Chloride 106 Carbon Dioxide 23 Anion Gap 7.0 BUN 42 H Creatinine 1.98 H Est Cr Clr Drug Dosing 41.4 Est GFR ( Amer) 36.7 Est GFR (Non-Af Amer) 31.6 BUN/Creatinine Ratio 21.2 H Glucose 248 H POC Glucose 266 H Estimat Average Glucose Hemoglobin A1c Calcium 8.6 Phosphorus Magnesium Troponin I 2.860 H* Procalcitonin Nasal Screen MRSA (PCR) Influenza Type A (PCR) Influenza Type B (PCR) 12/09/19 12/09/19 12/09/19 19:46 20:20 23:29 WBC RBC Hgb Hct MCV MCH MCHC RDW Std Deviation RDW Coeff of Jose Luis Plt Count MPV Immature Gran % (Auto) Neut % (Auto) Lymph % (Auto) [place] % (Auto) Eos % (Auto) Baso % (Auto) Immature Gran # (Auto) Neut # (Auto) Lymph # (Auto) [place] # (Auto) Eos # (Auto) Baso # (Auto) Absolute Nucleated RBC Nucleated RBC % (auto) Sodium Potassium Chloride Carbon Dioxide Anion Gap BUN Creatinine Est Cr Clr Drug Dosing Est GFR ( Amer) Est GFR (Non-Af Amer) BUN/Creatinine Ratio Glucose POC Glucose 203 H 171 H Estimat Average Glucose Hemoglobin A1c Calcium Phosphorus Magnesium Troponin I 2.880 H* Procalcitonin Nasal Screen MRSA (PCR) Influenza Type A (PCR) Influenza Type B (PCR) 12/10/19 12/10/19 12/10/19 01:23 01:23 04:32 WBC RBC Hgb Hct MCV MCH MCHC RDW Std Deviation RDW Coeff of Jose Luis Plt Count MPV Immature Gran % (Auto) Neut % (Auto) Lymph % (Auto) [place] % (Auto) Eos % (Auto) Baso % (Auto) Immature Gran # (Auto) Neut # (Auto) Lymph # (Auto) [place] # (Auto) Eos # (Auto) Baso # (Auto) Absolute Nucleated RBC Nucleated RBC % (auto) Sodium Potassium Chloride Carbon Dioxide Anion Gap BUN Creatinine Est Cr Clr Drug Dosing Est GFR ( Amer) Est GFR (Non-Af Amer) BUN/Creatinine Ratio Glucose POC Glucose 153 H Estimat Average Glucose 163 Hemoglobin A1c 7.3 H Calcium Phosphorus Magnesium Troponin I 2.550 H* Procalcitonin Nasal Screen MRSA (PCR) Influenza Type A (PCR) Influenza Type B (PCR) 12/10/19 12/10/19 12/10/19 04:44 04:44 07:55 WBC 10.95 H RBC 3.08 L Hgb 8.9 L Hct 28.7 L MCV 93.2 MCH 28.9 MCHC 31.0 L RDW Std Deviation 63.0 H RDW Coeff of Jose Luis 18.9 H Plt Count 236 MPV 9.6 Immature Gran % (Auto) 0.9 Neut % (Auto) 92.8 Lymph % (Auto) 4.3 [place] % (Auto) 2.0 Eos % (Auto) 0.0 Baso % (Auto) 0.0 Immature Gran # (Auto) 0.10 H Neut # (Auto) 10.16 H Lymph # (Auto) 0.47 L [place] # (Auto) 0.22 Eos # (Auto) 0.00 Baso # (Auto) 0.00 Absolute Nucleated RBC 0.03 H Nucleated RBC % (auto) 0.2 Sodium 137 Potassium 4.8 Chloride 106 Carbon Dioxide 24 Anion Gap 7.0 BUN 42 H Creatinine 1.79 H Est Cr Clr Drug Dosing 45.7 Est GFR ( Amer) 41.4 Est GFR (Non-Af Amer) 35.8 BUN/Creatinine Ratio 23.6 H Glucose 148 H POC Glucose 161 H Estimat Average Glucose Hemoglobin A1c Calcium 8.0 L Phosphorus 5.4 H Magnesium 2.4 Troponin I Procalcitonin Nasal Screen MRSA (PCR) Influenza Type A (PCR) Influenza Type B (PCR) 12/10/19 12/10/19 11:22 14:30 WBC RBC Hgb Hct MCV MCH MCHC RDW Std Deviation RDW Coeff of Jose Luis Plt Count MPV Immature Gran % (Auto) Neut % (Auto) Lymph % (Auto) [place] % (Auto) Eos % (Auto) Baso % (Auto) Immature Gran # (Auto) Neut # (Auto) Lymph # (Auto) [place] # (Auto) Eos # (Auto) Baso # (Auto) Absolute Nucleated RBC Nucleated RBC % (auto) Sodium Potassium Chloride Carbon Dioxide Anion Gap BUN Creatinine Est Cr Clr Drug Dosing Est GFR ( Amer) Est GFR (Non-Af Amer) BUN/Creatinine Ratio Glucose POC Glucose 252 H 242 H Estimat Average Glucose Hemoglobin A1c Calcium Phosphorus Magnesium Troponin I Procalcitonin Nasal Screen MRSA (PCR) Influenza Type A (PCR) Influenza Type B (PCR) Diagnostic Findings XR chest 1V portable CLINICAL HISTORY: 79 years-old Male presenting with follow up infiltrates. TECHNIQUE: Portable upright AP view of the chest was obtained. COMPARISON: 12/09/2019. FINDINGS: Median sternotomy wires. Atherosclerosis of the aortic arch. Cardiac silhouette enlarged. Elevation of the right hemidiaphragm similar to prior. Multifocal bilateral patchy hazy opacities on a background of mildly coarsened lung markings. These may be minimally decreased in the left midlung. Multifocal sclerotic osseous lesions are best appreciated on recent CT from yesterday. Upper abdomen normal. IMPRESSION: 1. Stable to slightly improved bilateral patchy pulmonary infiltrates. 2. Underlying chronic lung disease. 3. Cardiomegaly. Medications Administered Current Inpatient Medications Al Hydrox/Mg Hydrox/Simethicone (Maalox) 15 ml PO Q4H PRN PRN Reason: Dyspepsia Stop: 01/08/20 13:48 Albuterol (Duoneb) 3 ml NEB Q4R UMU Stop: 01/08/20 14:59 Last Admin: 12/10/19 11:22 Dose: 3 ml Documented by: Dextrose (Dextrose 50%) 25 - 50 ml IV UD PRN; Protocol PRN Reason: Hypoglycemia Protocol Stop: 01/08/20 13:48 Fenofibrate (Fenofibrate) 48 mg PO DAILY UMU Stop: 01/10/20 08:59 Fish Oil ([place]-3 (Purified Fish Oil)) 1 gm PO DAILY UMU Stop: 01/09/20 08:59 Last Admin: 12/10/19 09:48 Dose: 1 gm Documented by: Gabapentin (Neurontin) 300 mg PO TID UMU Stop: 01/08/20 13:59 Last Admin: 12/10/19 13:35 Dose: 300 mg Documented by: Glucagon (Glucagen) 1 mg SQ UD PRN; Protocol PRN Reason: Hypoglycemia Protocol Stop: 01/08/20 13:48 Glucose (Dex4 Glucose) 4 - 8 tabs PO UD PRN; Protocol PRN Reason: Hypoglycemia Protocol Stop: 01/08/20 13:48 Glucose (Glucose 40%) 15 - 30 gm PO UD PRN; Protocol PRN Reason: Hypoglycemia Protocol Stop: 01/08/20 13:48 Diltiazem HCl 125 mg/ Dextrose 125 mls @ 15 mls/hr IV .Q8H20M [facility]; Protocol Stop: 01/08/20 12:29 Last Titration: 12/10/19 07:15 Dose: 15 mg/hr, 15 mls/hr Documented by: Furosemide 40 mg/ Syringe 4 mls @ 4 mls/min IV BID [facility] Stop: 01/08/20 20:59 Last Admin: 12/10/19 08:24 Dose: 4 mls/min Documented by: Methylprednisolone 40 mg/ (Syringe) 0.64 mls @ 1.5 mls/min IV TID [facility] Stop: 01/08/20 20:59 Last Admin: 12/10/19 13:35 Dose: 1.5 mls/min Documented by: Insulin Aspart (Novolog Flexpen) 0 units SC ACHS [facility] Stop: 01/09/20 16:29 Insulin Aspart (Novolog Flexpen) 0 units SC TODAY@0000,0400 [facility] Stop: 01/10/20 00:00 Insulin Glargine (Lantus Solostar Pen) 0 units SC BID [facility]; Protocol Stop: 01/09/20 20:59 Magnesium Oxide (Mag-Ox) 400 mg PO BID [facility] Stop: 01/08/20 20:59 Last Admin: 12/10/19 09:48 Dose: 400 mg Documented by: Metoprolol Tartrate (Lopressor) 12.5 mg PO TID [facility] Stop: 01/09/20 13:59 Last Admin: 12/10/19 13:35 Dose: 12.5 mg Documented by: Miscellaneous (Carbohydrates For Hypoglycemia) 15 - 30 gm PO UD PRN PRN Reason: Hypoglycemia Protocol Stop: 01/08/20 13:48 Miscellaneous Information (Consult Glycemic Management Pharmacy) 1 ea N/A UD PRN; Protocol PRN Reason: Consult Stop: 01/08/20 14:10 Ondansetron HCl (Zofran Tab) 8 mg PO Q8H PRN PRN Reason: Nausea And Vomiting Stop: 01/08/20 13:48 Oxycodone HCl (Roxicodone Immediate Rel) 5 mg PO QID PRN PRN Reason: Pain Stop: 12/23/19 14:28 Pantoprazole Sodium (Protonix) 40 mg PO DAILY UMU Stop: 01/09/20 08:59 Last Admin: 12/10/19 09:48 Dose: 40 mg Documented by: Polyethylene Glycol (Miralax Powder Packet) 17 gm PO DAILY PRN PRN Reason: Constipation Stop: 01/08/20 13:48 Prochlorperazine (Compazine) 10 mg PO Q6H PRN PRN Reason: Nausea And Vomiting Stop: 01/08/20 13:48 Tramadol HCl (Ultram) 100 mg PO Q4H PRN PRN Reason: pain Stop: 01/08/20 13:48 Vitamin D (Vitamin D3) 1,000 units PO DAILY [facility] Stop: 01/09/20 08:59 Last Admin: 12/10/19 09:48 Dose: 1,000 units Documented by: PG Care Time/CCT Total # of Minutes Spent Total Time Spent with Patient: Total time spent is greater than 50% in coordination of care (as documented) at patient's floor/unit and/or counseling patient: (1) Pneumonia Laterality: unspecified laterality Lung location: unspecified part of lung Pneumonia type: due to unspecified organism Qualified Code(s): J18.9 - Pneumonia, unspecified organism (2) Anemia Anemia type: unspecified type Qualified Code(s): D64.9 - Anemia, unspecified (3) Atrial fibrillation Atrial fibrillation type: unspecified Qualified Code(s): I48.91 - Unspecified atrial fibrillation
[2019-12-10 22:33] LABS: C Reactive Protein 3.49 mg/dl (0-0.29)
[2019-12-11] MEDS: dilTIAZem HCL 125 MG in DEXTROSE 5% 100 ML IV SCH ×3 (00:37→19:19)
[2019-12-11] MEDS ORDERED: INSULIN ASPART 100 UNITS/ML 3 ML PEN SC SCH (02:00)
[2019-12-11] MEDS: ALBUT/IPRATROP 3MG/0.5MG NEB 3 ML VIAL NEB SCH ×6 (03:31→23:10)
[2019-12-11] MEDS ORDERED: METOPROLOL TARTRATE 1 MG/ML VIAL IV STA (04:06)
[2019-12-11] MEDS: INSULIN ASPART 100 UNITS/ML 3 ML PEN SC SCH ×6 (04:41→23:29)
[2019-12-11 04:49] LABS: Basophils # (auto) 0.01 K/uL (0-0.2); Basophils % (auto) 0.1 %; Hematocrit (blood only) 32.1 % (42-52); Hemoglobin 9.7 g/dL (14.0-18.0); Immature Granulocytes # (auto) 0.08 K/uL (0.00-0.02); Immature Granulocytes % (auto) 0.5 %; Lymphocytes # (auto) 0.46 K/uL (1.2-3.4); Lymphocytes % (auto) 2.9 %; Mean Corpuscular Hemoglobin 28.1 pg (25-34); Mean Corpuscular Hgb Conc 30.2 g/dL (32-36); Mean Platelet Volume 9.7 fL (7.4-10.4); Monocytes # (auto) 0.33 K/uL (0.11-0.59); Monocytes % (auto) 2.1 %; Neutrophils # (auto) 14.88 K/uL (1.4-6.5); Neutrophils % (auto) 94.4 %; Nucleated RBC # (auto) 0.04 K/uL (0-0); Nucleated RBC % (auto) 0.3 %; Platelet Count 338 K/uL (130-400); RDW Standard Deviation 62.6 fL (36.4-46.3); Red Blood Count 3.45 M/uL (4.7-6.1); White Blood Count 15.76 K/uL (4.8-10.8)
[2019-12-11 05:14] LABS: BUN Creatinine Ratio 28.1 (10-20); Calcium 8.3 mg/dl (8.5-10.1); Creatinine Clr Calc Pharmacy 44.9 ml/min; Est GFR (African American) 42.6; Est GFR (Non-African American) 36.7; Magnesium 2.6 mg/dl (1.8-2.4); Potassium 4.9 mmol/L (3.5-5.1)
[2019-12-11 05:15] LABS: Phosphorus 4.9 mg/dl (2.5-4.9)
--- NOTE | 2019-12-11 07:22 | XRay Report ---
XR chest 1V portable CLINICAL HISTORY: 79 years-old Male presenting with f/u. TECHNIQUE: Portable upright AP view of the chest was obtained. COMPARISON: 12/10/2019. FINDINGS: Median sternotomy wires. Atherosclerosis of the aortic arch. Cardiac silhouette enlarged. Pulmonary v ascular prominence. Elevation of the right hemidiaphragm. Mildly low lung volumes bilaterally. Signif icant interval increase and diffuse added density of the lungs with superimposed patchy opacities. Tr cesar right pleural effusion may be present. No pneumothorax. Multifocal sclerotic osseous lesions bett er appreciated on recent CT. Upper abdomen normal. IMPRESSION: 1. Interval worsening of diffuse added density of the lungs with persistent patchy opacities, which could suggest some element of edema superimposed on multifocal pneumonia. 2. Cardiomegaly and volume overload. ACT 112: Negative or not required by law. Electronically signed by: Salvador Singh M.D. 12/11/2019 7:20 AM
[2019-12-11] MEDS: MAGNESIUM OXIDE 400 MG TAB PO SCH (07:53)
[2019-12-11] MEDS: CHOLECALCIFEROL 1,000 UNITS 25 MCG TAB PO SCH (07:53)
[2019-12-11] MEDS: PANTOprazole 40 MG TAB PO SCH (07:54)
[2019-12-11] MEDS: GABAPENTIN 300 MG CAP PO SCH ×3 (07:54→21:24)
[2019-12-11] MEDS: OMEGA-3 (PURIFIED FISH OIL) 1 GM CAP PO SCH (07:54)
[2019-12-11] MEDS: FENOFIBRATE NANOCRYSTALLIZED 48 MG TABLET PO SCH (07:54)
[2019-12-11] MEDS: INSULIN GLARGINE SOLOSTAR 100 UNITS/ML 3 ML PEN SC SCH ×2 (07:56→21:25)
[2019-12-11] MEDS: FUROSEMIDE 40 MG in SYRINGE 0 ML IV SCH (07:57)
[2019-12-11] MEDS: methylPREDNISolone 40 MG in SYRINGE 0 ML IV SCH ×3 (07:57→21:27)
[2019-12-11] MEDS ORDERED: METOPROLOL TARTRATE 25 MG TAB PO SCH (09:00)
[2019-12-11] MEDS ORDERED: dilTIAZem HCL 30 MG TAB PO SCH (09:00)
--- NOTE | 2019-12-11 11:51 | Critical Care Progress Note ---
Date of Service December 11, 2019 Assessment & Plan (1) Acute hypoxemic respiratory failure: Patient continues to be hypoxemic requiring high amounts of oxygen. We will continue IV Solu-Medrol and Lasix. He still having some hemoptysis. He is not a candidate for bronchoscopy at the moment given his profound hypoxemia. I will advance his diet with full liquids at this time. We will continue p.o. Protonix. Insulin per pharmacy. Chest x-ray with no significant changes. We have went up on the metoprolol to 25 mg 4 times daily. I have also started diltiazem 60 mg 3 times a day. He remains on a diltiazem drip as well. Hopefully we will be able to wean this down. I did check his procalcitonin today again which was negative. His hemoglobin is trending upwards. Hopefully, if he does have alveolar hemorrhage this is improving. We are holding all anticoagulation at this point. We have ordered for SCDs for DVT prophylaxis. Also, his proBNP is improving from admission. He is diuresing well. His creatinine is stable. I am switching him to daily Lasix at this time as his BUN is rising. We are increasing his diet to soft. Remain in the ICU at this time. I have personally spent 30 minutes of critical care time in the direct management of this patient. This is a life/limb threatening event. This includes time spent evaluating patient, direct bedside care, chart review, placing orders, interpretation of diagnostic studies, discussion with consultants, patient, and family members, as well as other required patient management activities. This time is exclusive of all separately billable procedures, and teaching time and separate from and in addition to any other critical care service time. Thank you for allowing us to participate in the care of this patient. (2) Elevated troponin: (3) Atrial fibrillation with rapid ventricular response: (4) Hyperkalemia: (5) Acute kidney injury: (6) Aortic stenosis: (7) Hemoptysis: Subjective Patient continues to be in good spirits. His brother and are at bedside. He denies any chest pain. He is still having scant hemoptysis. He continues to be in A. fib with rapid ventricular response. He has not had any fevers. He is currently on 40 L of oxygen at 85% FiO2. Physical Exam Constitutional: WD/WN, vitals as above Eyes: PERRL, conjunctivae normal, anicteric sclerae ENMT: external ear and nose normal, oropharynx normal Neck: normal visual inspection Gastrointestinal (Abdomen): normal bowel sounds, soft, nontender, no hepatosplenomegaly Musculoskeletal: no cyanosis or clubbing, extremities motor strength 5/5 Neurologic: PERRL, EOMI, accommodation nl, no face palsy, no dysarthria Psychiatric: A+Ox3, euthymic affect Lymphatic: no cervical or axillary lymphadenopathy Results & Data Vital Signs (Past 12 Hours) Vital Signs Temp Pulse Pulse Resp BP BP Pulse Ox 12/11/19 11:16 123 H 22 119/96 89 L 12/11/19 11:05 132 H 28 H 96 12/11/19 11:02 132 H 20 91 12/11/19 10:05 133 H 22 125/75 90 12/11/19 09:04 127 H 29 H 136/107 H 98 12/11/19 08:04 98.4 F 128 H 16 120/78 91 12/11/19 07:05 87 L 12/11/19 07:04 125 H 21 139/101 H 98 12/11/19 07:03 132 H 21 93 12/11/19 06:00 120 H 22 134/87 96 12/11/19 05:00 111 H 22 138/90 95 12/11/19 04:11 130 H 146/92 H 12/11/19 04:00 98.1 F 125 H 20 146/92 H 96 12/11/19 03:34 120 H 18 92 12/11/19 03:33 120 H 18 92 12/11/19 03:00 114 H 24 116/83 92 12/11/19 02:00 113 H 24 150/82 H 97 12/11/19 01:50 116 H 26 H 95 12/11/19 01:00 120 H 22 133/40 L 92 12/11/19 00:00 97.9 F 117 H 17 153/69 H 96 Coding Level of Care Code Critical Care 1st 30-74 mins Diagnoses Acute hypoxemic respiratory failure J96.01 Elevated troponin R79.89 Atrial fibrillation with rapid ventricular response I48.91 Hyperkalemia E87.5 Acute kidney injury N17.9 Aortic stenosis I35.0 Hemoptysis R04.2 Time Spent (min) 30
--- NOTE | 2019-12-11 12:43 | Pharmacy Report ---
Pharmacy Glycemic Short Note 2 - Date of Service December 11, 2019 - Glycemic Short BSG Results (Last 24 hours): 12/10/19 12/10/19 12/10/19 14:30 16:22 21:29 Glucose POC Glucose 242 H 176 H 211 H 12/10/19 12/11/19 12/11/19 23:34 04:14 04:30 Glucose 166 H POC Glucose 244 H 173 H 12/11/19 12/11/19 06:46 11:28 Glucose POC Glucose 177 H 233 H OUTPATIENT ANTIDIABETIC REGIMEN: * Lantus 36 units daily * Lispro per scale * A1c 7.3% ASSESSMENT: 12/11 * Glycemic control improving slightly * Over the last 24 hrs 104 units SQ insulin administered * Fasting AM BSG 177 this AM with 50 units basal + 15 units correction given overnight - will slightly uptitrate basal dosing scale * Novolog doses may need to be slightly larger as well. Will adjust CF and CR. * Plan to continue to check BSGs overnight for additional correctional insulin 12/10 * Type 2 diabetic admitted for hypoxic resp failure, a fib RVR, SAMANTHA, hemoptysis * Patient was admitted to the hospital recently, that admission was reviewed for steroid use / insulin doses / BSGs * SQ Basal/Bolus regimen initiated yesterday using data from this prior admission where it appeared patient would require > 100 units/day on current steroid regimen to achieve glycemic targets * Fasting BSG down to 161 this AM w/ 55 units Lantus + 9 units Novolog correction on board * Diet was advanced this AM (prelunch hyperglycemia due to late lunch arrival and lack of prandial insulin) * Steroids continue today; insulin doses we only be adjusted slightly as diet has been advanced PLAN FOR INPATIENT GLYCEMIC CONTROL: * Basal insulin * Lantus SQ BID * 0 units if less than 110 * 18 units if 110-139 * 30 units if BSG greater than 140 * Bolus insulin * NovoLog per scale ACHS + 0000,0400 - initially * Goal Range: Low 110 mg/dL - High 140 mg/dL * Correction Factor: 12 mg/dL/unit * Nutritional / Prandial insulin per carb ratio of 1 unit per 4 grams CHO consumed PLAN FOR DISCHARGE: * to be determined
[2019-12-11] MEDS ORDERED: [UNRECOGNIZED DRUG - REMARK] PRN (13:01)
[2019-12-11] MEDS: METOPROLOL TARTRATE 25 MG TAB PO SCH ×2 (13:03→16:55)
[2019-12-11] MEDS: dilTIAZem HCL 30 MG TAB PO SCH ×2 (13:03→21:24)
[2019-12-11] MEDS: SULFA IV SCH ×2 (15:07→21:30)
[2019-12-11] MEDS: TRIMETH IV SCH ×2 (15:07→21:30)
[2019-12-11] MEDS: DEXTROSE 5% IV SCH ×2 (15:07→21:30)
--- NOTE | 2019-12-11 16:06 | Cardiology Progress Note ---
Date of Service December 11, 2019 Assessment & Plan (1) Atrial fibrillation with rapid ventricular response: 2. Acute hypoxic respiratory failure 3. Acute diastolic heart failure 4. CAD post CABG and multiple PCI 5. Elevated troponin 6. CKD 7. Metastatic prostate cancer 8. Type 2 diabetes 9. Dyslipidemia Diuresing well on BID IV diuretics Renal function stable Well perfused. Mild residual congestion Remains in Afib with intermittent RVR Troponin has peaked - does not represent ACS. --Continue IV diuresis --Limited options for antiarrhythmics or cardioversion at this time. Continued rate control with diltiazem, metoprolol. Blood pressure adequate and would increase metoprolol daily dose to 200 mg. OK with HR in 110s. -- OK to hold eliquis Subjective Breathing minimally improved. Oxygen down to 85%. Remains in atrial fibrillation with RVR heart rates from 110s to 140s. Remains on diltiazem infusion at 15 Negative more than 2 L yesterday Creatinine 1.75 Review of Systems Review of Systems: All systems reviewed & are unremarkable except as noted in HPI & below Physical Exam Physical Exam: General: Comfortable, on high flow oxygen HEENT: Sclerae anicteric, mucous membranes moist Lungs: Scant crackles at bases right greater than left Cardiac: Tachycardic, irregular irregular. JVP 7-8 Abdomen: Soft, nontender, nondistended, positive bowel sounds. Extremities: Warm, well perfused, 1+ lower extremity edema right greater than left to ankles Neuro: Nonfocal Psych: Alert orient x3, normal affect and mood Results & Data Vital Signs (Past 12 Hours) Vital Signs Temp Pulse Pulse Resp BP BP Pulse Ox 12/11/19 15:13 114 H 22 93 12/11/19 15:05 144 H 18 141/117 H 12/11/19 14:06 138 H 24 108/89 94 12/11/19 13:13 131 H 34 H 124/93 86 L 12/11/19 12:04 127 H 20 121/89 91 12/11/19 11:16 123 H 22 119/96 89 L 12/11/19 11:05 132 H 28 H 96 12/11/19 11:02 132 H 20 91 12/11/19 10:05 133 H 22 125/75 90 12/11/19 09:04 127 H 29 H 136/107 H 98 12/11/19 08:04 98.4 F 128 H 16 120/78 91 12/11/19 07:05 87 L 12/11/19 07:04 125 H 21 139/101 H 98 12/11/19 07:03 132 H 21 93 12/11/19 06:00 120 H 22 134/87 96 12/11/19 05:00 111 H 22 138/90 95 12/11/19 04:11 130 H 146/92 H 12/11/19 04:00 98.1 F 125 H 20 146/92 H 96 PG Care Time/CCT Total # of Minutes Spent Total Time Spent with Patient: Total time spent is greater than 50% in coordination of care (as documented) at patient's floor/unit and/or counseling patient:
--- NOTE | 2019-12-11 16:14 | Hospitalist Progress Note ---
Date of Service December 11, 2019 Assessment & Plan (1) Acute respiratory failure with hypoxia: multifactorial likely some pneumonitis, could be alveolar hemorrhage also with degree of pulmonary edema, likely some acute heart failure with preserved EF due to Afib RVR procalcitonin normal so antibiotics stopped continue on Solu Medrol 40 TID continue Lasix 40mg IV daily to dry to keep lungs dry continue to hold Eliquis, continues to have hemoptysis continue high flow nasal canula in the ICU ideally would need bronchoscopy but he is requiring too much oxygen and the patient is DNI, DNR serology studies sent by pulmonary, look for auto-immune causes of lung disease will take days to return (2) Pneumonitis: continue treatment with Solu Medrol 40 q8 last admission he was started on Prednisone for suspected pneumonitis could be due to recent chemo but unclear ideally would need bronch but requiring too much oxygen (3) Acute heart failure with preserved ejection fraction: pulmonary edema likely due to rapid HR causing poor forward flow continue Lasix 40mg IV daily monitor Cr, stable today electrolytes stable (4) Prostate cancer metastatic to bone: Continue following up with oncology. currently on Lupron, got a shot 12/10 discussed with patient and that it is highly unlikely he will ever get chemotherapy again can follow up with Dr. Thomas if he improves from pulmonary standpoint will consult palliative care to see on Saturday to discuss goals of care he would like help with pain control from bone mets (5) Atrial fibrillation: in RVR, on Diltiazem drip at 15mg/hr, still with RVR metoprolol added, titrated up to 25mg QID today, still with tachycardia but better cardiology following no anticoagulation due to hemoptysis was on Eliquis prior for history of DVT/PE (6) Anemia: Anemia of chronic disease due to metastatic prostate cancer to the bones. Hb is stable today at 9.7 (7) COPD (chronic obstructive pulmonary disease) case management patient: continue Solu Medrol, Elizabethb (8) Chronic kidney disease (CKD) stage G3b/A1, moderately decreased glomerular filtration rate (GFR) between 30-44 mL/min/1.73 square meter and albuminuria creatinine ratio less than 30 mg/g: Cr is at baseline at 1.75 continue to monitor while on Lasix he is hypervolemic on exam and needs the Lasix K is 4.8 (9) Obstructive sleep apnea: Continue CPAP or BiPAP for acute respiratory failure and as night as needed. (10) Coronary artery disease: no chest pain troponin continues to be slightly high at 2 represents type II [place] due to afib with RVR, this is not an acute coronary event, just demand ischemia has not really trended up or down cardiology following (11) Hypercholesteremia: (12) Hypertension: Continue monitoring. As per ICU team (13) Sepsis: no signs of sepsis no current infection antibiotics stopped Subjective patient continues to feel really short of breath, maybe a little better than yesterday but not much discussed that he will not get bronchoscopy, too dangerous he asked me if he thought he would ever get more chemotherapy and I told him that it was highly unlikely his lungs are inflamed, bleeding, any further chemo would make him worse we discussed that he likely has a terminal condition steroids doing little to help breathing, still with hemoptysis, HR in the 120- 140 range despite Diltiazem and metoprolol still with pulmonary edema his was at the bedside, he is open to talking with palliative care on Saturday, especially for options for pain control, has a lot of bone pain from prostate CA reviewed labs, WBC 15k, Hb 9.7, ESR 66, Cr 1.75, procalcitonin 0.15 serology studies sent today by pulmonary medicine, will take days to return discussed with Dr. Mckeon, patient will remain in ICU due to hypoxia, requiring high flow nasal canula Review of Systems Review of Systems: All systems reviewed & are unremarkable except as noted in HPI & below Constitutional: + fatigue and + weakness; no fever and no chills Respiratory: + cough, + chest congestion, + dyspnea, + hemoptysis and + sputum production; no pain with cough and no wheezing Cardiovascular: + dyspnea and + edema; no chest pain and no syncope Gastrointestinal: no abdominal pain, no nausea, no vomiting, no constipation and no diarrhea/loose stools Physical Exam Constitutional: well developed, well nourished, + ill appearing and + obese Eyes: PERRL, conjunctivae normal, anicteric sclerae ENMT: external ear and nose normal, oropharynx normal Neck: trachea midline, no thyromegaly Respiratory: + labored breathing, + uses accessory muscles and + cough Auscultation: + crackles (bilaterally) Cardiovascular: Rate/Rhythm: + tachycardic and + irregularly irregular Heart Sounds: normal S1 and normal S2; no murmur Vessels: no JVD Extremities: normal capillary refill and + edema (pitting to knees bilaterally); no calf tenderness Gastrointestinal (Abdomen): normal bowel sounds, soft, nontender, no hepatosplenomegaly Musculoskeletal: no cyanosis or clubbing, extremities motor strength 5/5 Skin: no rashes, warm and dry (bruising on arms) Neurologic: patellar DTR's 2+ bilat, sensation intact and PERRL, EOMI, accommodation nl, no face palsy, no dysarthria Psychiatric: A+Ox3, euthymic affect Lymphatic: no cervical or axillary lymphadenopathy Results & Data Vital Signs (Past 12 Hours) Vital Signs Temp Pulse Pulse Resp BP BP Pulse Ox 12/11/19 15:13 114 H 22 93 12/11/19 15:05 144 H 18 141/117 H 12/11/19 14:06 138 H 24 108/89 94 12/11/19 13:13 131 H 34 H 124/93 86 L 12/11/19 12:04 127 H 20 121/89 91 12/11/19 11:16 123 H 22 119/96 89 L 12/11/19 11:05 132 H 28 H 96 12/11/19 11:02 132 H 20 91 12/11/19 10:05 133 H 22 125/75 90 12/11/19 09:04 127 H 29 H 136/107 H 98 12/11/19 08:04 36.9 C 128 H 16 120/78 91 12/11/19 07:05 87 L 12/11/19 07:04 125 H 21 139/101 H 98 12/11/19 07:03 132 H 21 93 12/11/19 06:00 120 H 22 134/87 96 12/11/19 05:00 111 H 22 138/90 95 Laboratory Results Laboratory Results - last 24 hr 12/10/19 12/10/19 12/10/19 21:29 21:39 21:39 WBC RBC Hgb Hct MCV MCH MCHC RDW Std Deviation RDW Coeff of Jose Luis Plt Count MPV Immature Gran % (Auto) Neut % (Auto) Lymph % (Auto) Charlton % (Auto) Eos % (Auto) Baso % (Auto) Immature Gran # (Auto) Neut # (Auto) Lymph # (Auto) Charlton # (Auto) Eos # (Auto) Baso # (Auto) Absolute Nucleated RBC Nucleated RBC % (auto) ESR 66 H Sodium Potassium Chloride Carbon Dioxide Anion Gap BUN Creatinine Est Cr Clr Drug Dosing Est GFR ( Amer) Est GFR (Non-Af Amer) BUN/Creatinine Ratio Glucose POC Glucose 211 H Calcium Phosphorus Magnesium Lactate Dehydrogenase Total Creatine Kinase 92 C-Reactive Protein 3.49 H NT-Pro-B Natriuret Pep Procalcitonin Rheumatoid Factor Cycl Citrul Peptide IgG SASCHA Screen Proteinase 3 (PR3) Anti-Neutrophil (Flow) KRISTA-1 Antibody SS-A/Ro Antibody SS-B/La Antibody Sm (Rodriguez) Antibody DOCTOR OF CHIROPRACTIC Antibody Scl-70 Scleroderma Ab Double Strand DNA Ab Glomerular Base Memb Ab U Histopl Galactoman Ag Beta-(1,3)-D-Glucan B-(1,3)-D-Glucan Intrp 12/10/19 12/10/19 12/10/19 21:39 21:39 23:34 WBC RBC Hgb Hct MCV MCH MCHC RDW Std Deviation RDW Coeff of Jose Luis Plt Count MPV Immature Gran % (Auto) Neut % (Auto) Lymph % (Auto) Charlton % (Auto) Eos % (Auto) Baso % (Auto) Immature Gran # (Auto) Neut # (Auto) Lymph # (Auto) Charlton # (Auto) Eos # (Auto) Baso # (Auto) Absolute Nucleated RBC Nucleated RBC % (auto) ESR Sodium Potassium Chloride Carbon Dioxide Anion Gap BUN Creatinine Est Cr Clr Drug Dosing Est GFR ( Amer) Est GFR (Non-Af Amer) BUN/Creatinine Ratio Glucose POC Glucose 244 H Calcium Phosphorus Magnesium Lactate Dehydrogenase Total Creatine Kinase C-Reactive Protein NT-Pro-B Natriuret Pep Procalcitonin Rheumatoid Factor Pending Cycl Citrul Peptide IgG < 0.40 SASCHA Screen Proteinase 3 (PR3) Pending Anti-Neutrophil (Flow) Pending KRISTA-1 Antibody SS-A/Ro Antibody Pending SS-B/La Antibody Pending Sm (Rodriguez) Antibody DO[employer] OF CHIROPRACTIC Antibody Pending Scl-70 Scleroderma Ab Pending Double Strand DNA Ab Glomerular Base Memb Ab Pending U Histopl Galactoman Ag Beta-(1,3)-D-Glucan B-(1,3)-D-Glucan Intrp 12/11/19 12/11/19 12/11/19 04:14 04:24 04:30 WBC 15.76 H RBC 3.45 L Hgb 9.7 L Hct 32.1 L MCV 93.0 MCH 28.1 MCHC 30.2 L RDW Std Deviation 62.6 H RDW Coeff of Jose Luis 19.0 H Plt Count 338 MPV 9.7 Immature Gran % (Auto) 0.5 Neut % (Auto) 94.4 Lymph % (Auto) 2.9 Charlton % (Auto) 2.1 Eos % (Auto) 0.0 Baso % (Auto) 0.1 Immature Gran # (Auto) 0.08 H Neut # (Auto) 14.88 H Lymph # (Auto) 0.46 L Charlton # (Auto) 0.33 Eos # (Auto) 0.00 Baso # (Auto) 0.01 Absolute Nucleated RBC 0.04 H Nucleated RBC % (auto) 0.3 ESR Sodium Potassium Chloride Carbon Dioxide Anion Gap BUN Creatinine Est Cr Clr Drug Dosing Est GFR ( Amer) Est GFR (Non-Af Amer) BUN/Creatinine Ratio Glucose POC Glucose 173 H Calcium Phosphorus Magnesium Lactate Dehydrogenase Total Creatine Kinase C-Reactive Protein NT-Pro-B Natriuret Pep Procalcitonin Rheumatoid Factor Cycl Citrul Peptide IgG SASCHA Screen Pending Proteinase 3 (PR3) Anti-Neutrophil (Flow) KRISTA-1 Antibody Pending SS-A/Ro Antibody SS-B/La Antibody Sm (Ordriguez) Antibody Pending DO[employer] OF CHIROPRACTIC Antibody Scl-70 Scleroderma Ab Double Strand DNA Ab Pending Glomerular Base Memb Ab U Histopl Galactoman Ag Beta-(1,3)-D-Glucan B-(1,3)-D-Glucan Intrp 12/11/19 12/11/19 12/11/19 04:30 04:30 04:30 WBC RBC Hgb Hct MCV MCH MCHC RDW Std Deviation RDW Coeff of Jose Luis Plt Count MPV Immature Gran % (Auto) Neut % (Auto) Lymph % (Auto) Charlton % (Auto) Eos % (Auto) Baso % (Auto) Immature Gran # (Auto) Neut # (Auto) Lymph # (Auto) Charlton # (Auto) Eos # (Auto) Baso # (Auto) Absolute Nucleated RBC Nucleated RBC % (auto) ESR Sodium 137 Potassium 4.9 Chloride 103 Carbon Dioxide 29 Anion Gap 5.0 BUN 49 H Creatinine 1.75 H Est Cr Clr Drug Dosing 44.9 Est GFR ( Amer) 42.6 Est GFR (Non-Af Amer) 36.7 BUN/Creatinine Ratio 28.1 H Glucose 166 H POC Glucose Calcium 8.3 L Phosphorus 4.9 Magnesium 2.6 H Lactate Dehydrogenase Total Creatine Kinase C-Reactive Protein NT-Pro-B Natriuret Pep 2201 H Procalcitonin 0.15 Rheumatoid Factor Cycl Citrul Peptide IgG SASCHA Screen Proteinase 3 (PR3) Anti-Neutrophil (Flow) KRISTA-1 Antibody SS-A/Ro Antibody SS-B/La Antibody Sm (Rodriguez) Antibody DO[employer] OF CHIROPRACTIC Antibody Scl-70 Scleroderma Ab Double Strand DNA Ab Glomerular Base Memb Ab U Histopl Galactoman Ag Beta-(1,3)-D-Glucan B-(1,3)-D-Glucan Intrp 12/11/19 12/11/19 12/11/19 06:46 11:28 12:57 WBC RBC Hgb Hct MCV MCH MCHC RDW Std Deviation RDW Coeff of Jose Luis Plt Count MPV Immature Gran % (Auto) Neut % (Auto) Lymph % (Auto) Charlton % (Auto) Eos % (Auto) Baso % (Auto) Immature Gran # (Auto) Neut # (Auto) Lymph # (Auto) Charlton # (Auto) Eos # (Auto) Baso # (Auto) Absolute Nucleated RBC Nucleated RBC % (auto) ESR Sodium Potassium Chloride Carbon Dioxide Anion Gap BUN Creatinine Est Cr Clr Drug Dosing Est GFR ( Amer) Est GFR (Non-Af Amer) BUN/Creatinine Ratio Glucose POC Glucose 177 H 233 H Calcium Phosphorus Magnesium Lactate Dehydrogenase 721 H Total Creatine Kinase C-Reactive Protein NT-Pro-B Natriuret Pep Procalcitonin Rheumatoid Factor Cycl Citrul Peptide IgG SASCHA Screen Proteinase 3 (PR3) Anti-Neutrophil (Flow) KRISTA-1 Antibody SS-A/Ro Antibody SS-B/La Antibody Sm (Rodriguez) Antibody DOCTOR OF CHIROPRACTIC Antibody Scl-70 Scleroderma Ab Double Strand DNA Ab Glomerular Base Memb Ab U Histopl Galactoman Ag Beta-(1,3)-D-Glucan B-(1,3)-D-Glucan Intrp 12/11/19 12/11/19 12/11/19 12:57 14:20 16:29 WBC RBC Hgb Hct MCV MCH MCHC RDW Std Deviation RDW Coeff of Jose Luis Plt Count MPV Immature Gran % (Auto) Neut % (Auto) Lymph % (Auto) Charlton % (Auto) Eos % (Auto) Baso % (Auto) Immature Gran # (Auto) Neut # (Auto) Lymph # (Auto) Charlton # (Auto) Eos # (Auto) Baso # (Auto) Absolute Nucleated RBC Nucleated RBC % (auto) ESR Sodium Potassium Chloride Carbon Dioxide Anion Gap BUN Creatinine Est Cr Clr Drug Dosing Est GFR ( Amer) Est GFR (Non-Af Amer) BUN/Creatinine Ratio Glucose POC Glucose 250 H Calcium Phosphorus Magnesium Lactate Dehydrogenase Total Creatine Kinase C-Reactive Protein NT-Pro-B Natriuret Pep Procalcitonin Rheumatoid Factor Cycl Citrul Peptide IgG SASCHA Screen Proteinase 3 (PR3) Anti-Neutrophil (Flow) KRISTA-1 Antibody SS-A/Ro Antibody SS-B/La Antibody Sm (Rodriguez) Antibody DOCTOR OF CHIROPRACTIC Antibody Scl-70 Scleroderma Ab Double Strand DNA Ab Glomerular Base Memb Ab U Histopl Galactoman Ag Pending Beta-(1,3)-D-Glucan Pending B-(1,3)-D-Glucan Intrp Pending Diagnostic Findings XR chest 1V portable FINDINGS: Median sternotomy wires. Atherosclerosis of the aortic arch. Cardiac silhouette enlarged. Pulmonary vascular prominence. Elevation of the right hemidiaphragm. Mildly low lung volumes bilaterally. Significant interval increase and diffuse added density of the lungs with superimposed patchy opacities. Trace right pleural effusion may be present. No pneumothorax. Multifocal sclerotic osseous lesions better appreciated on recent CT. Upper abdomen normal. IMPRESSION: 1. Interval worsening of diffuse added density of the lungs with persistent patchy opacities, which could suggest some element of edema superimposed on multifocal pneumonia. 2. Cardiomegaly and volume overload. Medications Administered Current Inpatient Medications Al Hydrox/Mg Hydrox/Simethicone (Maalox) 15 ml PO Q4H PRN PRN Reason: Dyspepsia Stop: 01/08/20 13:48 Albuterol (Duoneb) 3 ml NEB Q4R [facility] Stop: 01/08/20 14:59 Last Admin: 12/11/19 18:58 Dose: 3 ml Documented by: Dextrose (Dextrose 50%) 25 - 50 ml IV UD PRN; Protocol PRN Reason: Hypoglycemia Protocol Stop: 01/08/20 13:48 Diltiazem HCl (Cardizem) 60 mg PO TID [facility] Stop: 01/10/20 13:59 Last Admin: 12/11/19 13:03 Dose: 60 mg Documented by: Fenofibrate (Fenofibrate) 48 mg PO DAILY [facility] Stop: 01/10/20 08:59 Last Admin: 12/11/19 07:54 Dose: 48 mg Documented by: Fish Oil (Hallowell-3 (Purified Fish Oil)) 1 gm PO DAILY [facility] Stop: 01/09/20 08:59 Last Admin: 12/11/19 07:54 Dose: 1 gm Documented by: Gabapentin (Neurontin) 300 mg PO TID [facility] Stop: 01/08/20 13:59 Last Admin: 12/11/19 13:03 Dose: 300 mg Documented by: Glucagon (Glucagen) 1 mg SQ UD PRN; Protocol PRN Reason: Hypoglycemia Protocol Stop: 01/08/20 13:48 Glucose (Dex4 Glucose) 4 - 8 tabs PO UD PRN; Protocol PRN Reason: Hypoglycemia Protocol Stop: 01/08/20 13:48 Glucose (Glucose 40%) 15 - 30 gm PO UD PRN; Protocol PRN Reason: Hypoglycemia Protocol Stop: 01/08/20 13:48 Diltiazem HCl 125 mg/ Dextrose 125 mls @ 15 mls/hr IV .Q8H20M [facility]; Protocol Stop: 01/08/20 12:29 Last Admin: 12/11/19 19:19 Dose: 15 mg/hr, 15 mls/hr Documented by: Methylprednisolone 40 mg/ (Syringe) 0.64 mls @ 1.5 mls/min IV TID [facility] Stop: 01/08/20 20:59 Last Admin: 12/11/19 13:02 Dose: 1.5 mls/min Documented by: Furosemide 40 mg/ Syringe 4 mls @ 4 mls/min IV DAILY [facility] Stop: 01/11/20 08:59 Trimethoprim/Sulfamethoxazole (576 mg/ Dextrose/ Dextrose) 576 mls @ 384 mls/hr IV Q8H [facility]; Protocol Stop: 12/18/19 13:59 Last Infusion: 12/11/19 16:57 Dose: Infused Documented by: Insulin Aspart (Novolog Flexpen) 0 units SC ACHS [facility] Stop: 01/09/20 16:29 Last Admin: 12/11/19 16:56 Dose: 15 units Documented by: Insulin Aspart (Novolog Flexpen) 0 units SC TODAY@0000,0400 [facility] Stop: 01/10/20 00:00 Last Admin: 12/11/19 04:41 Dose: 3 units Documented by: Insulin Glargine (Lantus Solostar Pen) 0 units SC BID [facility]; Protocol Stop: 01/09/20 20:59 Last Admin: 12/11/19 07:56 Dose: 24 units Documented by: Magnesium Oxide (Mag-Ox) 400 mg PO DAILY [facility] Stop: 01/11/20 08:59 Metoprolol Tartrate (Lopressor) 25 mg PO QID [facility] Stop: 01/10/20 12:59 Last Admin: 12/11/19 16:55 Dose: 25 mg Documented by: Miscellaneous (Carbohydrates For Hypoglycemia) 15 - 30 gm PO UD PRN PRN Reason: Hypoglycemia Protocol Stop: 01/08/20 13:48 Miscellaneous Information (Consult Glycemic Management Pharmacy) 1 ea N/A UD PRN; Protocol PRN Reason: Consult Stop: 01/08/20 14:10 Miscellaneous Information () 1 ea N/A UD PRN PRN Reason: Consult Stop: 01/10/20 13:00 Ondansetron HCl (Zofran Tab) 8 mg PO Q8H PRN PRN Reason: Nausea And Vomiting Stop: 01/08/20 13:48 Oxycodone HCl (Roxicodone Immediate Rel) 5 mg PO QID PRN PRN Reason: Pain Stop: 12/23/19 14:28 Pantoprazole Sodium (Protonix) 40 mg PO DAILY [facility] Stop: 01/09/20 08:59 Last Admin: 12/11/19 07:54 Dose: 40 mg Documented by: Polyethylene Glycol (Miralax Powder Packet) 17 gm PO DAILY PRN PRN Reason: Constipation Stop: 01/08/20 13:48 Prochlorperazine (Compazine) 10 mg PO Q6H PRN PRN Reason: Nausea And Vomiting Stop: 01/08/20 13:48 Tramadol HCl (Ultram) 100 mg PO Q4H PRN PRN Reason: pain Stop: 01/08/20 13:48 Vitamin D (Vitamin D3) 1,000 units PO DAILY [facility] Stop: 01/09/20 08:59 Last Admin: 12/11/19 07:53 Dose: 1,000 units Documented by: PG Care Time/CCT Total # of Minutes Spent Total Time Spent with Patient: Total time spent is greater than 50% in coordination of care (as documented) at patient's floor/unit and/or counseling patient: (1) Anemia Anemia type: unspecified type Qualified Code(s): D64.9 - Anemia, unspecified (2) Atrial fibrillation Atrial fibrillation type: unspecified Qualified Code(s): I48.91 - Unspecified atrial fibrillation
[2019-12-11] MEDS: METOPROLOL TARTRATE 50 MG TAB PO SCH (21:24)
[2019-12-11] MEDS ORDERED: SODIUM CHLOR 7% 4 ML NEB NEB ONE (22:45)
[2019-12-12] MEDS: ALBUT/IPRATROP 3MG/0.5MG NEB 3 ML VIAL NEB SCH ×6 (02:18→23:44)
[2019-12-12] MEDS: INSULIN ASPART 100 UNITS/ML 3 ML PEN SC SCH ×6 (03:29→23:55)
[2019-12-12 04:33] LABS: Hematocrit (blood only) 29.3 % (42-52); Hemoglobin 9.2 g/dL (14.0-18.0); Immature Granulocytes # (auto) 0.12 K/uL (0.00-0.02); Immature Granulocytes % (auto) 0.7 %; Lymphocytes # (auto) 0.67 K/uL (1.2-3.4); Lymphocytes % (auto) 3.7 %; Mean Corpuscular Hemoglobin 28.8 pg (25-34); Mean Corpuscular Hgb Conc 31.4 g/dL (32-36); Mean Corpuscular Volume 91.8 fL (80-100); Mean Platelet Volume 9.4 fL (7.4-10.4); Monocytes # (auto) 0.54 K/uL (0.11-0.59); Neutrophils # (auto) 16.62 K/uL (1.4-6.5); Neutrophils % (auto) 92.6 %; Nucleated RBC # (auto) 0.08 K/uL (0-0); Nucleated RBC % (auto) 0.5 %; Platelet Count 318 K/uL (130-400); RDW Coefficient of Variation 18.6 % (11.5-14.5); RDW Standard Deviation 61.5 fL (36.4-46.3); Red Blood Count 3.19 M/uL (4.7-6.1); White Blood Count 17.95 K/uL (4.8-10.8)
[2019-12-12 05:00] LABS: BUN Creatinine Ratio 28.6 (10-20); Creatinine Clr Calc Pharmacy 35.1 ml/min; Est GFR (African American) 31.1; Est GFR (Non-African American) 26.8; Magnesium 2.7 mg/dl (1.8-2.4); Phosphorus 4.8 mg/dl (2.5-4.9); Potassium 5.1 mmol/L (3.5-5.1)
[2019-12-12] MEDS: TRIMETH IV SCH ×2 (05:57→14:19)
[2019-12-12] MEDS: SULFA IV SCH ×2 (05:57→14:19)
[2019-12-12] MEDS: DEXTROSE 5% IV SCH ×2 (05:57→14:19)
[2019-12-12] MEDS: methylPREDNISolone 40 MG in SYRINGE 0 ML IV SCH (07:53)
[2019-12-12] MEDS: dilTIAZem HCL 30 MG TAB PO SCH ×3 (07:53→20:23)
[2019-12-12] MEDS: OMEGA-3 (PURIFIED FISH OIL) 1 GM CAP PO SCH (07:54)
[2019-12-12] MEDS: CHOLECALCIFEROL 1,000 UNITS 25 MCG TAB PO SCH (07:54)
[2019-12-12] MEDS: METOPROLOL TARTRATE 50 MG TAB PO SCH ×4 (07:54→20:23)
[2019-12-12] MEDS: GABAPENTIN 300 MG CAP PO SCH ×3 (07:54→20:24)
[2019-12-12] MEDS: PANTOprazole 40 MG TAB PO SCH (07:55)
[2019-12-12] MEDS: MAGNESIUM OXIDE 400 MG TAB PO SCH (07:55)
[2019-12-12] MEDS: FENOFIBRATE NANOCRYSTALLIZED 48 MG TABLET PO SCH (07:55)
[2019-12-12] MEDS: dilTIAZem HCL 125 MG in DEXTROSE 5% 100 ML IV SCH ×3 (07:55→15:12)
[2019-12-12] MEDS: INSULIN GLARGINE SOLOSTAR 100 UNITS/ML 3 ML PEN SC SCH ×2 (07:56→20:24)
[2019-12-12] MEDS ORDERED: FUROSEMIDE 40 MG in SYRINGE 0 ML IV SCH (09:00)
--- NOTE | 2019-12-12 09:05 | Hospitalist Progress Note ---
Date of Service December 12, 2019 Assessment & Plan (1) Acute respiratory failure with hypoxia: Patient is off antibiotics as pneumonia been ruled out. Patient being treated for CHF. Continue high flow nasal cannula as ordered. Further documentation as below. (2) Pneumonitis: Initially treated with vancomycin and Zosyn, this was discontinued after procalcitonin was negative. Patient is currently continued on IV steroids for possible pneumonitis. Laboratory work to rule out autoimmune/vasculitis pathology has been sent and is still pending. (3) Acute heart failure with preserved ejection fraction: Patient currently being diuresed with Lasix 40 mg daily. Patient has been having good diuresis but I did note worsening of his renal function today with BUN/creatinine of 49/1.75 yesterday and six 5/2.27 today. Consideration to decreasing Lasix although imaging does still show significant alveolar infiltrates. (4) Prostate cancer metastatic to bone: Continue following up with oncology. currently on Lupron, got a shot 12/10 Appreciate previous input, patient may be moving towards palliative care, will defer to project program manager and oncologist in this respect. (5) Atrial fibrillation: in RVR, on Diltiazem drip at 10mg/hr, still with RVR metoprolol added, titrated up to 25mg QID today, still with tachycardia but better cardiology following Previously on Eliquis although patient is having hemoptysis, this is been held. Heart rate is 108 on last measure. (6) Anemia: Anemia of chronic disease due to metastatic prostate cancer to the bones. Hb is stable today at 9.2 (7) COPD (chronic obstructive pulmonary disease) case management patient: continue Solu Medrol, Duoneb (8) Chronic kidney disease (CKD) stage G3b/A1, moderately decreased glomerular filtration rate (GFR) between 30-44 mL/min/1.73 square meter and albuminuria creatinine ratio less than 30 mg/g: Creatinine elevated today, I acute kidney injury, possibly secondary to diuresis. (9) Obstructive sleep apnea: Continue CPAP or BiPAP for acute respiratory failure and as night as needed. (10) Coronary artery disease: no chest pain troponin continues to be slightly high at 2 represents type II [place] due to afib with RVR, this is not an acute coronary event, just demand ischemia has not really trended up or down cardiology following (11) Hypercholesteremia: (12) Hypertension: Continue monitoring. As per ICU team (13) Sepsis: no signs of sepsis no current infection antibiotics stopped Subjective Patient seen and examined. He remains on 40% FiO2 high flow nasal cannula. He does seem to be comfortable with this. He does have a mild cough with pink and blood-tinged sputum. He denies any chest pain. Patient was able to finish most of his breakfast. Patient is a good diuresis of over 2 L but I did note an increase in his creatinine today. Physical Exam Constitutional: + ill appearing and comfortable; no acute distress Respiratory: Auscultation: + diminished lung sounds and + crackles (Faint at bases, somewhat limited exam); no rales, no rhonchi and no wheezes Cardiovascular: Rate/Rhythm: regular rate and regular rhythm Heart Sounds: normal S1 and normal S2 Gastrointestinal (Abdomen): Inspection/Auscultation: abdomen normal to inspection Percussion/Palpation: abdomen nontender, no guarding, abdomen not rigid, + abdomen not soft and no hepatosplenomegaly Skin: no rashes, warm and dry Neurologic: PERRL, EOMI, accommodation nl, no face palsy, no dysarthria Psychiatric: A+Ox3, euthymic affect Results & Data Vital Signs (Past 12 Hours) Vital Signs Temp Pulse Pulse Resp BP Pulse Ox 12/12/19 07:37 108 H 24 90 12/12/19 06:00 102 H 22 150/79 H 89 L 12/12/19 05:00 113 H 26 H 91 12/12/19 04:00 74 20 154/77 H 90 12/12/19 03:00 66 25 H 126/66 96 12/12/19 02:19 66 26 H 94 12/12/19 02:00 64 22 147/64 H 96 12/12/19 01:03 64 39 H 95 12/12/19 01:00 68 29 H 142/63 H 91 12/12/19 00:00 36.4 C L 92 H 32 H 113/72 89 L 12/11/19 23:21 100 H 24 89 L 12/11/19 22:48 76 27 H 91 12/11/19 22:00 109 H 28 H 141/90 H 89 L 12/11/19 21:45 115 H 24 89 L 12/11/19 21:00 115 H 35 H 132/95 86 L PG Care Time/CCT Total # of Minutes Spent Total Time Spent with Patient: Total time spent is greater than 50% in coordination of care (as documented) at patient's floor/unit and/or counseling patient: (1) Atrial fibrillation Atrial fibrillation type: unspecified Qualified Code(s): I48.91 - Unspecified atrial fibrillation (2) Anemia Anemia type: unspecified type Qualified Code(s): D64.9 - Anemia, unspecified
--- NOTE | 2019-12-12 09:52 | Critical Care Progress Note ---
Date of Service December 12, 2019 Assessment & Plan (1) Acute hypoxemic respiratory failure: Patient continues to be hypoxemic requiring high amounts of oxygen. I have increased his Solu-Medrol 125 mg 3 times daily. We also started him on Bactrim yesterday for the possibility of P ZACHARIAH. His LDH is elevated, but it is nonspecific. We did obtain an induced fungal sputum smear overnight which has been negative thus far. He is in renal failure. I have sent for autoimmune serologies to evaluate for pulmonary renal syndrome. The only way I would consider bronchoscopy at this time is with intubation. At this time he is a DNR/DNI. Holding broad-spectrum antibiotics as there is no clear signs of bacterial infection. I will order for repeat chest x-ray. Atrial fibrillation is better controlled. He is on 5 mg of IV diltiazem continuously. We are titrating up his metoprolol p.o. and p.o. diltiazem. Overall prognosis is very poor. I have personally spent 30 minutes of critical care time in the direct management of this patient. This is a life/limb threatening event. This includes time spent evaluating patient, direct bedside care, chart review, placing orders, interpretation of diagnostic studies, discussion with consultants, patient, and family members, as well as other required patient management activities. This time is exclusive of all separately billable procedures, and teaching time and separate from and in addition to any other critical care service time. Thank you for allowing us to participate in the care of this patient. (2) Elevated troponin: (3) Atrial fibrillation with rapid ventricular response: (4) Hyperkalemia: (5) Acute kidney injury: (6) Aortic stenosis: (7) Hemoptysis: Subjective Patient had more significant hemoptysis overnight. Currently on BiPAP. I have him on 11/08. He is on 60% FiO2. is at the bedside. He denies any chest pain. No nausea or vomiting. No fevers. Physical Exam Constitutional: WD/WN, vitals as above Eyes: PERRL, conjunctivae normal, anicteric sclerae ENMT: external ear and nose normal, oropharynx normal Neck: normal visual inspection Gastrointestinal (Abdomen): normal bowel sounds, soft, nontender, no hepatosplenomegaly Musculoskeletal: no cyanosis or clubbing, extremities motor strength 5/5 Neurologic: PERRL, EOMI, accommodation nl, no face palsy, no dysarthria Psychiatric: A+Ox3, euthymic affect Lymphatic: no cervical or axillary lymphadenopathy Results & Data Vital Signs (Past 12 Hours) Vital Signs Temp Pulse Pulse Resp BP Pulse Ox 12/12/19 07:37 108 H 24 90 12/12/19 06:00 102 H 22 150/79 H 89 L 12/12/19 05:00 113 H 26 H 91 12/12/19 04:00 74 20 154/77 H 90 12/12/19 03:00 66 25 H 126/66 96 12/12/19 02:19 66 26 H 94 12/12/19 02:00 64 22 147/64 H 96 12/12/19 01:03 64 39 H 95 12/12/19 01:00 68 29 H 142/63 H 91 12/12/19 00:00 97.5 F L 92 H 32 H 113/72 89 L 12/11/19 23:21 100 H 24 89 L 12/11/19 22:48 76 27 H 91 12/11/19 22:00 109 H 28 H 141/90 H 89 L Coding Level of Care Code Critical Care 1st 30-74 mins Diagnoses Acute hypoxemic respiratory failure J96.01 Elevated troponin R79.89 Atrial fibrillation with rapid ventricular response I48.91 Hyperkalemia E87.5 Acute kidney injury N17.9 Aortic stenosis I35.0 Hemoptysis R04.2 Time Spent (min) 30
--- NOTE | 2019-12-12 11:10 | XRay Report ---
XR chest 1V portable HISTORY: worsening hypoxemia COMPARISON: Chest 12/11/2019. FINDINGS: Progressive interstitial and vascular thickening consistent with worsening pulmonary edema. No pneumothorax. The heart remains enlarged. There are poststernotomy changes. No pleural effusions. IMPRESSION: Progressive pulmonary edema. ACT 112: Negative or not required by law. Electronically signed by: Lars Chowdhury M.D. 12/12/2019 11:09 AM
--- NOTE | 2019-12-12 13:29 | Pharmacy Report ---
Pharmacy Glycemic Short Note 2 - Date of Service December 12, 2019 - Glycemic Short BSG Results (Last 24 hours): 12/11/19 12/11/19 12/11/19 16:29 21:20 23:18 Glucose POC Glucose 250 H 184 H 279 H 12/12/19 12/12/19 12/12/19 03:23 04:12 07:25 Glucose 141 H POC Glucose 153 H 209 H 12/12/19 11:23 Glucose POC Glucose 145 H OUTPATIENT ANTIDIABETIC REGIMEN: * Lantus 36 units daily * Lispro per scale * A1c 7.3% ASSESSMENT: 12/12 * Patient is currently receiving an average of 125 units of insulin per day * 54 units of basal insulin * 72 units of prandial/correctional insulin * BSGs ranging 141- 279 over the past 24hrs * Risk factors for insulin resistance may increase over the next 24hrs since steroid dosing increasing from 40 mg TID to 125 mg TID; however, current dose is already above the daily threshold for effects on glycemic control * Anticipating insulin regimen will need increased for the next 24hrs due to elevated postprandial BSGs yesterday but will hold off on adjusting further unless a BSG rise is seen with increase in steroids 12/11 * Glycemic control improving slightly * Over the last 24 hrs 104 units SQ insulin administered * Fasting AM BSG 177 this AM with 50 units basal + 15 units correction given overnight - will slightly uptitrate basal dosing scale * Novolog doses may need to be slightly larger as well. Will adjust CF and CR. * Plan to continue to check BSGs overnight for additional correctional insulin 12/10 * Type 2 diabetic admitted for hypoxic resp failure, a fib RVR, SAMANTHA, hemoptysis * Patient was admitted to the hospital recently, that admission was reviewed for steroid use / insulin doses / BSGs * SQ Basal/Bolus regimen initiated yesterday using data from this prior admission where it appeared patient would require > 100 units/day on current steroid regimen to achieve glycemic targets * Fasting BSG down to 161 this AM w/ 55 units Lantus + 9 units Novolog correction on board * Diet was advanced this AM (prelunch hyperglycemia due to late lunch arrival and lack of prandial insulin) * Steroids continue today; insulin doses we only be adjusted slightly as diet has been advanced PLAN FOR INPATIENT GLYCEMIC CONTROL: * Basal insulin - no change * Lantus SQ BID * 0 units if less than 110 * 18 units if 110-139 * 30 units if BSG greater than 140 * Bolus insulin - tighten CR * NovoLog per scale ACHS + 0000,0400 * Goal Range: Low 110 mg/dL - High 140 mg/dL * Correction Factor: 12 mg/dL/unit * Nutritional / Prandial insulin per carb ratio of 1 unit per 3 grams CHO consumed (can plan to tighten further to 2.5 if BSGs rise from increase in steroid dose) PLAN FOR DISCHARGE: * to be determined
[2019-12-12] MEDS ORDERED: FUROSEMIDE 40 MG in SYRINGE 0 ML IV ONE (14:15)
[2019-12-12] MEDS: methylPREDNISolone 125 MG in SYRINGE 0 ML IV SCH ×2 (14:19→20:22)
[2019-12-12 18:26] LABS: BUN Creatinine Ratio 27.5 (10-20); Calcium 8.2 mg/dl (8.5-10.1); Est GFR (African American) 25.2; Est GFR (Non-African American) 21.8; Potassium 5.3 mmol/L (3.5-5.1)
[2019-12-12] MEDS: ALUMINUM/MAGNESIUM SUSP 30 ML UDC PO PRN (19:53)
[2019-12-13] MEDS: ALBUT/IPRATROP 3MG/0.5MG NEB 3 ML VIAL NEB SCH ×6 (03:45→23:45)
[2019-12-13] MEDS: INSULIN ASPART 100 UNITS/ML 3 ML PEN SC SCH ×5 (04:08→20:58)
[2019-12-13 04:49] LABS: Hematocrit (blood only) 29.9 % (42-52); Hemoglobin 9.4 g/dL (14.0-18.0); Immature Granulocytes # (auto) 0.06 K/uL (0.00-0.02); Immature Granulocytes % (auto) 0.4 %; Lymphocytes # (auto) 0.56 K/uL (1.2-3.4); Lymphocytes % (auto) 3.9 %; Mean Corpuscular Hemoglobin 28.5 pg (25-34); Mean Corpuscular Hgb Conc 31.4 g/dL (32-36); Mean Corpuscular Volume 90.6 fL (80-100); Mean Platelet Volume 9.7 fL (7.4-10.4); Monocytes # (auto) 0.42 K/uL (0.11-0.59); Monocytes % (auto) 2.9 %; Neutrophils # (auto) 13.31 K/uL (1.4-6.5); Neutrophils % (auto) 92.8 %; Nucleated RBC % (auto) 0.7 %; Platelet Count 293 K/uL (130-400); RDW Coefficient of Variation 18.8 % (11.5-14.5); RDW Standard Deviation 61.5 fL (36.4-46.3); White Blood Count 14.35 K/uL (4.8-10.8)
[2019-12-13 05:08] LABS: Alanine Aminotransferase 23 U/L (12-78); Albumin Level 2.9 gm/dl (3.4-5.0); Aspartate Aminotransferase 33 U/L (15-37); BUN Creatinine Ratio 27.8 (10-20); Bilirubin Direct < 0.1 mg/dl (0-0.2); Blood Urea Nitrogen 77 mg/dl (7-18); Carbon Dioxide 27 mmol/L (21-32); Chloride 100 mmol/L (98-107); Creatinine Clr Calc Pharmacy 28.3 ml/min; Est GFR (African American) 24.4; Est GFR (Non-African American) 21.1; Glucose 91 mg/dl (70-99); Magnesium 2.8 mg/dl (1.8-2.4); Potassium 5.4 mmol/L (3.5-5.1); Sodium 136 mmol/L (136-145)
[2019-12-13 05:10] LABS: Alkaline Phosphatase 382 U/L (45-117); Bilirubin,Total 0.3 mg/dl (0.2-1); Total Protein 6.3 gm/dl (6.4-8.2)
[2019-12-13 06:49] LABS: Phosphorus 5.8 mg/dl (2.5-4.9)
--- NOTE | 2019-12-13 07:21 | XRay Report ---
XR chest 1V portable CLINICAL HISTORY: Abnormal chest x-ray. Follow-up study. Hypoxemia. COMPARISON STUDY: 12/12/2019 FINDINGS: The heart remains enlarged. There are diffuse bilateral airspace opacities,[the findings li tarik represent pulmonary edema although a bilateral infectious/inflammatory processes could appear si milar. Small pleural effusions are suspected. IMPRESSION: Persistent pulmonary edema pattern. ACT 112: Negative or not required by law. Electronically signed by: Reji Grimm M.D. 12/13/2019 7:20 AM
[2019-12-13] MEDS: dilTIAZem HCL 30 MG TAB PO SCH ×3 (07:41→20:55)
[2019-12-13] MEDS: CHOLECALCIFEROL 1,000 UNITS 25 MCG TAB PO SCH (07:41)
[2019-12-13] MEDS: GABAPENTIN 300 MG CAP PO SCH ×3 (07:41→20:56)
[2019-12-13] MEDS: METOPROLOL TARTRATE 50 MG TAB PO SCH ×4 (07:41→20:55)
[2019-12-13] MEDS: FENOFIBRATE NANOCRYSTALLIZED 48 MG TABLET PO SCH (07:41)
[2019-12-13] MEDS: OMEGA-3 (PURIFIED FISH OIL) 1 GM CAP PO SCH (07:41)
[2019-12-13] MEDS: methylPREDNISolone 125 MG in SYRINGE 0 ML IV SCH ×4 (07:41→20:56)
[2019-12-13] MEDS: PANTOprazole 40 MG TAB PO SCH (07:41)
[2019-12-13] MEDS: INSULIN GLARGINE SOLOSTAR 100 UNITS/ML 3 ML PEN SC SCH ×2 (07:46→20:57)
--- NOTE | 2019-12-13 08:49 | Hospitalist Progress Note ---
Date of Service December 13, 2019 Assessment & Plan (1) Acute respiratory failure with hypoxia: Patient is off antibiotics as pneumonia been ruled out. I did discuss with the unix systems administrator, patient was briefly on Bactrim as well for possible P ZACHARIAH. This is since been discontinued as there is no improvement in patient's renal function as worsened. Patient being treated for CHF. Continue high flow nasal cannula as ordered. Further documentation as below. I discussed with unix systems administrator, agree with his assessment that there may not be much more to offer this patient in terms overall care. Will need to discuss palliative care and hospice over the next 24 hours patient continues to show no sign of improvement. (2) Pneumonitis: Initially treated with vancomycin and Zosyn, this was discontinued after procalcitonin was negative. Patient is currently continued on IV steroids for possible pneumonitis. Laboratory work to rule out autoimmune/vasculitis pathology has been sent and is still pending. (3) Acute heart failure with preserved ejection fraction: Patient currently being diuresed with Lasix 40 mg daily. Bactrim as noted above. Renal function is stabilized but remains poor. Lasix was decreased to 40 mg once a day and fluid balance essentially even with only 22 cc negative. (4) Prostate cancer metastatic to bone: Continue following up with oncology. currently on Lupron, got a shot 12/10 Appreciate previous input, patient may be moving towards palliative care, will defer to unix systems administrator and oncologist in this respect. (5) Atrial fibrillation: in RVR, diltiazem drip and previously been stopped. metoprolol added, titrated again to 50 mg 4 times daily, remains tachycardic. Patient is also on diltiazem immediate release 90 mg 3 times daily. cardiology following Previously on Eliquis although patient is having hemoptysis, this is been held. (6) Anemia: Anemia of chronic disease due to metastatic prostate cancer to the bones. Hb is stable today at 9.4 (7) COPD (chronic obstructive pulmonary disease) case management patient: continue Solu Medrol, Duoneb (8) Chronic kidney disease (CKD) stage G3b/A1, moderately decreased glomerular filtration rate (GFR) between 30-44 mL/min/1.73 square meter and albuminuria creatinine ratio less than 30 mg/g: Creatinine stable at 2.77. Continue to monitor. (9) Obstructive sleep apnea: Continue CPAP or BiPAP for acute respiratory failure and as night as needed. (10) Coronary artery disease: no chest pain troponin continues to be slightly high at 2 represents type II MN due to afib with RVR, this is not an acute coronary event, just demand ischemia has not really trended up or down cardiology following (11) Hypercholesteremia: (12) Hypertension: Continue monitoring. As per ICU team (13) Sepsis: no signs of sepsis no current infection antibiotics stopped Subjective Patient seen and examined. Now on 100% FiO2 with flow rate of 40 L a minute. Patient feels slightly more shortness of breath despite this. O2 sats in the high 80slow 90s up a poor waveform on monitor. Patient is conversational. Of note, patient's heart rate is elevated in the [id number], appears to be atrial fibrillation on monitor. Physical Exam Constitutional: cooperative Minimal conversational shortness of breath Neck: trachea midline, no thyromegaly Respiratory: Auscultation: + wheezes; no crackles, no rales and no rhonchi Cardiovascular: Rate/Rhythm: regular rate, + tachycardic and + irregularly irregular Heart Sounds: normal S1 and normal S2 Gastrointestinal (Abdomen): Inspection/Auscultation: abdomen normal to inspection Percussion/Palpation: abdomen soft; abdomen nontender, no guarding, abdomen not rigid and no hepatosplenomegaly Skin: no rashes, warm and dry Results & Data Vital Signs (Past 12 Hours) Vital Signs Temp Pulse Pulse Pulse Resp BP Pulse Ox 12/13/19 08:06 128 H 25 H 127/79 89 L 12/13/19 07:32 141 H 21 90 12/13/19 07:24 116 H 16 147/85 H 84 L 12/13/19 06:00 112 H 16 90 12/13/19 05:55 117 H 26 H 89 L 12/13/19 05:00 105 H 18 111/68 98 12/13/19 04:10 106 H 106 H 27 H 88 L 12/13/19 04:00 36.5 C 103 H 26 H 143/79 H 97 12/13/19 03:00 103 H 18 123/82 91 12/13/19 02:00 109 H 15 109/75 92 12/13/19 01:00 98 H 28 H 131/97 93 12/13/19 00:20 108 H 25 H 91 12/13/19 00:00 36.5 C 98 H 23 123/88 93 12/12/19 23:45 105 H 22 93 12/12/19 23:00 104 H 18 153/115 H 96 12/12/19 22:00 121 H 18 132/69 91 12/12/19 21:00 113 H 22 140/60 95 PG Care Time/CCT Total # of Minutes Spent Total Time Spent with Patient: Total time spent is greater than 50% in coordination of care (as documented) at patient's floor/unit and/or counseling patient: (1) Atrial fibrillation Atrial fibrillation type: unspecified Qualified Code(s): I48.91 - Unspecified atrial fibrillation (2) Anemia Anemia type: unspecified type Qualified Code(s): D64.9 - Anemia, unspecified
--- NOTE | 2019-12-13 09:10 | Pharmacy Report ---
Pharmacy Glycemic Short Note 2 - Date of Service December 13, 2019 - Glycemic Short BSG Results (Last 24 hours): 12/12/19 12/12/19 12/12/19 11:23 16:24 17:55 Glucose 138 H POC Glucose 145 H 104 H 12/12/19 12/12/19 12/13/19 20:20 23:47 04:00 Glucose POC Glucose 80 84 100 H 12/13/19 12/13/19 04:14 07:08 Glucose 91 POC Glucose 106 H OUTPATIENT ANTIDIABETIC REGIMEN: * Lantus 36 units daily * Lispro per scale * A1c 7.3% ASSESSMENT: 12/13 * Patient is currently receiving an average of 80 units of insulin per day * 30 units of basal insulin * 52 units of prandial/correctional insulin * BSGs ranging 80- 145 over the past 24hrs * Insulin requirements have decreased significantly, even with increase in steroid dose. This is likely a result of rising SCr, which will alter the PD of the insulin. Palliative care and hospice may be discussed in the near future if patient continues to not improve. * Anticipating insulin regimen will need decreased for the next 24hrs d/t : * AM Fasting BSG = 91; therefore Basal insulin needs decreased - ordered scale will allow for this. * BSGs trending downwards throughout the day; therefore Loosen CF/CR * BSG now up to 219 prior to lunch. Will tighten CR but not as aggressive as previously ordered. Will order a one time dose of Lantus since dose was held last night and this AM due to lower BSGs. 12/12 * Patient is currently receiving an average of 125 units of insulin per day * 54 units of basal insulin * 72 units of prandial/correctional insulin * BSGs ranging 141- 279 over the past 24hrs * Risk factors for insulin resistance may increase over the next 24hrs since steroid dosing increasing from 40 mg TID to 125 mg TID; however, current dose is already above the daily threshold for effects on glycemic control * Anticipating insulin regimen will need increased for the next 24hrs due to elevated postprandial BSGs yesterday but will hold off on adjusting further unless a BSG rise is seen with increase in steroids 12/11 * Glycemic control improving slightly * Over the last 24 hrs 104 units SQ insulin administered * Fasting AM BSG 177 this AM with 50 units basal + 15 units correction given overnight - will slightly uptitrate basal dosing scale * Novolog doses may need to be slightly larger as well. Will adjust CF and CR. * Plan to continue to check BSGs overnight for additional correctional insulin 12/10 * Type 2 diabetic admitted for hypoxic resp failure, a fib RVR, SAMANTHA, hemoptysis * Patient was admitted to the hospital recently, that admission was reviewed for steroid use / insulin doses / BSGs * SQ Basal/Bolus regimen initiated yesterday using data from this prior admission where it appeared patient would require > 100 units/day on current steroid regimen to achieve glycemic targets * Fasting BSG down to 161 this AM w/ 55 units Lantus + 9 units Novolog correction on board * Diet was advanced this AM (prelunch hyperglycemia due to late lunch arrival and lack of prandial insulin) * Steroids continue today; insulin doses we only be adjusted slightly as diet has been advanced PLAN FOR INPATIENT GLYCEMIC CONTROL: * Basal insulin - continue same scale but loosen BSG parameters and provide one time dose of 18 units at lunch today (since AM dose held) * Lantus SQ BID * 0 units if less than 140 * 18 units if 140-180 * 30 units if BSG greater than 180 * Bolus insulin - loosen CF/CR * NovoLog per scale ACHS + 00,04 * Goal Range: Low 110 mg/dL - High 140 mg/dL * Correction Factor: 18 mg/dL/unit * Nutritional / Prandial insulin per carb ratio of 1 unit per 4 grams CHO consumed PLAN FOR DISCHARGE: * to be determined
--- NOTE | 2019-12-13 10:28 | Critical Care Progress Note ---
Date of Service December 13, 2019 Assessment & Plan (1) Acute hypoxemic respiratory failure: Patient is going to renal failure this morning. I have stopped the Bactrim. We did empirically start him on Saturday for pneumocystis pneumonia. I think the risks outweigh the benefits at this point of continuing Bactrim. He is also hyperkalemic. I am giving him some IV fluid hydration at 80 mL an hour Normosol. I am increasing his Solu-Medrol to 125 mg every 6. Of note, he did have some degree of interstitial lung disease on a CT scan of his chest in 2017. Currently the interstitial morning groundglass opacities that were seeing now may be a reflection of some progressive interstitial lung disease. However, I do think there is some degree of acute inflammation possibly related to the recent chemotherapy that he received. There is also likely some degree of heart failure, although he looks fairly euvolemic at this time. Holding diuresis currently. Autoimmune testing is pending. He continues to be in atrial fibrillation with rapid ventricular response. He did convert to sinus rhythm for a period of time yesterday. Continue metoprolol and diltiazem. Off the diltiazem drip currently. His prognosis continues to be poor. Family updated at bedside along with the patient. I have personally spent 30 minutes of critical care time in the direct management of this patient. This is a life/limb threatening event. This includes time spent evaluating patient, direct bedside care, chart review, placing orders, interpretation of diagnostic studies, discussion with consultants, patient, and family members, as well as other required patient management activities. This time is exclusive of all separately billable procedures, and teaching time and separate from and in addition to any other critical care service time. Thank you for allowing us to participate in the care of this patient. (2) Elevated troponin: (3) Atrial fibrillation with rapid ventricular response: (4) Hyperkalemia: (5) Acute kidney injury: (6) Aortic stenosis: (7) Hemoptysis: Subjective Patient continues to have hemoptysis. He has been agitated this morning today. Family is at bedside. He wants to get out of his bed. No fevers or chills overnight. No chest pain. No nausea. Physical Exam Constitutional: WD/WN, vitals as above Eyes: PERRL, conjunctivae normal, anicteric sclerae ENMT: external ear and nose normal, oropharynx normal Neck: normal visual inspection Respiratory: Tachypneic. Coarse rhonchi bilaterally. Cardiovascular: No murmurs. No edema. Gastrointestinal (Abdomen): normal bowel sounds, soft, nontender, no hepatosplenomegaly Musculoskeletal: no cyanosis or clubbing, extremities motor strength 5/5 Neurologic: PERRL, EOMI, accommodation nl, no face palsy, no dysarthria Psychiatric: A+Ox3, euthymic affect Lymphatic: no cervical or axillary lymphadenopathy Results & Data Vital Signs (Past 12 Hours) Vital Signs Temp Pulse Pulse Pulse Resp BP Pulse Ox 12/13/19 08:06 128 H 25 H 127/79 89 L 12/13/19 07:32 141 H 21 90 12/13/19 07:24 116 H 16 147/85 H 84 L 12/13/19 06:00 112 H 16 90 12/13/19 05:55 117 H 26 H 89 L 12/13/19 05:00 105 H 18 111/68 98 12/13/19 04:10 106 H 106 H 27 H 88 L 12/13/19 04:00 97.7 F 103 H 26 H 143/79 H 97 12/13/19 03:00 103 H 18 123/82 91 12/13/19 02:00 109 H 15 109/75 92 12/13/19 01:00 98 H 28 H 131/97 93 12/13/19 00:20 108 H 25 H 91 12/13/19 00:00 97.7 F 98 H 23 123/88 93 12/12/19 23:45 105 H 22 93 12/12/19 23:00 104 H 18 153/115 H 96 Coding Level of Care Code Critical Care 1st 30-74 mins Diagnoses Acute hypoxemic respiratory failure J96.01 Elevated troponin R79.89 Atrial fibrillation with rapid ventricular response I48.91 Hyperkalemia E87.5 Acute kidney injury N17.9 Aortic stenosis I35.0 Hemoptysis R04.2 Time Spent (min) 30
[2019-12-13] MEDS: MAGNESIUM OXIDE 400 MG TAB PO SCH (10:56)
[2019-12-13] MEDS ORDERED: INSULIN GLARGINE SOLOSTAR 100 UNITS/ML 3 ML PEN SC ONE (11:45)
[2019-12-13] MEDS: NORMOSOL-R 1,000 ML IV SCH ×2 (12:23→23:28)
[2019-12-14] MEDS: INSULIN ASPART 100 UNITS/ML 3 ML PEN SC SCH ×6 (00:42→20:54)
[2019-12-14] MEDS: ALBUT/IPRATROP 3MG/0.5MG NEB 3 ML VIAL NEB SCH ×6 (03:25→23:42)
[2019-12-14 05:26] LABS: Hematocrit (blood only) 28.7 % (42-52); Hemoglobin 8.9 g/dL (14.0-18.0); Immature Granulocytes # (auto) 0.05 K/uL (0.00-0.02); Immature Granulocytes % (auto) 0.5 %; Lymphocytes # (auto) 0.34 K/uL (1.2-3.4); Lymphocytes % (auto) 3.1 %; Mean Corpuscular Hemoglobin 28.7 pg (25-34); Mean Corpuscular Volume 92.6 fL (80-100); Mean Platelet Volume 10.2 fL (7.4-10.4); Monocytes # (auto) 0.38 K/uL (0.11-0.59); Monocytes % (auto) 3.5 %; Neutrophils # (auto) 10.23 K/uL (1.4-6.5); Neutrophils % (auto) 92.9 %; Nucleated RBC # (auto) 0.06 K/uL (0-0); Nucleated RBC % (auto) 0.6 %; Platelet Count 232 K/uL (130-400); RDW Coefficient of Variation 18.9 % (11.5-14.5); RDW Standard Deviation 62.6 fL (36.4-46.3)
[2019-12-14 05:47] LABS: Albumin Level 2.9 gm/dl (3.4-5.0); BUN Creatinine Ratio 30.6 (10-20); Bilirubin Direct 0.1 mg/dl (0-0.2); Creatinine Clr Calc Pharmacy 33.3 ml/min; Est GFR (African American) 29.7; Est GFR (Non-African American) 25.6; Magnesium 3.2 mg/dl (1.8-2.4); Potassium 5.5 mmol/L (3.5-5.1)
[2019-12-14 06:04] LABS: Bilirubin,Total 0.4 mg/dl (0.2-1); Phosphorus 4.7 mg/dl (2.5-4.9); Total Protein 6.1 gm/dl (6.4-8.2)
--- NOTE | 2019-12-14 07:03 | XRay Report ---
XR chest 1V portable HISTORY: 79 years-old Male f/u follow-up study in a patient with shortness of breath COMPARISON: Chest radiograph 12/13/2019, chest CT 12/09/2019 TECHNIQUE: Portable AP view of the chest FINDINGS: Cardiac silhouette is enlarged, unchanged. Prior median sternotomy. Calcified plaque of the thoracic aortic arch. No pneumothorax. Unchanged trace pleural effusions and mild right hemidiaphragmatic elev ation. Bilateral mixed interstitial and alveolar opacities are redemonstrated and appear stable from comparison. Degenerative changes of the shoulders and spine. IMPRESSION: 1. Cardiomegaly with persistent mixed interstitial and alveolar opacities suggestive of multifocal pn eumonitis versus pulmonary edema. 2. Trace pleural effusions. ACT 112: Negative or not required by law. The above report was generated using voice recognition software. It may contain grammatical, syntax o r spelling errors. Electronically signed by: Rusty Villa M.D. 12/14/2019 7:02 AM
[2019-12-14] MEDS: PANTOprazole 40 MG TAB PO SCH (08:04)
[2019-12-14] MEDS: FENOFIBRATE NANOCRYSTALLIZED 48 MG TABLET PO SCH (08:04)
[2019-12-14] MEDS: GABAPENTIN 300 MG CAP PO SCH ×2 (08:04→20:53)
[2019-12-14] MEDS: CHOLECALCIFEROL 1,000 UNITS 25 MCG TAB PO SCH (08:04)
[2019-12-14] MEDS: METOPROLOL TARTRATE 50 MG TAB PO SCH ×4 (08:04→20:52)
[2019-12-14] MEDS: dilTIAZem HCL 30 MG TAB PO SCH ×3 (08:04→20:51)
[2019-12-14] MEDS: OMEGA-3 (PURIFIED FISH OIL) 1 GM CAP PO SCH (08:05)
[2019-12-14] MEDS: INSULIN GLARGINE SOLOSTAR 100 UNITS/ML 3 ML PEN SC SCH ×2 (08:06→20:51)
[2019-12-14] MEDS: methylPREDNISolone 125 MG in SYRINGE 0 ML IV SCH ×4 (08:06→20:54)
[2019-12-14] MEDS: ALUMINUM/MAGNESIUM SUSP 30 ML UDC PO PRN (09:27)
--- NOTE | 2019-12-14 10:57 | Cardiology Progress Note ---
Date of Service December 14, 2019 Assessment & Plan (1) Atrial fibrillation with rapid ventricular response: 2. Acute hypoxic respiratory failure 3. Acute diastolic heart failure 4. CAD post CABG and multiple PCI 5. Elevated troponin 6. SAMANTHA/CKD 7. Metastatic prostate cancer 8. Type 2 diabetes 9. Dyslipidemia Diuretics on hold after mild SAMANTHA Appears well-perfused and euvolemic on exam today. Remains in A. fib with RVR, variable heart rates in the 110s to 140s --Agree with holding diuretics today --Limited options for antiarrhythmics or cardioversion at this time. Will hold off on digoxin in the setting of SAMANTHA. Continued rate control with diltiazem, metoprolol. Can increase diltiazem up to 120 mg 3 times daily and titrate further as BP allows --Eliquis on hold in the setting of continue hemoptysis Subjective Remains on high flow 02 dependent -- unchanged from saturday. Reportedly a period of sinus rhythm over the weekend. Remains in AF with RVR today from 110-140s. Denies chest pain, palpitations. Mood down. Doesn't want to stay in hospital like this. Review of Systems Review of Systems: All systems reviewed & are unremarkable except as noted in HPI & below Physical Exam Physical Exam: General: High flow to nasal cannula in place, conversant, no acute distress HEENT: Sclerae anicteric, mucous membranes moist Lungs: Few crackles at bases Cardiac: Irregularly irregular, tachycardic, 2 out of 6 systolic ejection murmur, no JVD Abdomen: Soft, nontender, nondistended, positive bowel sounds. Extremities: Warm, well perfused, trace lower extremity edema Neuro: Nonfocal Psych: Alert orient x3 Results & Data Vital Signs (Past 12 Hours) Vital Signs Temp Pulse Pulse Pulse Resp BP BP 12/14/19 10:29 114 H 22 12/14/19 08:00 98.1 F 116 H 123 H 26 H 114/74 12/14/19 07:16 117 H 24 12/14/19 06:05 116 H 24 149/109 H 12/14/19 05:56 115 H 22 12/14/19 05:37 121 H 19 135/81 12/14/19 04:53 97.9 F 120 H 15 127/86 12/14/19 03:27 106 H 24 12/14/19 03:26 115 H 24 12/14/19 03:05 103 H 22 132/73 12/14/19 02:05 117 H 21 136/69 12/14/19 01:06 111 H 34 H 12/14/19 01:05 92 H 19 135/97 12/14/19 00:05 97.9 F 97 H 17 134/99 12/13/19 23:49 94 H 33 H 12/13/19 23:05 92 H 24 129/70 Pulse Ox 12/14/19 10:29 89 L 12/14/19 08:00 95 12/14/19 07:16 90 12/14/19 06:05 92 12/14/19 05:56 91 12/14/19 05:37 94 12/14/19 04:53 93 12/14/19 03:27 85 L 12/14/19 03:26 85 L 12/14/19 03:05 94 12/14/19 02:05 90 12/14/19 01:06 91 12/14/19 01:05 93 12/14/19 00:05 92 12/13/19 23:49 93 12/13/19 23:05 90 PG Care Time/CCT Total # of Minutes Spent Total Time Spent with Patient: Total time spent is greater than 50% in coordination of care (as documented) at patient's floor/unit and/or counseling patient:
[2019-12-14] MEDS: NORMOSOL-R 1,000 ML IV SCH ×2 (11:37→23:01)
--- NOTE | 2019-12-14 14:41 | Pharmacy Report ---
Pharmacy Glycemic Short Note 2 - Date of Service December 14, 2019 - Glycemic Short BSG Results (Last 24 hours): 12/13/19 12/13/19 12/14/19 16:00 20:27 00:25 Glucose POC Glucose 159 H 148 H 117 H 12/14/19 12/14/19 12/14/19 04:58 04:59 10:56 Glucose 137 H POC Glucose 139 H 284 H OUTPATIENT ANTIDIABETIC REGIMEN: * Lantus 36 units daily * Lispro per scale * A1c 7.3% ASSESSMENT: 12/14: * Patient received 55 units of insulin yesterday (18 of basal, 37 of bolus) * Scr remains elevated, but improved from yesterday * Steroids continue at solumedrol IV 125mg QID * Fasting BSG was acceptable, will continue with lantus scale with some modifications. * Lunch BSG elevated. Timing of BSG may have contributed to this. Thus I am hesitant to react too much to this value, but will tighten novolog scale somewhat 12/13 * Patient is currently receiving an average of 80 units of insulin per day * 30 units of basal insulin * 52 units of prandial/correctional insulin * BSGs ranging 80- 145 over the past 24hrs * Insulin requirements have decreased significantly, even with increase in steroid dose. This is likely a result of rising SCr, which will alter the PD of the insulin. Palliative care and hospice may be discussed in the near future if patient continues to not improve. * Anticipating insulin regimen will need decreased for the next 24hrs d/t : * AM Fasting BSG = 91; therefore Basal insulin needs decreased - ordered scale will allow for this. * BSGs trending downwards throughout the day; therefore Loosen CF/CR * BSG now up to 219 prior to lunch. Will tighten CR but not as aggressive as previously ordered. Will order a one time dose of Lantus since dose was held last night and this AM due to lower BSGs. 12/12 * Patient is currently receiving an average of 125 units of insulin per day * 54 units of basal insulin * 72 units of prandial/correctional insulin * BSGs ranging 141- 279 over the past 24hrs * Risk factors for insulin resistance may increase over the next 24hrs since steroid dosing increasing from 40 mg TID to 125 mg TID; however, current dose is already above the daily threshold for effects on glycemic control * Anticipating insulin regimen will need increased for the next 24hrs due to elevated postprandial BSGs yesterday but will hold off on adjusting further unless a BSG rise is seen with increase in steroids 12/11 * Glycemic control improving slightly * Over the last 24 hrs 104 units SQ insulin administered * Fasting AM BSG 177 this AM with 50 units basal + 15 units correction given overnight - will slightly uptitrate basal dosing scale * Novolog doses may need to be slightly larger as well. Will adjust CF and CR. * Plan to continue to check BSGs overnight for additional correctional insulin 12/10 * Type 2 diabetic admitted for hypoxic resp failure, a fib RVR, SAMANTHA, hemoptysis * Patient was admitted to the hospital recently, that admission was reviewed for steroid use / insulin doses / BSGs * SQ Basal/Bolus regimen initiated yesterday using data from this prior admission where it appeared patient would require > 100 units/day on current steroid regimen to achieve glycemic targets * Fasting BSG down to 161 this AM w/ 55 units Lantus + 9 units Novolog correction on board * Diet was advanced this AM (prelunch hyperglycemia due to late lunch arrival and lack of prandial insulin) * Steroids continue today; insulin doses we only be adjusted slightly as diet has been advanced PLAN FOR INPATIENT GLYCEMIC CONTROL: * Basal insulin - continue same scale but loosen BSG parameters and provide one time dose of 18 units at lunch today (since AM dose held) * Lantus SQ BID * 8 units if less than 120 * 18 units if 120-180 * 30 units if BSG greater than 180 * Bolus insulin - loosen CF/CR * NovoLog per scale ACHS + 00,04 * Goal Range: Low 110 mg/dL - High 140 mg/dL * Correction Factor: 15 mg/dL/unit (18 with breakfast and lunch) * Nutritional / Prandial insulin per carb ratio of 1 unit per 4 grams CHO consumed PLAN FOR DISCHARGE: * to be determined
--- NOTE | 2019-12-14 17:21 | Palliative Care Consultation ---
Date of Consultation December 14, 2019 Assessment & Plan (1) Goals of care, counseling/discussion: -79 year old male patient with history of noninvasive bladder cancer as well as prostate cancer for which he completed chemo/XRT in 2016, recently discovered diffuse skeletal mets on a PET scan in October 2019 for which he underwent XRT and chemo, presented to the hospital several days ago with severe SOB and acute respiratory failure. Other PMH includes htn, hypercholesterolemia, DM, CAD, CKD stage III, COPD, paroxysmal afib and others. Patient was also recently treated for pneumonitis about a week prior to arrival. Upon arrival, CT chest showed ground glass opacity which could represent pneumonitis vs. infectious process vs. heart failure. Patient was placed on steroids and abx but unfortunately not improving despite maximum medical management. Unable to know if this is malignancy unless biopsy obtained, and risk of bronchoscopy with biopsy is too high in this patient who is requiring 100% FiO2 via high-flow nasal cannula alternating with Bipap at night. Given patient's multiple comorbidities including metastatic cancer and acute respiratory failure with declining condition despite treatment, palliative care is consulted to discuss goals of care with patient and family. -Met with patient, his daughter and in room 110. patient AA&O x4 and able to participate in conversation. -Lengthy medical update given by Dr. Johns. We are currently continuing abx and IV Steroids in hopes to treat any reversible cause to this hypoxic respiratory failure such as infection vs. pneumonitis vs. autoimmune disorder. However, if this is spread of a metastatic cancer, there may not be any treatment or reversible cause to this. In order to know 100%, would require bronchoscopy and tissue biopsy-- risks outweigh benefits as it would not change our treatment plan. Patient and family are understanding of this. -patient states that he is at the point in his life where he just wants to go home and be comfortable. He does not want heroic measures and he is frustrated about being in the hospital. Patient states he is not afraid to , but does worry about leaving his family behind. Patient's and daughter are supportive and state that they would like to follow patient's wishes. -Goal would be for patient to get home on hospice. However, the level of oxygen he is requiring cannot be done anywhere but in the hospital. -Plan will be to continue current treatment with abx and steroids, trying to mobilize patient out of bed and see how he does. If we can optimize his medical condition and start to wean the oxygen down, even if it means we ignore the oxygen saturation and treat with morphine, we could certain try to get him home with hospice if there is a window of time to do so safely. and daughter both agree that they would be okay with taking him home on hospice. Daughter is a registered nurse and would be comfortable giving meds and being with patient 24/06. -Palliative care team will continue to follow closely. (2) Acute hypoxemic respiratory failure: (3) Atrial fibrillation with rapid ventricular response: (4) Prostate cancer metastatic to bone: History of Present Illness Attending Physician: Yasir Crouch History of Present Illness This 79 year old male patient with history of noninvasive bladder cancer as well as prostate cancer for which he completed chemo/XRT in 2015, recently discovered diffuse skeletal mets on a PET scan in October 2019 for which he underwent XRT and chemo, presented to the hospital several days ago with severe SOB and acute respiratory failure. Other PMH includes htn, hypercholesterolemia, DM, CAD, CKD stage III, COPD, paroxysmal afib and others. Patient was also recently treated for pneumonitis about a week prior to arrival. Upon arrival, CT chest showed ground glass opacity which could represent pneumonitis vs. infectious process vs. heart failure. Patient was placed on steroids and abx but unfortunately not improving despite maximum medical management. Unable to know if this is malignancy unless biopsy obtained, and risk of bronchoscopy with biopsy is too high in this patient who is requiring 100% FiO2 via high-flow nasal cannula alternating with Bipap at night. Given patient's multiple comorbidities including metastatic cancer and acute respiratory failure with declining condition despite treatment, palliative care is consulted to discuss goals of care with patient and family. Thank you kindly for this consult. Palliative care team will follow as needed. Allergies Allergy/AdvReac Type Severity Reaction Status Date / Time No Known Drug Allergies Allergy Unknown Unknown Verified 11/29/19 00:59 Home Medications Home Medications Medication Instructions Recorded Confirmed Type clonidine HCl 0.3 mg tablet 0.3 mg PO TID #90 tab 07/30/19 12/09/19 Rx fenofibrate micronized 67 mg 67 mg PO DAILY #90 cap 08/05/19 12/09/19 Rx capsule pantoprazole 40 mg tablet,delayed 40 mg PO DAILY #90 tab 08/05/19 12/09/19 Rx release amlodipine 10 mg tablet 10 mg PO DAILY #30 tab 08/28/19 12/09/19 History apixaban 2.5 mg tablet 2.5 mg PO BID tab 08/28/19 12/09/19 History cholecalciferol (vitamin D3) 25 1,000 units PO DAILY cap 08/28/19 12/09/19 History mcg (1,000 unit) capsule coenzyme Q10 100 mg capsule 100 mg PO DAILY cap 08/28/19 12/09/19 History evolocumab 140 mg/mL subcutaneous 140 mg SQ DIRECTED ml 08/28/19 12/09/19 History pen injector labetalol 300 mg tablet 300 mg PO BID #180 tab 08/28/19 12/09/19 History magnesium 250 mg tablet 250 mg PO BID tab 08/28/19 12/09/19 History niacin 500 mg tablet 500 mg PO TID tab 08/28/19 12/09/19 History omega-3 acid ethyl esters 1 gram 1 cap PO DAILY cap 08/28/19 12/09/19 History capsule furosemide 40 mg tablet 40 mg PO DAILY #90 tab 09/18/19 12/09/19 Rx insulin glargine 100 unit/mL 36 units SUBCUT DIRECTED ml 09/21/19 12/09/19 History subcutaneous solution insulin lispro 100 unit/mL 10 - 16 units SUBCUT DIRECTED 09/21/19 12/09/19 History subcutaneous pen ml gabapentin 300 mg capsule 300 mg PO TID #90 cap 10/19/19 12/09/19 Rx oxycodone 5 mg tablet 5 mg PO QID PRN 10 Days #40 tab 10/26/19 12/09/19 Rx bicalutamide 50 mg tablet 50 mg PO DAILY #30 tab 11/02/19 12/09/19 Rx tramadol 50 mg tablet 100 mg PO Q4H PRN #360 tab 11/05/19 12/09/19 Rx leuprolide 7.5 mg intramuscular 7.5 mg IM ONCE #1 ea 11/19/19 12/09/19 Rx syringe kit glucos sul [id number] 1 cap PO BID 11/29/19 12/09/19 History ondansetron HCl 8 mg PO UD PRN 11/29/19 12/09/19 History prochlorperazine maleate 10 mg PO UD PRN 11/29/19 12/09/19 History prednisone 10 mg PO UD 21 Days #100 tab 12/02/19 12/09/19 Rx folic acid 20 mg PO DAILY 12/09/19 12/09/19 History Patient History Medical History (Updated 12/14/19 @ 17:15 by NAIMA Marshall) Acute hypoxemic respiratory failure Acute kidney injury (Acute) Aortic stenosis Atrial fibrillation with rapid ventricular response Chronic kidney disease (CKD) stage G3b/A1, moderately decreased glomerular filtration rate (GFR) between 30-44 mL/min/1.73 square meter and albuminuria creatinine ratio less than 30 mg/g (Chronic) Coronary artery disease (Chronic) Degenerative arthritis of left knee (Chronic) Diabetes (Chronic) Goals of care, counseling/discussion Hemoptysis Hypercholesteremia (Chronic) Hyperkalemia Hyperkalemia (Acute) Hypertension (Chronic) Obstructive sleep apnea (Chronic) Surgical History History of heart surgery History of hemorrhoidectomy History of knee replacement History of repair of rotator cuff S/P CABG (coronary artery bypass graft) (Resolved) Family History Mother Cardiac disorder Father Cardiac disorder Myocardial infarction Sister Cardiac disorder Brother Cardiac disorder Social History Preferred Language: Frisian Communication Ability: Effective Visual Impairment: No Limitations Hearing Ability: Use of Hearing Aid Screen Printing Equipment Setter Required: No Beliefs That Will Affect Care: None marital status: Current Living Situation: Spouse current occupational status: retired Feels Safe at Home: Yes Smoking Status: Never smoker Tobacco Type: cigarettes ; Age Started Using Tobacco: 22 ; Age Quit Using Tobacco: 27 ; Hx Alcohol Use: No Hx Substance Use: No Childhood Exposure to Second-Hand Smoke: Yes Dental Care, Regularly: No Physical Activity Frequency: Does not Exercise Seatbelt Use: sometimes Sunscreen Use: No Review of Systems Review of Systems: Const: + weakness Resp: + SOB at rest and with exertion, + cough, + hemoptysis Cardio: No chest pain GI: No abdominal pain, no N/V MS: No musculoskeletal pain Neuro: No confusion Psych: No anxiety, no depression Physical Exam Constitutional: + obese; no acute distress ENMT: external ear and nose normal, oropharynx normal Respiratory: + labored breathing; no respiratory distress high-flow nasal cannula with 100% FiO2 Cardiovascular: Rate/Rhythm: regular rate and regular rhythm Extremities: + edema Neurologic: moves all extremities and awake; not confused Psychiatric: A+Ox3, euthymic affect Results & Data Vital Signs (Past 12 Hours) Vital Signs Temp Pulse Pulse Pulse Resp BP BP 12/14/19 15:20 121 H 20 12/14/19 15:00 121 H 20 12/14/19 12:05 109 H 22 142/73 H 12/14/19 12:00 36.6 C 114 H 21 12/14/19 11:05 97 H 24 136/92 12/14/19 11:00 105 H 24 12/14/19 10:29 114 H 22 12/14/19 10:05 111 H 22 138/77 12/14/19 10:00 108 H 20 12/14/19 09:05 123 H 22 150/102 H 12/14/19 09:00 122 H 25 H 12/14/19 08:05 124 H 24 142/87 H 12/14/19 08:00 36.7 C 130 H 123 H 29 H 114/74 12/14/19 07:16 117 H 24 12/14/19 07:05 128 H 19 141/74 H 12/14/19 07:00 122 H 29 H 12/14/19 06:05 116 H 24 149/109 H 12/14/19 05:56 115 H 22 12/14/19 05:37 121 H 19 135/81 Pulse Ox 12/14/19 15:20 93 12/14/19 15:00 93 12/14/19 12:05 85 L 12/14/19 12:00 90 12/14/19 11:05 88 L 12/14/19 11:00 96 12/14/19 10:29 89 L 12/14/19 10:05 92 12/14/19 10:00 90 12/14/19 09:05 86 L 12/14/19 09:00 91 12/14/19 08:05 90 12/14/19 08:00 91 12/14/19 07:16 90 01/13/20 07:05 95 12/14/19 07:00 92 12/14/19 06:05 92 12/14/19 05:56 91 12/14/19 05:37 94 Time Spent Midlevel 80 minutes with >50% of the time spent at bedside with patient, family and business intelligence engineer discussing condition and GOC.
--- NOTE | 2019-12-14 21:58 | Hospitalist Progress Note ---
Date of Service December 14, 2019 Assessment & Plan (1) Acute respiratory failure with hypoxia: Patient is off antibiotics as pneumonia been ruled out. I did discuss with the broodmare foreman, patient was briefly on Bactrim as well for possible P ZACHARIAH. This is since been discontinued as there is no improvement in patient's renal function as worsened. Patient being treated for CHF. Continue high flow nasal cannula as ordered. Further documentation as below. I discussed with broodmare foreman, plan now is to try steroids as patient may have either interstitial lung disease process versus lymphangitic carcinomatosis versus cryptogenic organizing pneumonia Despite beingon high-dose steroids today and patient has not had significant improvement. -As per broodmare foreman, he would not be appropriate candidate for open lung biopsy or bronchoscopy with biopsy given his tenuous status (2) Pneumonitis: Initially treated with vancomycin and Zosyn, this was discontinued after procalcitonin was negative. Patient is currently continued on IV steroids for possible pneumonitis. Laboratory work to rule out autoimmune/vasculitis pathology has been sent and is still pending. (3) Acute heart failure with preserved ejection fraction: Patient currently being diuresed with Lasix 40 mg daily. Bactrim as noted above. Renal function is stabilized but remains poor. Lasix was decreased to 40 mg once a day and fluid balance essentially even with only 22 cc negative. (4) Prostate cancer metastatic to bone: Continue following up with oncology. currently on Lupron, got a shot 12/10 Appreciate previous input, patient may be moving towards palliative care, will defer to broodmare foreman and oncologist in this respect. (5) Atrial fibrillation: in RVR, diltiazem drip and previously been stopped. metoprolol added, titrated again to 50 mg 4 times daily, remains tachycardic. Patient is also on diltiazem immediate release 90 mg 3 times daily. cardiology following Previously on Eliquis although patient is having hemoptysis, this is been held. (6) Anemia: Anemia of chronic disease due to metastatic prostate cancer to the bones. Hb is stable (7) COPD (chronic obstructive pulmonary disease) case management patient: continue Solu Medrol, Duoneb (8) Chronic kidney disease (CKD) stage G3b/A1, moderately decreased glomerular filtration rate (GFR) between 30-44 mL/min/1.73 square meter and albuminuria creatinine ratio less than 30 mg/g: Creatinine stable. Continue to monitor. (9) Obstructive sleep apnea: Continue CPAP or BiPAP for acute respiratory failure and as night as needed. (10) Coronary artery disease: no chest pain troponin continues to be slightly high at 2 represents type II TX due to afib with RVR, this is not an acute coronary event, just demand ischemia has not really trended up or down cardiology following (11) Hypercholesteremia: (12) Hypertension: Continue monitoring. As per ICU team (13) Sepsis: no signs of sepsis no current infection antibiotics stopped Subjective Patient is frustrated about his lack of improvement. His [facility] is at [facility] and is aware of plan to see if patient improves with steroids. Patient's ultimate goal is to go home to pass away, however he understands that he is requiring a large amount of oxygen and cannot go home with his elevated requirements.. Review of Systems Constitutional: + fatigue and + weakness; no fever and no chills Respiratory: + cough, + chest congestion, + dyspnea, + hemoptysis and + sputum production; no pain with cough and no wheezing Cardiovascular: + dyspnea and + edema; no chest pain and no syncope Physical Exam Physical Exam: Constitutional: cooperative Minimal conversational shortness of breath Neck: trachea midline, no thyromegaly Respiratory: Auscultation: no wheezing; no crackles, no rales and no rhonchi Cardiovascular: Rate/Rhythm: regular rate, + tachycardic and + irregularly irregular Heart Sounds: normal S1 and normal S2 Gastrointestinal (Abdomen): Inspection/Auscultation: abdomen normal to inspection Percussion/Palpation: abdomen soft; abdomen nontender, no guarding, abdomen not rigid and no hepatosplenomegaly Skin: no rashes, warm and dry Results & Data Vital Signs (Past 12 Hours) Vital Signs Temp Pulse Pulse Resp BP Pulse Ox 12/14/19 19:25 120 H 20 91 12/14/19 18:05 105 H 23 148/97 H 88 L 12/14/19 18:00 108 H 25 H 86 L 12/14/19 17:05 120 H 41 H 142/89 H 88 L 12/14/19 17:00 110 H 21 86 L 12/14/19 16:05 126 H 38 H 137/94 89 L 12/14/19 16:00 122 H 18 96 12/14/19 15:20 121 H 20 93 12/14/19 15:05 137 H 22 139/88 92 12/14/19 15:00 128 H 121 H 26 H 94 12/14/19 14:05 126 H 21 120/82 91 12/14/19 14:00 127 H 28 H 88 L 12/14/19 13:05 120 H 24 124/88 91 12/14/19 13:00 119 H 34 H 88 L 12/14/19 12:05 109 H 22 142/73 H 85 L 12/14/19 12:00 36.6 C 114 H 21 90 12/14/19 11:05 97 H 24 136/92 88 L 12/14/19 11:00 105 H 24 96 12/14/19 10:29 114 H 22 89 L 12/14/19 10:05 111 H 22 138/77 92 12/14/19 10:00 108 H 20 90 PG Care Time/CCT Total # of Minutes Spent Total Time Spent with Patient: Total time spent is greater than 50% in coordination of care (as documented) at patient's floor/unit and/or counseling patient: (1) Anemia Anemia type: unspecified type Qualified Code(s): D64.9 - Anemia, unspecified (2) Atrial fibrillation Atrial fibrillation type: unspecified Qualified Code(s): I48.91 - Unspecified atrial fibrillation
--- NOTE | 2019-12-14 22:46 | Critical Care Progress Note ---
Date of Service December 14, 2019 Assessment & Plan (1) Acute hypoxemic respiratory failure: Reason Critically Ill: Acute hypoxic respiratory failure PLAN: Neuro: Melancholy -Consider possible addition of antidepressant given significant frustration with medical condition Resp: Acute hypoxic respiratory failure -Interval increase in groundglass opacities from CT scan in November to now -Consideration given to interstitial lung disease process versus lymphangitic carcinomatosis versus cryptogenic organizing pneumonia -Patient is on high-dose steroids and not had significant improvement. -He would not be appropriate candidate for open lung biopsy or bronchoscopy with biopsy given his tenuous status Hemoptysis CV: Atrial fibrillation with rapid ventricular response -Increase metoprolol -Believe the patient is volume down and will benefit from very gentle hydration and volume expansion Fluids/Renal: Acute kidney injury on chronic kidney disease -Continue to trend BUN and creatinine ID: Fungus isolated in expectorated sputum -Reviewed notes, patient finished antibiotics during last admission, antibiotics were discontinued on December 09 -Galactomannan still pending -Bactrim was stopped given risk-benefit of PGP coverage -Given lack of improvement and inability to undergo additional testing I will send a fungal blood culture and start empiric itraconazole GI/Nutrition: Carb consistent diet Heme: Anemia DVT prophylaxis: SCDs given significant hemoptysis Endocrine: ICU hyperglycemia protocol Vascular access: Peripheral IVs Code Status: DNR/DNI Had an extensive discussion with the patient's family and palliative care service. Patient is extremely frustrated and desires to go home and is prepared to . He feels he has had a good life and is extremely tired of his continued medical decline. Given that the patient is on high flow oxygen at 100% concentration and barely maintaining adequate oxygen saturations and his overlying goal is to hopefully be discharged home, I believe we should continue the current treatment course for the next 48 to 72 hours and if we are able to improve we might be able to stabilize to the point that would allow him to transition home in a hospice scenario. If we are unable to see significant improvement, the patient feels that he is reaching the end of his desire to seek active medical treatment and is strongly considering comfort options. (2) Elevated troponin: (3) Atrial fibrillation with rapid ventricular response: (4) Hyperkalemia: (5) Acute kidney injury: (6) Aortic stenosis: (7) Hemoptysis: Subjective Patient initially reports that he feels okay like he would at home. Upon further questioning he denies chest pain, he has significant exertional dyspnea, he is frustrated with the lack of improvement in his condition. He also reports that he would be ready to . Review of Systems Review of Systems: No chest pain, exertional dyspnea, no fevers no chills Physical Exam Physical Exam: General: Alert. nontoxic. Skin: Warm, dry, Head: Atraumatic Ears, nose, mouth and throat: airway patent Cardiovascular: Normal peripheral perfusion Respiratory: no respiratory distress, tolerating high flow nasal cannula Gastrointestinal: Non distended Musculoskeletal: No deformity, +1 peripheral edema, GEO hose in place Results & Data Vital Signs (Past 12 Hours) Vital Signs Temp Pulse Pulse Resp BP Pulse Ox 12/14/19 19:25 120 H 20 91 12/14/19 18:05 105 H 23 148/97 H 88 L 12/14/19 18:00 108 H 25 H 86 L 12/14/19 17:05 120 H 41 H 142/89 H 88 L 12/14/19 17:00 110 H 21 86 L 12/14/19 16:05 126 H 38 H 137/94 89 L 12/14/19 16:00 122 H 18 96 12/14/19 15:20 121 H 20 93 12/14/19 15:05 137 H 22 139/88 92 12/14/19 15:00 128 H 121 H 26 H 94 12/14/19 14:05 126 H 21 120/82 91 12/14/19 14:00 127 H 28 H 88 L 12/14/19 13:05 120 H 24 124/88 91 12/14/19 13:00 119 H 34 H 88 L 12/14/19 12:05 109 H 22 142/73 H 85 L 12/14/19 12:00 36.6 C 114 H 21 90 12/14/19 11:05 97 H 24 136/92 88 L 12/14/19 11:00 105 H 24 96 Laboratory Results 12/14/19 12/14/19 12/14/19 Range/Units 20:24 17:04 10:56 WBC (4.8-10.8) K/uL RBC (4.7-6.1) M/uL Hgb (14.0-18.0) g/dL Hct (42-52) % MCV (80-100) fL MCH (25-34) pg MCHC (32-36) g/dL RDW Std Deviation (36.4-46.3) fL RDW Coeff of Jose Luis (11.5-14.5) % Plt Count (130-400) K/uL MPV (7.4-10.4) fL Immature Gran % (Auto) % Neut % (Auto) % Lymph % (Auto) % [place] % (Auto) % Eos % (Auto) % Baso % (Auto) % Immature Gran # (Auto) (0.00-0.02) K/uL Neut # (Auto) (1.4-6.5) K/uL Lymph # (Auto) (1.2-3.4) K/uL [place] # (Auto) (0.11-0.59) K/uL Eos # (Auto) (0-0.5) K/uL Baso # (Auto) (0-0.2) K/uL Absolute Nucleated RBC (0-0) K/uL Nucleated RBC % (auto) % Sodium (136-145) mmol/L Potassium (3.5-5.1) mmol/L Chloride (98-107) mmol/L Carbon Dioxide (21-32) mmol/L Anion Gap (3-11) BUN (7-18) mg/dl Creatinine (0.6-1.4) mg/dl Est Cr Clr Drug Dosing ml/min Est GFR ( Amer) Est GFR (Non-Af Amer) BUN/Creatinine Ratio (10-20) Glucose (70-99) mg/dl POC Glucose 173 H 231 H 284 H (70-99) Calcium (8.5-10.1) mg/dl Ionized Calcium (1.12-1.32) mmol/L Phosphorus (2.5-4.9) mg/dl Magnesium (1.8-2.4) mg/dl Total Bilirubin (0.2-1) mg/dl Direct Bilirubin (0-0.2) mg/dl AST (15-37) U/L ALT (12-78) U/L Alkaline Phosphatase (45-117) U/L Total Protein (6.4-8.2) gm/dl Albumin (3.4-5.0) gm/dl 01/13/20 01/13/20 01/13/20 Range/Units 04:59 04:59 04:59 WBC 11.00 H (4.8-10.8) K/uL RBC 3.10 L (4.7-6.1) M/uL Hgb 8.9 L (14.0-18.0) g/dL Hct 28.7 L (42-52) % MCV 92.6 (80-100) fL MCH 28.7 (25-34) pg MCHC 31.0 L (32-36) g/dL RDW Std Deviation 62.6 H (36.4-46.3) fL RDW Coeff of Jose Luis 18.9 H (11.5-14.5) % Plt Count 232 (130-400) K/uL MPV 10.2 (7.4-10.4) fL Immature Gran % (Auto) 0.5 % Neut % (Auto) 92.9 % Lymph % (Auto) 3.1 % [place] % (Auto) 3.5 % Eos % (Auto) 0.0 % Baso % (Auto) 0.0 % Immature Gran # (Auto) 0.05 H (0.00-0.02) K/uL Neut # (Auto) 10.23 H (1.4-6.5) K/uL Lymph # (Auto) 0.34 L (1.2-3.4) K/uL [place] # (Auto) 0.38 (0.11-0.59) K/uL Eos # (Auto) 0.00 (0-0.5) K/uL Baso # (Auto) 0.00 (0-0.2) K/uL Absolute Nucleated RBC 0.06 H (0-0) K/uL Nucleated RBC % (auto) 0.6 % Sodium 137 (136-145) mmol/L Potassium 5.5 H (3.5-5.1) mmol/L Chloride 104 (98-107) mmol/L Carbon Dioxide 30 (21-32) mmol/L Anion Gap 3.0 (3-11) BUN 72 H (7-18) mg/dl Creatinine 2.36 H D (0.6-1.4) mg/dl Est Cr Clr Drug Dosing 33.3 ml/min Est GFR ( Amer) 29.7 Est GFR (Non-Af Amer) 25.6 BUN/Creatinine Ratio 30.6 H (10-20) Glucose 137 H (70-99) mg/dl POC Glucose (70-99) Calcium 8.0 L (8.5-10.1) mg/dl Ionized Calcium 1.06 L (1.12-1.32) mmol/L Phosphorus 4.7 D (2.5-4.9) mg/dl Magnesium 3.2 H (1.8-2.4) mg/dl Total Bilirubin 0.4 (0.2-1) mg/dl Direct Bilirubin 0.1 (0-0.2) mg/dl AST 35 (15-37) U/L ALT 28 (12-78) U/L Alkaline Phosphatase 349 H (45-117) U/L Total Protein 6.1 L (6.4-8.2) gm/dl Albumin 2.9 L (3.4-5.0) gm/dl 12/14/19 12/14/19 Range/Units 04:58 00:25 WBC (4.8-10.8) K/uL RBC (4.7-6.1) M/uL Hgb (14.0-18.0) g/dL Hct (42-52) % MCV (80-100) fL MCH (25-34) pg MCHC (32-36) g/dL RDW Std Deviation (36.4-46.3) fL RDW Coeff of Jose Luis (11.5-14.5) % Plt Count (130-400) K/uL MPV (7.4-10.4) fL Immature Gran % (Auto) % Neut % (Auto) % Lymph % (Auto) % [place] % (Auto) % Eos % (Auto) % Baso % (Auto) % Immature Gran # (Auto) (0.00-0.02) K/uL Neut # (Auto) (1.4-6.5) K/uL Lymph # (Auto) (1.2-3.4) K/uL [place] # (Auto) (0.11-0.59) K/uL Eos # (Auto) (0-0.5) K/uL Baso # (Auto) (0-0.2) K/uL Absolute Nucleated RBC (0-0) K/uL Nucleated RBC % (auto) % Sodium (136-145) mmol/L Potassium (3.5-5.1) mmol/L Chloride (98-107) mmol/L Carbon Dioxide (21-32) mmol/L Anion Gap (3-11) BUN (7-18) mg/dl Creatinine (0.6-1.4) mg/dl Est Cr Clr Drug Dosing ml/min Est GFR ( Amer) Est GFR (Non-Af Amer) BUN/Creatinine Ratio (10-20) Glucose (70-99) mg/dl POC Glucose 139 H 117 H (70-99) Calcium (8.5-10.1) mg/dl Ionized Calcium (1.12-1.32) mmol/L Phosphorus (2.5-4.9) mg/dl Magnesium (1.8-2.4) mg/dl Total Bilirubin (0.2-1) mg/dl Direct Bilirubin (0-0.2) mg/dl AST (15-37) U/L ALT (12-78) U/L Alkaline Phosphatase (45-117) U/L Total Protein (6.4-8.2) gm/dl Albumin (3.4-5.0) gm/dl Coding Level of Care Code Critical Care 1st 30-74 mins Diagnoses Acute hypoxemic respiratory failure J96.01 Elevated troponin R79.89 Atrial fibrillation with rapid ventricular response I48.91 Hyperkalemia E87.5 Acute kidney injury N17.9 Aortic stenosis I35.0 Hemoptysis R04.2 Time Spent (min) 95 Comment I have personally spent 95 minutes of critical care time in the direct management of this patient. This is a life/limb threatening event. This includes time spent evaluating patient, direct bedside care, chart review, placing orders, interpretation of diagnostic studies, discussion with consultants, patient, and/or family members regarding treatment decisions, as well as other required patient management activities. This time is exclusive of all separately billable procedures, and teaching time and separate from and in addition to any other critical care service time.
[2019-12-14] MEDS ORDERED: CONSULT PHARMACY STA (23:04)
[2019-12-14] MEDS: FLUCONAZOLE 200 MG/100 ML BAG IV SCH (23:48)
[2019-12-15] MEDS: FLUCONAZOLE 200 MG/100 ML BAG IV SCH ×3 (01:06→05:04)
[2019-12-15] MEDS: ALBUT/IPRATROP 3MG/0.5MG NEB 3 ML VIAL NEB SCH ×5 (02:00→19:59)
[2019-12-15 05:20] LABS: Hemoglobin 8.6 g/dL (14.0-18.0); Immature Granulocytes # (auto) 0.08 K/uL (0.00-0.02); Immature Granulocytes % (auto) 0.6 %; Lymphocytes # (auto) 0.42 K/uL (1.2-3.4); Lymphocytes % (auto) 3.3 %; Mean Corpuscular Hemoglobin 28.8 pg (25-34); Mean Corpuscular Hgb Conc 30.7 g/dL (32-36); Mean Corpuscular Volume 93.6 fL (80-100); Mean Platelet Volume 9.5 fL (7.4-10.4); Monocytes # (auto) 0.06 K/uL (0.11-0.59); Monocytes % (auto) 0.5 %; Neutrophils # (auto) 12.17 K/uL (1.4-6.5); Neutrophils % (auto) 95.6 %; Nucleated RBC # (auto) 0.06 K/uL (0-0); Nucleated RBC % (auto) 0.4 %; Platelet Count 204 K/uL (130-400); RDW Coefficient of Variation 19.2 % (11.5-14.5); RDW Standard Deviation 64.7 fL (36.4-46.3); Red Blood Count 2.99 M/uL (4.7-6.1); White Blood Count 12.73 K/uL (4.8-10.8)
[2019-12-15 05:40] LABS: BUN Creatinine Ratio 33.7 (10-20); Creatinine Clr Calc Pharmacy 37.7 ml/min; Est GFR (Non-African American) 30.2; Magnesium 3.1 mg/dl (1.8-2.4); Potassium 5.8 mmol/L (3.5-5.1)
[2019-12-15 05:56] LABS: Phosphorus 3.6 mg/dl (2.5-4.9)
--- NOTE | 2019-12-15 07:10 | XRay Report ---
XR chest 1V portable CLINICAL HISTORY: Abnormal chest x-ray. Follow-up study. Shortness of breath. COMPARISON STUDY: 12/14/2019 FINDINGS: The heart remains enlarged. There are postsurgical changes of a midline sternotomy. There a re persistent extensive Bilateral interstitial and alveolar pulmonary opacities. Trace pleural effusions are suspected.. Diag nostic considerations remain a multifocal pneumonitis versus pulmonary edema. IMPRESSION: Cardiomegaly and moderately extensive bilateral mixed interstitial and alveolar opacities , similar to the preceding study ACT 112: Negative or not required by law. Electronically signed by: Reji Grimm M.D. 12/15/2019 7:09 AM
[2019-12-15] MEDS: GABAPENTIN 300 MG CAP PO SCH ×2 (07:58→21:04)
[2019-12-15] MEDS: PANTOprazole 40 MG TAB PO SCH (07:58)
[2019-12-15] MEDS: METOPROLOL TARTRATE 50 MG TAB PO SCH ×4 (07:58→20:33)
[2019-12-15] MEDS: dilTIAZem HCL 30 MG TAB PO SCH ×4 (07:58→20:33)
[2019-12-15] MEDS: CHOLECALCIFEROL 1,000 UNITS 25 MCG TAB PO SCH (07:58)
[2019-12-15] MEDS: OMEGA-3 (PURIFIED FISH OIL) 1 GM CAP PO SCH (07:58)
[2019-12-15] MEDS: methylPREDNISolone 125 MG in SYRINGE 0 ML IV SCH (07:59)
[2019-12-15] MEDS: INSULIN ASPART 100 UNITS/ML 3 ML PEN SC SCH ×2 (07:59→12:08)
[2019-12-15] MEDS: INSULIN GLARGINE SOLOSTAR 100 UNITS/ML 3 ML PEN SC SCH (08:38)
[2019-12-15] MEDS: NORMOSOL-R 1,000 ML IV SCH ×2 (11:20→23:44)
[2019-12-15] MEDS: methylPREDNISolone 80 MG in SYRINGE 0 ML IV SCH ×3 (13:36→20:34)
[2019-12-15] MEDS ORDERED: MoRPHine SULFATE 2 MG/ML CARP IV PRN (20:05)
--- NOTE | 2019-12-15 20:11 | Palliative Care Progress Note ---
Date of Service December 15, 2019 Assessment & Plan (1) Goals of care, counseling/discussion: -Discussed patients condition with Dr. Johns prior to entering the room. Patient had multiple family members present at the bedside, including the patients , daughter and son, along with 5-6 other family members. -patient was AAOx4 and able to fully participate in the conversation. -The patient continues to have overall respiratory failure despite treatment with abx and IV steroids. -Yesterday, patient expressed overall goal to return home with hospice services. Unfortunately, the amount of oxygen that this gentleman is requiring far exceeds the maximum capacity that could be performed at home. Furthermore, I worry about his stability to even transfer home. I believe his body is wearing down and getting tired. -His HR remains rapid ranging 115-130 and he is using more diaphragmatic muscles for breathing, despite him stating he doesn't feel like he is working harder. This is a ch[facility] compensation that his body has been overcoming for years.In order to know 100%if this condition is metastatic in nature, he would require bronchoscopy and tissue biopsy for which the risks outweigh benefits as it would not change our treatment plan. Patient and family are understanding of this. -We discussed overall the feeling of losing control, which I think is a component to take into consideration and it appears that his family is supportive of his decision. All understand that he unlikely will make it home. -For now,he would like to see how the next 24-48 hours go, understanding he likely will get tired out. Made clear that at this point there will not be any escalation in care. -If he gets tired, he welcomes symptom management with Ativan and Morphine which I did order in case he needs them overnight [facility]. Last night, he became really agitated in the middle of the night with trying to get out of bed and making comments about dying. -It was made clear that once he starts receiving these medications, he likely will have further respiratory compromise and enter the active dying phase. He understands. -I spoke with family outside of the room, including his daughter who is an RN here. She is going to have her sons come from [facility]. -Expectation set that he likely has hours to days of life left, regardless of a decision to continue treatment or transition to comfort measures. -Palliative care team will continue to follow closely. (2) Acute hypoxemic respiratory failure: (3) Atrial fibrillation with rapid ventricular response: (4) Prostate cancer metastatic to bone: Subjective Remains on high flow 02 dependent 40L, SPO2 ranging 87-90% Patient continues to be in rapid Afib with RVR, HR ranges 110-130. Patient appears winded and becoming more tired. Patient states he feels like "im just sitting here, waiting" See A/P for additional details. Review of Systems Review of Systems: General: Pt denies pain + lethargy HEENT: Pt denies RAMÍREZ, visual changes CV: Pt denies chest pain, palpitations Resp: Pt reports + SOB GI: Pt denies abdominal pain, N/V/D Skin: (-) skin changes Psych: (-) depression Physical Exam Constitutional: + acute distress, + ill appearing and cooperative Respiratory: + labored breathing and + uses accessory muscles Auscultation: + diminished lung sounds Cardiovascular: Rate/Rhythm: + irregularly irregular Extremities: normal capillary refill Gastrointestinal (Abdomen): normal bowel sounds, soft, nontender, no hepatosplenomegaly Skin: no rashes, warm and dry Psychiatric: A+Ox3, euthymic affect Insight: good insight Judgement: good judgement Results & Data Vital Signs (Past 12 Hours) Vital Signs Temp Pulse Pulse Pulse Resp BP BP 12/15/19 20:00 116 H 22 12/15/19 19:00 109 H 109 H 19 172/80 H 12/15/19 17:35 113 H 26 H 12/15/19 16:06 95 H 20 135/93 12/15/19 16:00 95 H 12/15/19 15:06 117 H 25 H 150/99 H 12/15/19 14:54 115 H 26 H 12/15/19 14:05 131 H 24 128/90 12/15/19 14:00 108 H 24 12/15/19 13:07 106 H 22 152/58 H 12/15/19 13:00 117 H 28 H 12/15/19 12:07 122 H 20 12/15/19 12:06 117 H 22 143/84 H 12/15/19 12:00 36.7 C 116 H 24 12/15/19 11:25 119 H 26 H 12/15/19 11:05 103 H 24 144/86 H 12/15/19 11:00 109 H 25 H 12/15/19 10:05 109 H 19 151/98 H 12/15/19 10:00 97 H 32 H 12/15/19 09:07 94 H 20 12/15/19 09:06 106 H 22 133/84 12/15/19 09:00 106 H 27 H Pulse Ox 12/15/19 20:00 95 12/15/19 19:00 93 12/15/19 17:35 87 L 12/15/19 16:06 93 12/15/19 16:00 12/15/19 15:06 93 12/15/19 14:54 12/15/19 14:05 93 12/15/19 14:00 97 12/15/19 13:07 91 12/15/19 13:00 84 L 12/15/19 12:07 90 12/15/19 12:06 89 L 12/15/19 12:00 86 L 12/15/19 11:25 88 L 12/15/19 11:05 86 L 12/15/19 11:00 89 L 12/15/19 10:05 85 L 12/15/19 10:00 88 L 12/15/19 09:07 86 L 12/15/19 09:06 88 L 12/15/19 09:00 89 L PG Care Time/CCT Total # of Minutes Spent Total Time Spent with Patient: Total time spent is greater than 50% in coordination of care (as documented) at patient's floor/unit and/or counseling patient: 45 Time Spent Midlevel Total time spent 45 minutes with > 50% of that time spent assessing the patient, discussing goals of care and symptom management
--- NOTE | 2019-12-15 22:01 | Critical Care Progress Note ---
Date of Service December 15, 2019 Assessment & Plan (1) Hemoptysis: 1) Acute hypoxemic respiratory failure: Reason Critically Ill: Acute hypoxic respiratory failure PLAN: Neuro: Agitation -Ativan and morphine ordered -Decrease Solu-Medrol over concern of steroid associated fugue Resp: Acute hypoxic respiratory failure -Interval increase in groundglass opacities from CT scan in November to now -Consideration given to interstitial lung disease process versus lymphangitic carcinomatosis versus cryptogenic organizing pneumonia -Patient is on high-dose steroids and not had significant improvement. -He would not be appropriate candidate for open lung biopsy or bronchoscopy with biopsy given his tenuous status Hemoptysis CV: Atrial fibrillation with rapid ventricular response Fluids/Renal: Acute kidney injury on chronic kidney disease Hyperkalemia -Creatinine downtrending however hyperkalemia continuing to increase -It is not within the patient wishes to undergo any form of dialysis. ID: Fungus isolated in expectorated sputum -Initially ordered Diflucan. GI/Nutrition: Carb consistent diet Heme: Anemia DVT prophylaxis: SCDs given significant hemoptysis and chemical prophylaxis contraindicated Endocrine: ICU hyperglycemia protocol -Discontinuing blood sugar checks Vascular access: Peripheral IVs Code Status: DNR/DNI Today we had another extensive discussion with all family members. Patient obviously desires to go home for hospice. However, I do not believe that is going to be a viable option given his significant oxygen requirement. At this time all family members are in agreement that we will not escalate care and as the patient's directs his care which is now focused more on comfort with the overriding possibility of hopefully decreasing his oxygen levels to allow him to be discharged home as interventions are discontinued they will not be reinstituted. No escalation of care. Emphasized to family that if he continues to have periods of agitation the medications may start to exhibit signs of double effect given the acute kidney injury and he could rapidly enter an active dying process. At this time additional family members are attempting to come to bedside from [place]. I do believe the patient carries an extremely poor prognosis. I completed [facility] paperwork for the patient's daughter as it relates to the care of Mr. Ortez. A copy has been made and was directed to be scanned into the chart for future reference. (2) Aortic stenosis: (3) Hyperkalemia: (4) Acute kidney injury: (5) Atrial fibrillation with rapid ventricular response: (6) Acute hypoxemic respiratory failure: (7) Pneumonitis: Subjective Patient reports he feels the same as yesterday. Would desire to get up out of chair and walk around. Patient reports he feels the same as yesterday, early this morning he had a period of anxiety and agitation which did resolve. Review of Systems Review of Systems: Denies chest pain, no shortness of breath at rest, exertional dyspnea Physical Exam Physical Exam: General: Alert. nontoxic. Skin: Warm, dry, Head: Atraumatic Ears, nose, mouth and throat: airway patent Cardiovascular: Normal peripheral perfusion Respiratory: Increased work of breathing, accessory muscle use, pronounced abdominal breathing Gastrointestinal: Non distended Musculoskeletal: No deformity Results & Data Vital Signs (Past 12 Hours) Vital Signs Temp Pulse Pulse Pulse Resp BP BP 12/15/19 21:00 98 H 28 H 132/77 12/15/19 20:00 36.6 C 115 H 22 130/98 12/15/19 19:00 109 H 109 H 19 172/80 H 12/15/19 17:35 113 H 26 H 12/15/19 16:06 95 H 20 135/93 12/15/19 16:00 95 H 12/15/19 15:06 117 H 25 H 150/99 H 12/15/19 14:54 115 H 26 H 12/15/19 14:05 131 H 24 128/90 12/15/19 14:00 108 H 24 12/15/19 13:07 106 H 22 152/58 H 12/15/19 13:00 117 H 28 H 12/15/19 12:07 122 H 20 12/15/19 12:06 117 H 22 143/84 H 12/15/19 12:00 36.7 C 116 H 24 12/15/19 11:25 119 H 26 H 12/15/19 11:05 103 H 24 144/86 H 12/15/19 11:00 109 H 25 H 12/15/19 10:05 109 H 19 151/98 H 12/15/19 10:00 97 H 32 H Pulse Ox 12/15/19 21:00 91 12/15/19 20:00 94 12/15/19 19:00 93 12/15/19 17:35 87 L 12/15/19 16:06 93 12/15/19 16:00 12/15/19 15:06 93 12/15/19 14:54 12/15/19 14:05 93 12/15/19 14:00 97 12/15/19 13:07 91 12/15/19 13:00 84 L 12/15/19 12:07 90 12/15/19 12:06 89 L 12/15/19 12:00 86 L 12/15/19 11:25 88 L 12/15/19 11:05 86 L 12/15/19 11:00 89 L 12/15/19 10:05 85 L 12/15/19 10:00 88 L Laboratory Results 12/15/19 12/15/19 12/15/19 Range/Units 11:00 10:54 07:19 WBC (4.8-10.8) K/uL RBC (4.7-6.1) M/uL Hgb (14.0-18.0) g/dL Hct (42-52) % MCV (80-100) fL MCH (25-34) pg MCHC (32-36) g/dL RDW Std Deviation (36.4-46.3) fL RDW Coeff of Jose Luis (11.5-14.5) % Plt Count (130-400) K/uL MPV (7.4-10.4) fL Immature Gran % (Auto) % Neut % (Auto) % Lymph % (Auto) % [place] % (Auto) % Eos % (Auto) % Baso % (Auto) % Immature Gran # (Auto) (0.00-0.02) K/uL Neut # (Auto) (1.4-6.5) K/uL Lymph # (Auto) (1.2-3.4) K/uL [place] # (Auto) (0.11-0.59) K/uL Eos # (Auto) (0-0.5) K/uL Baso # (Auto) (0-0.2) K/uL Absolute Nucleated RBC (0-0) K/uL Nucleated RBC % (auto) % Sodium (136-145) mmol/L Potassium 5.8 H (3.5-5.1) mmol/L Chloride (98-107) mmol/L Carbon Dioxide (21-32) mmol/L Anion Gap (3-11) BUN (7-18) mg/dl Creatinine (0.6-1.4) mg/dl Est Cr Clr Drug Dosing ml/min Est GFR ( Amer) Est GFR (Non-Af Amer) BUN/Creatinine Ratio (10-20) Glucose (70-99) mg/dl POC Glucose 289 H 270 H (70-99) mg/dl Calcium (8.5-10.1) mg/dl Phosphorus (2.5-4.9) mg/dl Magnesium (1.8-2.4) mg/dl 12/15/19 12/15/19 Range/Units 05:10 05:10 WBC 12.73 H (4.8-10.8) K/uL RBC 2.99 L (4.7-6.1) M/uL Hgb 8.6 L (14.0-18.0) g/dL Hct 28.0 L (42-52) % MCV 93.6 (80-100) fL MCH 28.8 (25-34) pg MCHC 30.7 L (32-36) g/dL RDW Std Deviation 64.7 H (36.4-46.3) fL RDW Coeff of Jose Luis 19.2 H (11.5-14.5) % Plt Count 204 (130-400) K/uL MPV 9.5 (7.4-10.4) fL Immature Gran % (Auto) 0.6 % Neut % (Auto) 95.6 % Lymph % (Auto) 3.3 % [place] % (Auto) 0.5 % Eos % (Auto) 0.0 % Baso % (Auto) 0.0 % Immature Gran # (Auto) 0.08 H (0.00-0.02) K/uL Neut # (Auto) 12.17 H (1.4-6.5) K/uL Lymph # (Auto) 0.42 L (1.2-3.4) K/uL [place] # (Auto) 0.06 L (0.11-0.59) K/uL Eos # (Auto) 0.00 (0-0.5) K/uL Baso # (Auto) 0.00 (0-0.2) K/uL Absolute Nucleated RBC 0.06 H (0-0) K/uL Nucleated RBC % (auto) 0.4 % Sodium 137 (136-145) mmol/L Potassium 5.8 H (3.5-5.1) mmol/L Chloride 106 (98-107) mmol/L Carbon Dioxide 26 (21-32) mmol/L Anion Gap 5.0 (3-11) BUN 69 H (7-18) mg/dl Creatinine 2.06 H D (0.6-1.4) mg/dl Est Cr Clr Drug Dosing 37.7 ml/min Est GFR ( Amer) 35.0 Est GFR (Non-Af Amer) 30.2 BUN/Creatinine Ratio 33.7 H (10-20) Glucose 250 H (70-99) mg/dl POC Glucose (70-99) mg/dl Calcium 8.0 L (8.5-10.1) mg/dl Phosphorus 3.6 D (2.5-4.9) mg/dl Magnesium 3.1 H (1.8-2.4) mg/dl Coding Level of Care Code Critical Care 1st 30-74 mins Diagnoses Hemoptysis R04.2 Aortic stenosis I35.0 Hyperkalemia E87.5 Acute kidney injury N17.9 Atrial fibrillation with rapid ventricular response I48.91 Acute hypoxemic respiratory failure J96.01 Pneumonitis J18.9 Time Spent (min) 90 Comment I have personally spent 90 minutes of critical care time in the direct management of this patient. This is a life/limb threatening event. This includes time spent evaluating patient, direct bedside care, chart review, placing orders, interpretation of diagnostic studies, discussion with consultants, patient, and/or family members regarding treatment decisions, as well as other required patient management activities. This time is exclusive of all separately billable procedures, and teaching time and separate from and in addition to any other critical care service time.
[2019-12-15] MEDS: LORazepam 0.5 MG/1 ML VIAL IV PRN (22:11)
[2019-12-15] MEDS ORDERED: HALOPERIDOL LACTATE 5 MG/ML 1 ML VIAL IV STA ×2 (22:25→22:33)
[2019-12-15] MEDS ORDERED: HALOPERIDOL LACTATE 5 MG/ML 1 ML VIAL ONE (22:26)
[2019-12-15] MEDS ORDERED: LORazepam 1 MG/2 ML VIAL IV STA (22:43)
--- NOTE | 2019-12-15 22:44 | Hospitalist Progress Note ---
Date of Service December 15, 2019 Assessment & Plan (1) Acute respiratory failure with hypoxia: Patient is off antibiotics as pneumonia been ruled out. discussed with the automatic typewriter inspector, patient was briefly on Bactrim as well for possible P ZACHARIAH. This is since been discontinued as there is no improvement in patient's renal function as worsened. Patient being treated for CHF. Continue high flow nasal cannula as ordered. Further documentation as below. I discussed with automatic typewriter inspector, plan now is to try steroids as patient may have either interstitial lung disease process versus lymphangitic carcinomatosis versus cryptogenic organizing pneumonia Despite beingon high-dose steroids today and patient has not had significant improvement. Given lack of improvement, it appears patient will likely pass away in the hospital. -As per automatic typewriter inspector, he would not be appropriate candidate for open lung biopsy or bronchoscopy with biopsy given his tenuous status (2) Pneumonitis: Initially treated with vancomycin and Zosyn, this was discontinued after procalcitonin was negative. Patient is currently continued on IV steroids for possible pneumonitis. Laboratory work to rule out autoimmune/vasculitis pathology has been sent and is still pending. (3) Acute heart failure with preserved ejection fraction: Lasix has been held. (4) Prostate cancer metastatic to bone: Continue following up with oncology. currently on Lupron, got a shot 12/10 Appreciate previous input, patient may be moving towards palliative care, will defer to automatic typewriter inspector and oncologist in this respect. (5) Atrial fibrillation: in RVR, diltiazem drip and previously been stopped. metoprolol added, titrated again to 50 mg 4 times daily, remains tachycardic. Patient is also on diltiazem immediate release 90 mg 3 times daily. cardiology following Previously on Eliquis although patient is having hemoptysis, this is been held. (6) Anemia: Anemia of chronic disease due to metastatic prostate cancer to the bones. Hb is stable (7) COPD (chronic obstructive pulmonary disease) case management patient: continue Solu Medrol, Duoneb (8) Chronic kidney disease (CKD) stage G3b/A1, moderately decreased glomerular filtration rate (GFR) between 30-44 mL/min/1.73 square meter and albuminuria creatinine ratio less than 30 mg/g: Creatinine imrpoved from 2.3 to 2.0 Continue to monitor. (9) Obstructive sleep apnea: Continue CPAP or BiPAP for acute respiratory failure and as night as needed. (10) Coronary artery disease: no chest pain troponin continues to be slightly high at 2 represents type II TN due to afib with RVR, this is not an acute coronary event, just demand ischemia has not really trended up or down cardiology following (11) Hypercholesteremia: (12) Hypertension: Continue monitoring. As per ICU team (13) Sepsis: no signs of sepsis no current infection antibiotics stopped Subjective Partient seen in AM. Patient reports no improvement. Review of Systems Review of Systems: All systems reviewed & are unremarkable except as noted in HPI & below Physical Exam Physical Exam: Constitutional: cooperative Minimal conversational shortness of breath Neck: trachea midline, no thyromegaly Respiratory: Auscultation: no wheezing; no crackles, no rales and no rhonchi Cardiovascular: Rate/Rhythm: regular rate, + tachycardic and + irregularly irregular Heart Sounds: normal S1 and normal S2 Gastrointestinal (Abdomen): Inspection/Auscultation: abdomen normal to inspection Skin: no rashes, warm and dry Results & Data Vital Signs (Past 12 Hours) Vital Signs Temp Pulse Pulse Pulse Resp BP BP 12/15/19 21:00 98 H 28 H 132/77 12/15/19 20:00 36.6 C 115 H 22 130/98 12/15/19 19:00 109 H 109 H 19 172/80 H 12/15/19 17:35 113 H 26 H 12/15/19 16:06 95 H 20 135/93 12/15/19 16:00 95 H 12/15/19 15:06 117 H 25 H 150/99 H 12/15/19 14:54 115 H 26 H 12/15/19 14:05 131 H 24 128/90 12/15/19 14:00 108 H 24 12/15/19 13:07 106 H 22 152/58 H 12/15/19 13:00 117 H 28 H 12/15/19 12:07 122 H 20 12/15/19 12:06 117 H 22 143/84 H 12/15/19 12:00 36.7 C 116 H 24 12/15/19 11:25 119 H 26 H 12/15/19 11:05 103 H 24 144/86 H 12/15/19 11:00 109 H 25 H Pulse Ox 12/15/19 21:00 91 12/15/19 20:00 94 12/15/19 19:00 93 12/15/19 17:35 87 L 12/15/19 16:06 93 12/15/19 16:00 12/15/19 15:06 93 12/15/19 14:54 12/15/19 14:05 93 12/15/19 14:00 97 12/15/19 13:07 91 12/15/19 13:00 84 L 12/15/19 12:07 90 12/15/19 12:06 89 L 12/15/19 12:00 86 L 12/15/19 11:25 88 L 12/15/19 11:05 86 L 12/15/19 11:00 89 L PG Care Time/CCT Total # of Minutes Spent Total Time Spent with Patient: Total time spent is greater than 50% in coordination of care (as documented) at patient's floor/unit and/or counseling patient: (1) Anemia Anemia type: unspecified type Qualified Code(s): D64.9 - Anemia, unspecified (2) Atrial fibrillation Atrial fibrillation type: unspecified Qualified Code(s): I48.91 - Unspecified atrial fibrillation
[2019-12-15] MEDS ORDERED: MoRPHine SULFATE 2 MG/ML CARP IV STA (22:53)
[2019-12-15 23:10] LABS: Anti-Glom Basement Antibody <1.0 AI (<1.0); Anti-Neutrophil Antibody NONE DETECTED (NONE DETECTED); Anti-SS-A <1.0 NEG AI (<1.0 NEG); Anti-SS-B <1.0 NEG AI (<1.0 NEG); Proteinase-3 Ab <1.0 AI; RNP Antibody <1.0 NEG AI (<1.0 NEG); Rheumatoid Factor 32 IU/mL (<14); Scleroderma Anti Scl-70 Ab <1.0 NEG AI (<1.0 NEG)
[2019-12-16] MEDS ORDERED: MoRPHine SULF/NSS 250 MG/250 ML BTL IV SCH (01:00)
[2019-12-16] MEDS ORDERED: [UNRECOGNIZED DRUG - REMARK] IV ONE (01:00)
--- NOTE | 2019-12-16 01:00 | Communication Note ---
Date of Service: December 16, 2019 At approximately 10 PM, the patient had increasing agitation and aggressiveness towards family member and staff. Patient is attempting to crawl out of bed and remove medical equipment. Patient was dosed with his morphine and Ativan as scheduled. Despite this, patient had escalating aggression. I did evaluate the patient at bedside. He has increasing work of breathing with poor oxygen saturations in the mid to low 80s. Patient was dosed with an additional dose of Haldol as well as Ativan and morphine in escalating doses secondary to agitation and air hunger. I did have a discussion with the patient's daughter at bedside. She wishes for the patient's and other family members to be present before proceeding with formal comfort measures including morphine drip. I did personally place the patient back on BiPAP to help with work of breathing until other family are present. This did seem to help with his tachypnea and work of breathing. Upon family members arrived in the ICU, we had a lengthy discussion regarding patient's status as well as goals of care at this point. and children are present at bedside. At this point, they do agree with goals of care to be focused on comfort. They were uncertain of starting the morphine drip at this point for continued air hunger. I did offer to continue with as needed medicati ons as needed which they do agree with this time. Was approached by nursing staff and informed that the patient's family was concerned with the breathing status of the patient. Again, evaluated the patient at bedside. At this point, the patient is resting comfortably with BiPAP in place. His breathing does appear to be labored, however he is less tachypneic than previously. Despite this, I do feel that this is mainly from the medications and treating for agitation. I again addressed the subject of continuing current treatment plan versus progressing towards more aggressive comfort measures. At this point, the patient's family requests morphine drip to be initiated. I did discuss that once the morphine drip was instituted, that this would limit patient's mentation and ability to communicate with family, however they agreed that the patient has not done so readily over the last several hours anyway. At this point, we will start with morphine drip with Ativan for as needed agitation as well. I did discuss removing the BiPAP and placing facemask on the patient for better comfort. At this point, we will continue with the BiPAP for now, however this will be reassessed shortly. At approximately 1:10 AM, the patient's was requesting that we remove BiPAP mask. At this point, I did have more of aggressive conversation with family and discussed that removal of BiPAP at this point would ultimately result in patient's passing. I did discuss compassionate use of supplemental oxygen in the form of Perlita mask. They are comfortable with this for now. They understand that starting the morphine drip as well as discontinuation of the BiPAP mask is all with goals of compassion in mind and to help the patient peacefully. We are on the same page for this. Additionally, I did discuss discontinuation of all medications as well as invasive monitoring, labs, etc. Patient acknowledges this and is comfortable with discontinuation of all unnecessary labs, imaging, medications, etc. Patient will be made full COMFORT MEASURES ONLY at this point. Comfort cart was ordered for patient's family. I have personally spent 60 minutes of critical care time in the direct management of this patient. This is a life/limb threatening event. This includes time spent evaluating patient, direct bedside care, chart review, placing orders, interpretation of diagnostic studies, discussion with consultants, patient, and family members, as well as other required patient management activities. This time is exclusive of all separately billable procedures, and teaching time and separate from and in addition to any other critical care service time.
[2019-12-16] MEDS: ALBUT/IPRATROP 3MG/0.5MG NEB 3 ML VIAL NEB SCH (01:05)
[2019-12-16] MEDS ORDERED: ONDANSETRON INJ 2 MG/ML 2 ML VIAL IV PRN (01:21)
[2019-12-16] MEDS ORDERED: ATROPINE SULFATE 1% OP SOLN 2 ML BTL SL PRN (01:21)
[2019-12-16] MEDS: LORazepam 0.5 MG/1 ML VIAL IV PRN (06:15)
--- NOTE | 2019-12-16 09:34 | Communication Note ---
Date of Service: December 16, 2019 After family discussion yesterday we proceeded from no escalation of care to comfort measures. Patient became quite agitated and exhibiting signs of air hunger. He is currently on a morphine infusion and much more comfortable. Family is in a bedside drummond, expectant management. Patient remains with stable vital signs he would be a candidate for downgrade out of the ICU.
--- NOTE | 2019-12-16 11:41 | Palliative Care Progress Note ---
Date of Service December 16, 2019 Assessment & Plan (1) Goals of care, counseling/discussion: -Family meeting held late last night. Pt with increased agitation overnight. Ativan and Morphine administered. -Transitioned fully to [place]. -Pt on Morphine gtt at 7mg/hour -Pt appears comfortable with some agonal shallow breaths. No facial grimacing noted. Patient very dusky powell with mottling. -Some ectopy on monitor. family wishes to keep monitor on and attached. -Multiple family members at bedside. -All end of life questions answered. -Life expectancy hours to a day. -Advised at this point, would try to avoid transfer out of ICU as patient may pass during transfer. -PPS: 10% (2) Acute hypoxemic respiratory failure: (3) Atrial fibrillation with rapid ventricular response: (4) Prostate cancer metastatic to bone: Subjective Pt with increased agitation overnight. Transitioned fully to [place]. Pt on Morphine gtt at 7mg/hour Pt appears comfortable with some agonal shallow breaths. No facial grimacing Family at bedside. See A/P for further details. Review of Systems Review of Systems: Unobtainable due to reduced consciousness Physical Exam Constitutional: + acute distress and + ill appearing Respiratory: + labored breathing and + uses accessory muscles Auscultation: + diminished lung sounds Cardiovascular: Rate/Rhythm: + irregularly irregular Extremities: normal capillary refill Gastrointestinal (Abdomen): normal bowel sounds, soft, nontender, no hepatosplenomegaly Skin: no rashes, warm and dry Psychiatric: A+Ox3, euthymic affect Insight: good insight Judgement: good judgement Results & Data Vital Signs (Past 12 Hours) Vital Signs Pulse Pulse Resp BP Pulse Ox 12/16/19 10:00 90 9 L 12/16/19 09:00 122 H 12 12/16/19 08:00 108 H 10 L 12/16/19 07:00 113 H 10 L 12/16/19 00:00 99 H 14 119/96 98 12/15/19 23:30 86 24 95 PG Care Time/CCT Total # of Minutes Spent Total Time Spent with Patient: Total time spent is greater than 50% in coordination of care (as documented) at patient's floor/unit and/or counseling patient: 35 Time Spent Midlevel Total time spent 35 minutes with > 50% of that time spent assessing the patient, discussing end of life symptoms with family.
--- NOTE | 2019-12-16 13:16 | Death Summary ---
Date of Service December 16, 2019 Pronouncement Note Date and Time of Date of : 12/16/19 Time of : 13:03 PCOD Preliminary cause of : Acute respiratory failure Contributing Factors (1) Goals of care, counseling/discussion: (2) Acute hypoxemic respiratory failure: (3) Atrial fibrillation with rapid ventricular response: (4) Prostate cancer metastatic to bone: Summary Additional details: Acute hypoxemic respiratory failure: Patient admitted with above diagnosis. Found to be hypoxemic requiring high amounts of oxygen. Despite Solu-Medrol 125 mg 3 times daily and antibiotics, patient did not improve. Palliative care was consulted, patient was transitioned to comfort measures only as his high requirements of oxygen precluded him from returning home. Patient in hospital. Additional Data Confirmation of : no pulse, no respirations and no heart sounds Family: at bedside Attending/PCP notified?: Yes Attending physician: Yasir Crouch Was code activated?: No Autopsy requested?: No garment alteration examiner notified?: No Advance directives: Yes
[2019-12-16 16:12] LABS: Anti Nuclear Antibody Screen POSITIVE (NEGATIVE); Anti-dsDNA Recombinant <1 IU/mL; JO 1 Antibody <1.0 NEG AI (<1.0 NEG); Sm Antibody <1.0 NEG AI (<1.0 NEG)
--- NOTE | 2019-12-16 16:34 | Critical Care Progress Note ---
Date of Service December 16, 2019 Assessment & Plan (1) Hemoptysis: 1) Acute hypoxemic respiratory failure: Reason Critically Ill: Acute hypoxic respiratory failure PLAN: Neuro: Agitation -Ativan and morphine ordered Resp: Acute hypoxic respiratory failure -Comfort measures only Hemoptysis CV: Atrial fibrillation with rapid ventricular response Fluids/Renal: Acute kidney injury on chronic kidney disease -It is not within the patient wishes to undergo any form of dialysis. Heme: Anemia DVT prophylaxis: Discontinued given comfort measures Endocrine: ICU hyperglycemia protocol -Discontinuing blood sugar checks Vascular access: Peripheral IVs Code Status: DNR/DNI: Comfort measures only I believe the patient's passing is imminent and he is to remain in the ICU until that time. (2) Aortic stenosis: (3) Hyperkalemia: (4) Acute kidney injury: (5) Atrial fibrillation with rapid ventricular response: (6) Pneumonitis: Subjective Patient had increasing agitation overnight and was transitioned to comfort measures only. He appears comfortable today, family agrees at present time. Otherwise unresponsive Review of Systems Review of Systems: Unobtainable due to reduced consciousness Physical Exam Physical Exam: General: Unresponsive Skin: Mottled Head: Atraumatic Ears, nose, mouth and throat: airway patent Cardiovascular: Decreased peripheral perfusion increased capillary refill Respiratory: Increased work of breathing, accessory muscle use, pronounced abdominal breathing, occasional agonal breaths Gastrointestinal: Non distended Musculoskeletal: No deformity Results & Data Vital Signs (Past 12 Hours) Vital Signs Pulse Resp 12/16/19 10:00 90 9 L 12/16/19 09:00 122 H 12 12/16/19 08:00 108 H 10 L 12/16/19 07:00 113 H 10 L Coding Level of Care Code 13380 Subseq Hosp Care Lvl 3 Diagnoses Hemoptysis R04.2 Aortic stenosis I35.0 Hyperkalemia E87.5 Acute kidney injury N17.9 Atrial fibrillation with rapid ventricular response I48.91 Pneumonitis J18.9
[2019-12-16 18:58] LABS: Fungitell (1-3)-B-D-Glucan <31
--- NOTE | 2019-12-28 07:58 | Discharge Summary ---
Date of Service December 16, 2019 Admission HPI Per Admitting Provider Patient is a 79 years old male with past medical history of metastatic prostate cancer to bones on chemotherapy, hypertension, hypercholesterolemia, diabetes mellitus type 2, coronary artery disease, bladder cancer, CKD stage III, COPD, who presents to the emergency room in acute respiratory failure and severe shortness of breath. Patient was treated for pneumonitis approximately week ago. On the EKG patient patient has new onset of atrial fibrillation with rapid ventricular response at rate of 151. Patient denies fever, chills, abdominal pain, frequency, urgency, syncope, near syncope. Labs are reviewed which shows sodium 137, potassium 5.5, chloride 107, BUN 41, creatinine 2.19 which is elevated from patient baseline 1.68 in November 2019, GFR of 28, lactate 2.3, magnesium 2.2, AST 25, ALT 24, troponin 2.6, BNP 4978. Urine all negative except for trace proteins. ABG 7.41, PCO2 33, PO2 144, bicarb 21. Influenza A&B pending. CT scan of the chest shows diffuse skeletal metastasis, small bilateral pleural effusion, mild mediastinal and hilar lymphadenopathy, progressive bilateral groundglass pulmonary opacities. Diagnostic considerations include a multifocal infectious inflammatory pneumonitis versus an atypical appearances of pulmonary edema. A multifocal pneumonitis is favored. The case was discussed with ICU and decision was made to admit patient to ICU for critical care. Principal Diagnosis Acute hypoxemic respiratory failure Discharge Exam no pulse, no respirations and no heart sounds Discharge Data Allergies Allergy/AdvReac Type Severity Reaction Status Date / Time No Known Drug Allergies Allergy Unknown Unknown Verified 11/29/19 00:59 Consultations 12/09/19 10:42 ED Decision to Admit Stat 12/09/19 10:53 Consult Rag Production Worker Stat 12/09/19 10:56 Consult Cardiology Stat 12/09/19 13:49 Consult Cardiology Routine Consult Rag Production Worker Routine 12/11/19 20:34 Consult Palliative Care Routine Ordered Studies 12/09/19 10:58 CT chest wo con Stat Hospital Course (1) Goals of care, counseling/discussion: (2) Acute hypoxemic respiratory failure: Patient is off antibiotics as pneumonia been ruled out. discussed with the welder journeyman, patient was briefly on Bactrim as well for possible P ZACHARIAH. This is since been discontinued as there is no improvement in patient's renal function as worsened. Patient being treated for CHF. Continue high flow nasal cannula as ordered. Further documentation as below. I discussed with welder journeyman, plan now is to try steroids as patient may have either interstitial lung disease process versus lymphangitic carcinomatosis versus cryptogenic organizing pneumonia Despite being on high-dose steroids today and patient has not had significant improvement. Given lack of improvement, it appeared that patient will likely pass away in the hospital. -this was discussed with family. -As per welder journeyman, he would not be appropriate candidate for open lung biopsy or bronchoscopy with biopsy given his tenuous status -Patient at the hospital on 12/16/19 On day of expiring, found to be hypoxemic requiring high amounts of oxygen. Despite Solu-Medrol 125 mg 3 times daily and antibiotics, patient did not improve. Palliative care was consulted, patient was transitioned to comfort measures only as his high requirements of oxygen precluded him from returning home. Patient in hospital. (2) Pneumonitis: Initially treated with vancomycin and Zosyn, this was discontinued after procalcitonin was negative. Patient is currently continued on IV steroids for possible pneumonitis. Laboratory work to rule out autoimmune/vasculitis pathology has been sent (3) Acute heart failure with preserved ejection fraction: Lasix has been held. (4) Atrial fibrillation: in RVR, diltiazem drip and previously been stopped. metoprolol added, titrated again to 50 mg 4 times daily, remains tachycardic. Patient is also on diltiazem immediate release 90 mg 3 times daily. cardiology following Previously on Eliquis although patient is having hemoptysis, this is been held. (5) Anemia: Anemia of chronic disease due to metastatic prostate cancer to the bones. Hb is stable (6) COPD (chronic obstructive pulmonary disease) case management patient: continue Solu Medrol, Duoneb (7) Chronic kidney disease (CKD) stage G3b/A1, moderately decreased glomerular filtration rate (GFR) between 30-44 mL/min/1.73 square meter and albuminuria creatinine ratio less than 30 mg/g: Creatinine imrpoved from 2.3 to 2.0 Continue to monitor. (8) Obstructive sleep apnea: Continue CPAP or BiPAP for acute respiratory failure and as night as needed. (9) Coronary artery disease: no chest pain troponin continues to be slightly high at 2 represents type II ND due to afib with RVR, this is not an acute coronary event, just demand ischemia has not really trended up or down cardiology following (10) Hypercholesteremia: (11) Hypertension: Continue monitoring. As per ICU team (12) Sepsis: no signs of sepsis no current infection antibiotics stopped (3) Atrial fibrillation with rapid ventricular response: (4) Prostate cancer metastatic to bone: Continue following up with oncology. currently on Lupron, got a shot 12/10 Appreciate previous input, patient may be moving towards palliative care, will defer to welder journeyman and oncologist in this respect. Total Time Total Time Spent Total Time Spent (In Minutes): 20 Total Time Includes: Examination of the Patient Discharge Plan Discharge Items Patient Disposition: Reason For Visit: ACUTE RESPIRATORY FAILURE Follow-up/Referrals: Mary Rojo MD [Primary Care Provider] - Stand-Alone Forms: [facility] Admission Data Admit Date/Time: 12/09/19 11:49 Other DC Date/Time DO NOT enter until pt leaves facility: 12/16/19 13:03 Coding Level of Care Code D/C Day Management <30 mins Diagnoses Goals of care, counseling/discussion Z71.89 Acute hypoxemic respiratory failure J96.01 Atrial fibrillation with rapid ventricular response I48.91 Prostate cancer metastatic to bone C61; C79.51
[2020-01-08] MEDS ORDERED: LEUPROLIDE ACETATE 7.5 MG KIT IM SCH (06:00)
== END 2019-12-16 13:03 | disposition expired | DRG 189 ==
LOC: ED 09:45 → 1E 11:49 → SUATTDRO 11:49 → 1E 13:02